=== PATIENT | female | born 1950 | race Caucasian/White ===

== ENCOUNTER 2017-03-22 10:53 | Emergency (ER) | payer MEDICARE ==
--- NOTE | 2017-03-22 11:38 | EDM.PDOC ---
ED HPI GENERAL MEDICAL PROBLEM - General Chief Complaint: Lower Extremity Injury/Pain Stated Complaint: RT HIP PAIN Time Seen by Provider: 03/22/17 11:30 Source of Information: Reports: Patient History Limitations: Reports: No Limitations - History of Present Illness INITIAL COMMENTS - FREE TEXT/NARRATIVE: 58-year-old female wants having intense pain in her right hip, did not respond to an injection that was given a week ago. Onset: Gradual (Over the past several weeks) Location: Reports: Lower Extremity, Right Quality: Reports: Sharp, Stabbing Severity: Moderate Worsens with: Reports: Other (Ambulating, abducting her right leg), Movement - Related Data Allergies Allergy/AdvReac Type Severity Reaction Status Date / Time No Known Allergies Allergy Verified 03/22/17 11:16 Home Meds: Home Meds Lisinopril 30 mg PO DAILY 03/22/17 [History] Past Medical History - Past Surgical History Musculoskeletal Surgical History: Reports: Shoulder Surgery Social & Family History - Tobacco Use Smoking Status *Q: Never Smoker Review of Systems - Review of Systems Review Of Systems: See Below Constitutional: Denies: Fever Respiratory: Denies: Shortness of Breath Cardiovascular: Denies: Chest Pain GI/Abdominal: Denies: Nausea, Vomiting Skin: Denies: Bruising, Erythema Neurological: Denies: Paresthesia ED EXAM, GENERAL - Physical Exam Exam: See Below Exam Limited By: No Limitations General Appearance: Alert, No Apparent Distress (Patient is very uncomfortable, difficulty sitting or laying) Respiratory/Chest: No Respiratory Distress Extremities: Other (Right hip is exquisitely tender to palpation over the greater trochanteric area, with increased pain with abduction of the right hip) Course - Vital Signs Last Recorded V/S: Last Vital Signs Temp 97.3 F 03/22/17 11:24 Pulse 69 03/22/17 11:24 Resp 16 03/22/17 11:24 BP 210/93 H 03/22/17 11:24 Pulse Ox 94 L 03/22/17 11:24 - Orders/Labs/Meds Meds: Medications Discontinued Medications Generic Name Dose Route Start Last Admin Trade Name Freq PRN Reason Stop Dose Admin Bupivacaine HCl 8 ml 03/22/17 12:00 03/22/17 11:49 Marcaine 0.5% INJECT 03/22/17 12:01 8 ml ONETIME ONE Administration Triamcinolone Acetonide 40 mg 03/22/17 12:00 03/22/17 11:49 Kenalog-40 INJECT 03/22/17 12:01 40 mg ONETIME ONE Administration - Re-Assessments/Exams Free Text/Narrative Re-Assessment/Exam: 03/22/17 11:57 The area was marked, sterilized with Betadine and 40 mg of Kenalog with 8 mL of 0.5% Marcaine was injected in a fan distribution through the greater trochanteric bursa. There was marked improvement in pain. She was also put on 60 mg of prednisone daily for the next 4 days. She will call Friday if not improving satisfactorily and we may have to consider an orthopedic consultation. Departure - Departure Time of Disposition: 12:11 Disposition: Home, Self-Care 01 Condition: Good Clinical Impression: Trochanteric bursitis of right hip - Discharge Information Instructions: Hip Bursitis, [id number] Referrals: Vandana Land PA [Primary Care Provider] - Forms: ED Department Discharge Care Plan Goals: Continue with pain medications as needed, take 60 mg of prednisone daily as prescribed for the next 4 days, and increase activity as tolerated. Recheck Friday if not improving satisfactorily.
[2017-03-22] MEDS ORDERED: Bupivacaine 0.5% 30 ML SDV INJECT ONE (12:00)
[2017-03-22] MEDS ORDERED: Triamcinolone Acetonide 40 MG/ML 1 ML MDV INJECT ONE (12:00)
== END 2017-03-22 12:12 | disposition home or self-care (01) ==
LOC: JP.ED 10:53
DX: M70.61 Trochanteric bursitis, right hip (principal); Z79.899 Other long term (current) drug therapy
CPT/HCPCS: 20610; 99283; J3301

== ENCOUNTER 2017-04-09 06:34 | Inpatient (IN) | payer MEDICARE ==
[2017-04-09] MEDS ORDERED: Gentamicin 40 MG/ML 2 ML Vial ONE (06:51)
[2017-04-09] MEDS ORDERED: ceFAZolin 2 GM in Premix Bag 1 BAG IV ONE (07:00)
[2017-04-09] MEDS ORDERED: Acetaminophen 500 MG Tab PO ONE (07:00)
[2017-04-09] MEDS ORDERED: Lactated Ringers 1,000 ML IV SCH (07:00)
[2017-04-09] MEDS ORDERED: Gabapentin 300 MG Cap PO ONE (07:00)
[2017-04-09] MEDS ORDERED: Scopolamine 1.5 MG Transdermal Patch TOP SCH (07:00)
[2017-04-09] MEDS ORDERED: Povidone-Iodine 10% Soln 118.25 ML Bottle ONE (07:01)
[2017-04-09] MEDS ORDERED: Propofol 200 MG/20 ML SDV ONE ×2 (07:17→09:19)
[2017-04-09] MEDS ORDERED: Midazolam 1 MG/ML 2 ML SDV ONE (07:17)
[2017-04-09] MEDS ORDERED: fentaNYL 100 MCG/2 ML SDV ONE (07:17)
[2017-04-09] MEDS ORDERED: Ketamine 500 MG/5 ML MDV IV SCH (08:00)
[2017-04-09] MEDS ORDERED: Ropivacaine 49.25 ML, Ketorolac 30 MG, EPINEPHrine 0.5 MG, cloNIDine 80 MCG, Sodium Chl... INJECT ONE ×5 (08:00)
[2017-04-09] MEDS: Tranexamic Acid 770 MG in Sodium Chloride 0.9% 50 ML IV SCH ×2 (08:55→10:50)
[2017-04-09] MEDS ORDERED: ePHEDrine 50 MG/ML SDV ONE (09:01)
[2017-04-09] MEDS ORDERED: Ondansetron 4 MG/2 ML SDV ONE (09:13)
[2017-04-09] MEDS ORDERED: Lactated Ringers 1,000 ML ONE ×2 (09:13→09:52)
[2017-04-09] MEDS ORDERED: Phenylephrine 1% 10 MG/ML SDV ONE (09:21)
[2017-04-09] MEDS ORDERED: Ondansetron 4 MG/2 ML SDV IVPUSH PRN (10:45)
[2017-04-09] MEDS ORDERED: Aluminum Hydroxide/Magnesium Hydroxide/Simethicone Susp 30 ML Cup PO PRN (10:45)
[2017-04-09] MEDS ORDERED: Morphine 2 MG/ML Syringe IVPUSH PRN (10:45)
[2017-04-09] MEDS ORDERED: oxyCODONE 5 MG Tab PO PRN (10:45)
[2017-04-09] MEDS ORDERED: traMADol 50 MG Tab PO PRN (10:45)
[2017-04-09] MEDS ORDERED: Bisacodyl 5 MG Tab PO PRN (10:45)
[2017-04-09] MEDS ORDERED: Ketorolac 30 MG/ML SDV IVPUSH PRN (10:45)
[2017-04-09] MEDS ORDERED: Sennosides 8.6 MG Tab PO PRN ×2 (10:45→11:56)
[2017-04-09] MEDS ORDERED: Diazepam 5 MG Tab PO PRN (10:45)
[2017-04-09] MEDS ORDERED: ceFAZolin 2 GM in Sodium Chloride 0.9% 50 ML IV SCH (10:45)
[2017-04-09] MEDS ORDERED: Magnesium Hydroxide 400 MG/5 ML Susp 30 ML Cup PO PRN (10:45)
[2017-04-09] MEDS ORDERED: Naloxone 0.4 MG/ML SDV IVPUSH PRN (10:45)
[2017-04-09] MEDS ORDERED: diphenhydrAMINE 50 MG/ML SDV IVPUSH PRN (10:45)
[2017-04-09] MEDS ORDERED: Zolpidem 5 MG Tab PO PRN ×2 (10:45→11:56)
[2017-04-09] MEDS ORDERED: LORazepam 1 MG Tab PO PRN (10:49)
[2017-04-09] MEDS ORDERED: Non-Formulary Medication 1 Each (Trazodone [Trazodone] 50 MG) PO PRN (10:49)
--- NOTE | 2017-04-09 11:01 | CR ---
Pelvis 1V or 2V HISTORY: post op FINDINGS: Postoperative position and alignment right total hip arthroplasty appear satisfactory. No complicatio n can be seen. Air in the soft tissues and joint is consistent with the postoperative state. IMPRESSION: Satisfactory postoperative position and alignment right total hip arthroplasty. No complication ident ified.
[2017-04-09] MEDS ORDERED: Acetaminophen 1,000 MG in Premix Bag 1 BAG IV ONE (11:15)
[2017-04-09] MEDS ORDERED: traZODone 50 MG Tab PO PRN (11:56)
[2017-04-09] MEDS: Acetaminophen/HYDROcodone 325-5 MG Tab PO PRN ×2 (13:32→19:14)
--- NOTE | 2017-04-09 15:23 | OR ---
DATE OF PROCEDURE: 04/09/2017 PREOPERATIVE DIAGNOSIS: Right hip primary osteoarthritis. POSTOPERATIVE DIAGNOSIS: Right hip primary osteoarthritis. PROCEDURE: Right hip total hip arthroplasty. RETURN TO FACTORY CLERK: Zo Chiu NP. Physician physician assistant psychiatry, Zo Chiu NP, played an essential role in assisting in this case, helping to position the patient, retract structures as needed, as well as suturing and cutting sutures as indicated. Her presence improved patient's safety and decreased operative time. ANESTHESIA: Spinal plus conscious sedation. FLUID: Lactated Ringer solution. ESTIMATED BLOOD LOSS: 50 mL. COMPLICATIONS: None. SPECIMEN: None. DISCHARGE DISPOSITION: Stable to PACU. INSTRUMENTATION: Biomet G7 cup 52 mm with 32 mm polyethylene vitamin E coated liner, a size 11 Microplasty standard offset stem with a 36 mm metal head, -3 neck. INDICATIONS FOR THE PROCEDURE: The patient was seen preoperatively in the clinic. She had failed nonoperative treatment. Preoperative imaging confirmed the above-mentioned diagnosis. Risks and benefits of the procedure were explained to the patient. Informed consent was obtained. DETAILS OF PROCEDURE: The patient was seen preoperatively by myself and the Anesthesia staff in the preoperative holding area where the operative site was marked. She was brought to the operative suite by the anesthesia staff where spinal anesthesia was administered plus conscious sedation. A sterile Valderrama catheter was placed. All extremities found to be well padded. The patient was placed into a left lateral recumbent position with an axillary roll. The right lower extremity was then prepped and draped in a sterile manner. Time-out was called identifying the correct patient, correct procedure, the correct site, and antibiotics had begun within appropriate period of time. An incision was made approximately 5 cm proximal to the greater trochanter and approximately 12 cm distal to the greater trochanter, carried down to the deep fascia and then bleeding was controlled during the case with Bovie electrocautery as well as an Aquamantys unit. Two Gelpi's were inserted. The deep fascia was divided over the iliotibial band. This had to be released a little bit later in the case because of decreased mobility to expose the acetabulum. I then went through starting at the level of the lesser trochanter and then going around the insertion of the gluteus medius and gluteus minimus at the greater trochanter and removed the capsule and incised the capsule. I then made a longitudinal incisional cut through the capsule using Bovie electrocautery and then finally over the acetabular rim with a deep #10 blade. I then made a saw cut and then using a corkscrew, removed the head. After this had been accomplished at that point, I needed to release more the iliotibial band in order to get an acetabulum exposed. I used two sharp Homans at 5 and 7 o'clock as well as a Steinmann pin in the superior acetabulum for retraction. I then used a 46 reamer to go down to the medial wall and then sequentially reamed by one up to a 51 mm reamer. This provided good bleeding bone in the acetabulum. I then trialed with a 52. We then copiously irrigated with saline and then inserted a 52. I then replaced the central hole cover and then using a 30 mm drill bit, drilled two holes in the superior and posterior acetabulum. I then placed a 30 mm screw in the superior hole and 25 mm in the posterior hole. I then placed my acetabular liner, tapped this into place, and then using the Pedro ensured that was in place. Please note that I also prior to acetabular preparation, I did remove the labrum using a Pedro and deep #10 blade. I then focused my attention on femoral preparation. I used a Bovie electrocautery unit to expose just under the tip of the greater trochanter and then used a paperboard box maker to remove the lateral bone next to the greater trochanter. I then used a curette to go down the canal and then used a canal reamer followed by lateralizing reamer and then broached from 6 to 11. The 11 appeared to have good stability. I then trialed with a -3 neck and a 36 head. This was fairly difficult to relocate and provided excellent stability with no shuck. We then removed all of our components, copiously irrigated with saline and then placed our final components and then relocated the hip, which provided excellent stability. We then used our Aquamantys unit to control any extra bleeders and then closed with the deep capsule gluteus medius and gluteus minimus with #5 Ethibond, followed by deep closure with #2 Stratafix, followed by 3-0 Stratafix, followed by Prineo and a sterile dressing. The patient was then rolled back into supine position on the hospital bed and taken to PACU in stable condition. Wade Jolly DO /[id number]
[2017-04-09] MEDS: ceFAZolin 2 GM in Sodium Chloride 0.9% 50 ML IV SCH ×2 (16:10→23:28)
[2017-04-09] MEDS: traMADol 50 MG Tab PO PRN (16:23)
[2017-04-09] MEDS: Ketorolac 30 MG/ML SDV IVPUSH SCH ×2 (17:51→23:28)
[2017-04-09] MEDS ORDERED: FLU Vacc TS 2017-18 (65yr UP)/PF 180 MCG/0.5 ML Syringe IM ONE (20:15)
[2017-04-09] MEDS: Docusate Sodium 100 MG Cap PO SCH (20:42)
[2017-04-09] MEDS ORDERED: Docusate Sodium 100 MG Cap PO SCH (21:00)
[2017-04-10] MEDS: Acetaminophen/HYDROcodone 325-5 MG Tab PO PRN (03:29)
[2017-04-10] MEDS: Ketorolac 30 MG/ML SDV IVPUSH SCH ×3 (05:55→18:11)
[2017-04-10] MEDS: Ondansetron 4 MG/2 ML SDV IVPUSH PRN ×2 (08:21→12:14)
[2017-04-10] MEDS ORDERED: Hydrochlorothiazide 25 MG Tab PO SCH (09:00)
[2017-04-10] MEDS ORDERED: Lisinopril 20 MG Tab PO SCH (09:00)
[2017-04-10] MEDS: ceFAZolin 2 GM in Sodium Chloride 0.9% 50 ML IV SCH (10:34)
[2017-04-10] MEDS: Lisinopril 10 MG Tab PO SCH (10:36)
[2017-04-10] MEDS: Sennosides 8.6 MG Tab PO SCH ×2 (10:37→20:38)
[2017-04-10] MEDS: Hydrochlorothiazide 25 MG Tab PO SCH (10:38)
[2017-04-10] MEDS: Bisacodyl 5 MG Tab PO SCH (10:38)
[2017-04-10] MEDS: Aspirin 325 MG Tab.EC PO SCH (10:38)
[2017-04-10] MEDS: Sodium Chloride 0.9% 10 ML Syringe FLUSH SCH (10:39)
[2017-04-10] MEDS: Docusate Sodium 100 MG Cap PO SCH ×2 (10:39→20:38)
[2017-04-10] MEDS ORDERED: Acetaminophen/oxyCODONE 325-5 MG Tab PO PRN (10:45)
[2017-04-10] MEDS ORDERED: Aspirin 325 MG Tab.EC PO SCH (10:45)
--- NOTE | 2017-04-10 13:04 | PCM.PN ---
- General Info Date of Service: 04/10/17 Admission Dx/Problem (Free Text): patient is status postop day 1 of a right total hip replacement. She is doing very well. Patient is tolerating her pain at this time. She does state that the Percocet makes_nauseated. We will switch her to [place]. She is ambulated without any difficulties. Functional Status: Reports: Pain Controlled, Tolerating Diet, Ambulating, Urinating - Patient Data Vitals - Most Recent: Last Vital Signs Temp 37.3 C 04/10/17 11:13 Pulse 72 04/10/17 11:13 Resp 16 04/10/17 11:13 BP 128/68 04/10/17 11:13 Pulse Ox 93 L 04/10/17 11:13 Weight - Most Recent: 167 lb I&O - Last 24 Hours: Intake & Output 04/09/17 04/10/17 04/10/17 22:59 06:59 14:59 Intake Total 160 Output Total 1050 300 200 Balance -890 -300 -200 Lab Results Last 24 Hours: Laboratory Results - last 24 hr 04/10/17 04/10/17 Range/Units 04:10 04:10 WBC 9.7 (4.5-11.0) K/uL RBC 3.56 (3.30-5.50) M/uL Hgb 10.7 L D (12.0-15.0) g/dL Hct 32.1 L (36.0-48.0) % MCV 90 (80-98) fL MCH 30 (27-31) pg MCHC 33 (32-36) % Plt Count 159 (150-400) K/uL Neut % (Auto) 83 H (36-66) % Lymph % (Auto) 9 L (24-44) % Josephine % (Auto) 7 H (2-6) % Eos % (Auto) 1 L (2-4) % Baso % (Auto) 0 (0-1) % Sodium 142 (140-148) mmol/L Potassium 3.8 (3.6-5.2) mmol/L Chloride 108 (100-108) mmol/L Carbon Dioxide 26 (21-32) mmol/L Anion Gap 7.7 (5.0-14.0) mmol/L BUN 17 (7-18) mg/dL Creatinine 0.8 (0.6-1.0) mg/dL Est Cr Clr Drug Dosing 60.56 mL/min Estimated GFR (MDRD) > 60 (>60) Glucose 132 H (74-106) mg/dL Calcium 8.3 L D (8.5-10.1) mg/dL Total Bilirubin 0.2 (0.2-1.0) mg/dL AST 23 D (15-37) U/L ALT 21 (12-78) U/L Alkaline Phosphatase 62 (46-116) U/L Total Protein 4.9 L (6.4-8.2) g/dL Albumin 2.7 L (3.4-5.0) g/dL Globulin 2.2 L (2.3-3.5) g/dL Albumin/Globulin Ratio 1.2 (1.2-2.2) Med Orders - Current: Current Medications Hydrocodone Bitart/Acetaminophen ([place] 325-5 Mg) 2 tab PO Q4H PRN PRN Reason: Pain Last Admin: 04/10/17 03:29 Dose: 2 tab Al Hydroxide/Mg Hydroxide (Mag-Al Plus) 30 ml PO Q4H PRN PRN Reason: Constipation Aspirin (Ecotrin) 325 mg PO DAILY [facility] Last Admin: 04/10/17 10:38 Dose: 325 mg Bisacodyl (Dulcolax) 10 mg PO DAILY [facility] Last Admin: 04/10/17 10:38 Dose: 10 mg Diazepam (Valium.) 5 mg PO Q6H PRN PRN Reason: Spasms Diphenhydramine HCl (Benadryl) 25 mg IVPUSH Q4H PRN PRN Reason: Itching Docusate Sodium (Colace) 100 mg PO BID [facility] Last Admin: 04/10/17 10:39 Dose: 100 mg Hydrochlorothiazide (Hydrochlorothiazide) 25 mg PO DAILY [facility] Last Admin: 04/10/17 10:38 Dose: 25 mg Lactated Ringer's (Ringers, Lactated) 1,000 mls @ 0 mls/hr IV ASDIRECTED [facility] PRN Reason: KVO Last Admin: 04/09/17 07:45 Dose: 100 mls/hr Ketorolac Tromethamine (Toradol) 15 mg IVPUSH Q6H [facility] Stop: 04/14/17 12:00 Last Admin: 04/10/17 05:55 Dose: 15 mg Lisinopril (Prinivil) 30 mg PO DAILY [facility] Last Admin: 04/10/17 10:36 Dose: 30 mg Lorazepam (Ativan) 1 mg PO DAILY PRN PRN Reason: Anxiety Magnesium Hydroxide (Milk Of Magnesia) 30 ml PO BID PRN PRN Reason: Constipation Morphine Sulfate (Morphine) 2 mg IVPUSH Q2H PRN PRN Reason: Pain Naloxone HCl (Narcan) 0.1 mg IVPUSH ONETIME PRN PRN Reason: Oversedation Ondansetron HCl (Zofran) 8 mg IVPUSH Q4H PRN PRN Reason: Nausea/Vomiting Last Admin: 04/10/17 12:14 Dose: 8 mg Scopolamine (Transderm-Scop) 1.5 mg TOP Q72H [facility] Stop: 04/12/17 05:00 Last Admin: 04/09/17 07:12 Dose: 1.5 mg Senna (Senna) 8.6 mg PO BID [facility] Last Admin: 04/10/17 10:37 Dose: 8.6 mg Sodium Chloride (Saline Flush) 10 ml FLUSH DAILY [facility] Last Admin: 04/10/17 10:39 Dose: 10 ml Tramadol HCl (Ultram) 100 mg PO Q6H PRN PRN Reason: Pain Last Admin: 04/09/17 16:23 Dose: 100 mg Trazodone HCl (Trazodone) 50 mg PO BEDTIME PRN PRN Reason: Insomnia Zolpidem Tartrate (Ambien) 5 mg PO BEDTIME PRN PRN Reason: Sleep Discontinued Medications Acetaminophen (Tylenol Extra Strength) 1,000 mg PO ONETIME ONE Stop: 04/09/17 07:01 Last Admin: 04/09/17 07:12 Dose: 1,000 mg Aspirin (Ecotrin) 325 mg PO DAILY [facility] Bisacodyl (Dulcolax) 10 mg PO DAILY PRN PRN Reason: Constipation Ropivacaine 49.25 ml/Ketorolac Tromethamine 30 mg/Epinephrine HCl 0.5 mg/ Clonidine HCl 80 mcg/ Sodium Chloride 48.45 ml 0 ml INJECT ONETIME ONE Stop: 04/09/17 08:01 Last Admin: 04/09/17 09:56 Dose: 100 ml Docusate Sodium (Colace) 100 mg PO BID [facility] Ephedrine Sulfate (Ephedrine Sulfate) Confirm Administered Dose 50 mg .ROUTE .STK-MED ONE Stop: 04/09/17 09:02 Fentanyl (Sublimaze) Confirm Administered Dose 100 mcg .ROUTE .STK-MED ONE Stop: 04/09/17 07:18 Gabapentin (Neurontin) 300 mg PO ONETIME ONE Stop: 04/09/17 07:01 Last Admin: 04/09/17 07:11 Dose: 300 mg Gentamicin Sulfate (Gentamicin) Confirm Administered Dose 240 mg .ROUTE .ST- MED ONE Stop: 04/09/17 06:52 Last Admin: 04/09/17 09:37 Dose: 240 mg Hydrochlorothiazide (Hydrochlorothiazide) 25 mg PO DAILY [facility] Cefazolin Sodium 2 gm/ Premix 20 mls @ 600 mls/hr IV ONETIME ONE Stop: 04/09/17 07:01 Last Admin: 04/09/17 08:30 Dose: 600 mls/hr Tranexamic Acid 770 mg/ Sodium (Chloride) 57.7 mls @ 230.8 mls/hr IV Q3H [facility] Stop: 04/09/17 11:14 Last Admin: 04/09/17 10:50 Dose: 230.8 mls/hr Ketamine HCl 100 mg/ Sodium (Chloride) 100 mls @ 17.1 mls/hr IV ASDIRECTED [facility] PRN Reason: 5 MCG/KG/MIN Lactated Ringer's (Ringers, Lactated) Confirm Administered Dose 1,000 mls @ as directed .ROUTE .STK-MED ONE Stop: 04/09/17 09:14 Lactated Ringer's (Ringers, Lactated) Confirm Administered Dose 1,000 mls @ as directed .ROUTE .ST-MED ONE Stop: 04/09/17 09:53 Acetaminophen 1,000 mg/ Premix 100 mls @ 400 mls/hr IV NOW ONE Stop: 04/09/17 11:29 Last Admin: 04/09/17 12:25 Dose: 400 mls/hr Cefazolin Sodium 2 gm/ Sodium (Chloride) 50 mls @ 100 mls/hr IV Q8H [facility] Stop: 04/10/17 03:14 Last Admin: 04/09/17 12:11 Dose: Not Given Cefazolin Sodium 2 gm/ Sodium (Chloride) 50 mls @ 100 mls/hr IV Q8H [facility] Stop: 04/10/17 08:29 Last Admin: 04/10/17 10:34 Dose: 100 mls/hr Influenza Virus Vaccine (Pharmacy To Dose - Influenza Vaccine) 1 each IM ONETIME ONE Stop: 04/10/17 13:01 Influenza Virus Vaccine (Fluzone High-Dose ) 180 mcg IM .ONCE ONE Stop: 04/09/17 20:16 Ketamine HCl (Ketalar) 29 mg IV ASDIRECTED [facility] Ketorolac Tromethamine (Toradol) 15 mg IVPUSH Q8H PRN PRN Reason: Pain Stop: 04/14/17 10:45 Last Admin: 04/09/17 12:00 Dose: 15 mg Lisinopril (Prinivil) 30 mg PO DAILY [facility] Midazolam HCl (Versed 1 Mg/Ml) Confirm Administered Dose 2 mg .ROUTE .STK-MED ONE Stop: 04/09/17 07:18 Non-Formulary Medication (Trazodone [Trazodone]) 50 mg PO BEDTIME PRN PRN Reason: Insomnia Ondansetron HCl (Zofran) Confirm Administered Dose 4 mg .ROUTE .STK-MED ONE Stop: 04/09/17 09:14 Ondansetron HCl (Zofran) 8 mg IVPUSH Q4H PRN PRN Reason: Nausea/Vomiting Oxycodone HCl (Oxycodone) 10 mg PO Q4H PRN PRN Reason: Pain Stop: 04/10/17 10:45 Oxycodone/Acetaminophen (Percocet 325-5 Mg) 2 tab PO Q4H PRN PRN Reason: Pain Phenylephrine HCl (Uche-Synephrine) Confirm Administered Dose 10 mg .ROUTE .STK- MED ONE Stop: 04/09/17 09:22 Povidone Iodine (Betadine 10% Soln) Confirm Administered Dose 1 ml .ROUTE .STK- MED ONE Stop: 04/09/17 07:02 Last Admin: 04/09/17 09:38 Dose: 1 ml Propofol (Diprivan 20 Ml) Confirm Administered Dose 200 mg .ROUTE .STK-MED ONE Stop: 04/09/17 07:18 Propofol (Diprivan 20 Ml) Confirm Administered Dose 200 mg .ROUTE .STK-MED ONE Stop: 04/09/17 09:20 Senna (Senna) 8.6 mg PO BID PRN PRN Reason: Constipation Senna (Senna) 8.6 mg PO BID PRN PRN Reason: Constipation Tramadol HCl (Ultram) 100 mg PO Q6H PRN PRN Reason: Pain Zolpidem Tartrate (Ambien) 5 mg PO BEDTIME PRN PRN Reason: Sleep - Exam General: Alert, Oriented Extremities: Slow Capillary Refill, Limited Range of Motion Peripheral Pulses: 2+: Dorsalis Pedis (L), Dorsalis Pedis (R) Skin: Warm, Dry, Intact Wound/Incisions: Healing Well, Dressing Dry and Intact Neurological: No New Focal Deficit Psy/Mental Status: Alert - Problem List Review Problem List Initiated/Reviewed/Updated: Yes - My Orders Last 24 Hours: My Active Orders 04/09/17 12:47 Acetaminophen/HYDROcodone [[place] 325-5 MG] 2 tab PO Q4H PRN 04/09/17 18:00 Ketorolac [Toradol] 15 mg IVPUSH Q6H 04/09/17 21:00 Docusate Sodium [Colace] 100 mg PO BID 04/10/17 09:00 Aspirin [Ecotrin] 325 mg PO DAILY Bisacodyl [Dulcolax] 10 mg PO DAILY Hydrochlorothiazide 25 mg PO DAILY Lisinopril [Prinivil] 30 mg PO DAILY Sennosides [Senna] 8.6 mg PO BID Sodium Chloride 0.9% [Saline Flush] 10 ml FLUSH DAILY 04/10/17 10:45 Convert IV to Saline Lock [OM.PC] PER UNIT ROUTINE Ice Therapy [OM.PC] PER UNIT ROUTINE 04/11/17 05:15 CBC WITH AUTO DIFF [HEME] DAILY COMPREHENSIVE METABOLIC PN,CMP [CHEM] DAILY 04/12/17 05:15 CBC WITH AUTO DIFF [HEME] DAILY COMPREHENSIVE METABOLIC PN,CMP [CHEM] DAILY 04/13/17 05:15 CBC WITH AUTO DIFF [HEME] DAILY COMPREHENSIVE METABOLIC PN,CMP [CHEM] DAILY - Plan Plan:: at this time patient is doing very well. We will follow up with her in the morning. We'll plan for discharge tomorrow. I would like patient to be on scheduled Toradol and [place] at this time. She can have Zofran as needed. He is to continue with PT OT for strengthening today.
[2017-04-11] MEDS: Ketorolac 30 MG/ML SDV IVPUSH SCH ×4 (00:02→17:49)
[2017-04-11] MEDS ORDERED: Bisacodyl 10 MG Supp RECTAL PRN (08:07)
[2017-04-11] MEDS: Metoclopramide 10 MG/2 ML SDV IVPUSH SCH ×3 (08:26→21:35)
[2017-04-11] MEDS: Hydrochlorothiazide 25 MG Tab PO SCH (08:57)
[2017-04-11] MEDS: Docusate Sodium 100 MG Cap PO SCH ×2 (08:57→21:35)
[2017-04-11] MEDS: Aspirin 325 MG Tab.EC PO SCH (08:58)
[2017-04-11] MEDS: Lisinopril 10 MG Tab PO SCH (08:58)
[2017-04-11] MEDS: Bisacodyl 5 MG Tab PO SCH (08:58)
[2017-04-11] MEDS: Sennosides 8.6 MG Tab PO SCH ×2 (08:59→21:35)
[2017-04-11] MEDS: Sodium Chloride 0.9% 10 ML Syringe FLUSH SCH (08:59)
[2017-04-12] MEDS: Ketorolac 30 MG/ML SDV IVPUSH SCH ×3 (00:16→11:39)
[2017-04-12] MEDS ORDERED: Acetaminophen 325 MG Tab PO PRN (02:14)
[2017-04-12] MEDS: Metoclopramide 10 MG/2 ML SDV IVPUSH SCH ×2 (02:44→08:31)
[2017-04-12] MEDS: Docusate Sodium 100 MG Cap PO SCH (08:20)
[2017-04-12] MEDS: Bisacodyl 5 MG Tab PO SCH (08:20)
[2017-04-12] MEDS: Sennosides 8.6 MG Tab PO SCH (08:20)
[2017-04-12] MEDS: traMADol 50 MG Tab PO PRN (08:29)
[2017-04-12] MEDS: Aspirin 325 MG Tab.EC PO SCH (08:30)
[2017-04-12] MEDS: Sodium Chloride 0.9% 10 ML Syringe FLUSH SCH (08:30)
[2017-04-12] MEDS: Hydrochlorothiazide 25 MG Tab PO SCH (08:30)
[2017-04-12] MEDS: Lisinopril 10 MG Tab PO SCH (08:31)
--- NOTE | 2017-04-12 10:13 | PCM.PN ---
- General Info Date of Service: 04/11/17 Admission Dx/Problem (Free Text): Patient is pod 2 of a right total hip. She is doing well. She is having nausea from her pain medication at this time. She is ambulating without any difficulties. Functional Status: Reports: Pain Controlled, Tolerating Diet, Ambulating, Urinating - Patient Data Vitals - Most Recent: Last Vital Signs Temp 36.6 C 04/12/17 07:41 Pulse 70 04/12/17 07:41 Resp 16 04/12/17 07:41 BP 132/68 04/12/17 08:31 Pulse Ox 96 04/12/17 07:41 Weight - Most Recent: 167 lb I&O - Last 24 Hours: Intake & Output 04/11/17 04/12/17 04/12/17 22:59 06:59 14:59 Intake Total 240 Balance 240 Lab Results Last 24 Hours: Laboratory Results - last 24 hr 04/12/17 04/12/17 Range/Units 04:52 04:52 WBC 9.1 (4.5-11.0) K/uL RBC 3.30 (3.30-5.50) M/uL Hgb 9.8 L (12.0-15.0) g/dL Hct 30.0 L (36.0-48.0) % MCV 91 (80-98) fL MCH 30 (27-31) pg MCHC 33 (32-36) % Plt Count 186 (150-400) K/uL Neut % (Auto) 80 H (36-66) % Lymph % (Auto) 13 L (24-44) % [place] % (Auto) 6 (2-6) % Eos % (Auto) 1 L (2-4) % Baso % (Auto) 0 (0-1) % Sodium 140 (140-148) mmol/L Potassium 3.3 L (3.6-5.2) mmol/L Chloride 106 (100-108) mmol/L Carbon Dioxide 28 (21-32) mmol/L Anion Gap 9.3 (5.0-14.0) mmol/L BUN 14 (7-18) mg/dL Creatinine 0.7 (0.6-1.0) mg/dL Est Cr Clr Drug Dosing 69.21 mL/min Estimated GFR (MDRD) > 60 (>60) Glucose 132 H (74-106) mg/dL Calcium 8.8 (8.5-10.1) mg/dL Total Bilirubin 0.4 (0.2-1.0) mg/dL AST 23 (15-37) U/L ALT 17 (12-78) U/L Alkaline Phosphatase 53 (46-116) U/L Total Protein 5.2 L (6.4-8.2) g/dL Albumin 2.4 L (3.4-5.0) g/dL Globulin 2.8 (2.3-3.5) g/dL Albumin/Globulin Ratio 0.9 L (1.2-2.2) Med Orders - Current: Current Medications Acetaminophen (Tylenol) 650 mg PO Q4H PRN PRN Reason: Pain Last Admin: 04/12/17 02:33 Dose: 650 mg Hydrocodone Bitart/Acetaminophen ([place] 325-5 Mg) 2 tab PO Q4H PRN PRN Reason: Pain Last Admin: 04/10/17 03:29 Dose: 2 tab Al Hydroxide/Mg Hydroxide (Mag-Al Plus) 30 ml PO Q4H PRN PRN Reason: Constipation Aspirin (Ecotrin) 325 mg PO DAILY [facility] Last Admin: 04/12/17 08:30 Dose: 325 mg Bisacodyl (Dulcolax) 10 mg PO DAILY [facility] Last Admin: 04/12/17 08:20 Dose: Not Given Bisacodyl (Dulcolax) 10 mg RECTAL DAILY PRN PRN Reason: Constipation Diazepam (Valium.) 5 mg PO Q6H PRN PRN Reason: Spasms Diphenhydramine HCl (Benadryl) 25 mg IVPUSH Q4H PRN PRN Reason: Itching Docusate Sodium (Colace) 100 mg PO BID [facility] Last Admin: 04/12/17 08:20 Dose: Not Given Hydrochlorothiazide (Hydrochlorothiazide) 25 mg PO DAILY [facility] Last Admin: 04/12/17 08:30 Dose: 25 mg Lactated Ringer's (Ringers, Lactated) 1,000 mls @ 0 mls/hr IV ASDIRECTED [facility] PRN Reason: KVO Last Admin: 04/09/17 07:45 Dose: 100 mls/hr Ketorolac Tromethamine (Toradol) 15 mg IVPUSH Q6H [facility] Stop: 04/14/17 12:00 Last Admin: 04/12/17 05:59 Dose: 15 mg Lisinopril (Prinivil) 30 mg PO DAILY [facility] Last Admin: 04/12/17 08:31 Dose: 30 mg Lorazepam (Ativan) 1 mg PO DAILY PRN PRN Reason: Anxiety Last Admin: 04/12/17 02:33 Dose: 0.5 mg Magnesium Hydroxide (Milk Of Magnesia) 30 ml PO BID PRN PRN Reason: Constipation Metoclopramide HCl (Reglan) 10 mg IVPUSH Q6H [facility] Last Admin: 04/12/17 08:31 Dose: 10 mg Morphine Sulfate (Morphine) 2 mg IVPUSH Q2H PRN PRN Reason: Pain Naloxone HCl (Narcan) 0.1 mg IVPUSH ONETIME PRN PRN Reason: Oversedation Ondansetron HCl (Zofran) 8 mg IVPUSH Q4H PRN PRN Reason: Nausea/Vomiting Last Admin: 04/10/17 12:14 Dose: 8 mg Senna (Senna) 8.6 mg PO BID [facility] Last Admin: 04/12/17 08:20 Dose: Not Given Sodium Chloride (Saline Flush) 10 ml FLUSH DAILY [facility] Last Admin: 04/12/17 08:30 Dose: 10 ml Tramadol HCl (Ultram) 100 mg PO Q6H PRN PRN Reason: Pain Last Admin: 04/12/17 08:29 Dose: 100 mg Trazodone HCl (Trazodone) 50 mg PO BEDTIME PRN PRN Reason: Insomnia Zolpidem Tartrate (Ambien) 5 mg PO BEDTIME PRN PRN Reason: Sleep Discontinued Medications Acetaminophen (Tylenol Extra Strength) 1,000 mg PO ONETIME ONE Stop: 04/09/17 07:01 Last Admin: 04/09/17 07:12 Dose: 1,000 mg Aspirin (Ecotrin) 325 mg PO DAILY [facility] Bisacodyl (Dulcolax) 10 mg PO DAILY PRN PRN Reason: Constipation Ropivacaine 49.25 ml/Ketorolac Tromethamine 30 mg/Epinephrine HCl 0.5 mg/ Clonidine HCl 80 mcg/ Sodium Chloride 48.45 ml 0 ml INJECT ONETIME ONE Stop: 04/09/17 08:01 Last Admin: 04/09/17 09:56 Dose: 100 ml Docusate Sodium (Colace) 100 mg PO BID [facility] Ephedrine Sulfate (Ephedrine Sulfate) Confirm Administered Dose 50 mg .ROUTE .[facility] ONE Stop: 04/09/17 09:02 Fentanyl (Sublimaze) Confirm Administered Dose 100 mcg .ROUTE .[facility] ONE Stop: 04/09/17 07:18 Gabapentin (Neurontin) 300 mg PO ONETIME ONE Stop: 04/09/17 07:01 Last Admin: 04/09/17 07:11 Dose: 300 mg Gentamicin Sulfate (Gentamicin) Confirm Administered Dose 240 mg .ROUTE .[facility] ONE Stop: 04/09/17 06:52 Last Admin: 04/09/17 09:37 Dose: 240 mg Hydrochlorothiazide (Hydrochlorothiazide) 25 mg PO DAILY [facility] Cefazolin Sodium 2 gm/ Premix 20 mls @ 600 mls/hr IV ONETIME ONE Stop: 04/09/17 07:01 Last Admin: 04/09/17 08:30 Dose: 600 mls/hr Tranexamic Acid 770 mg/ Sodium (Chloride) 57.7 mls @ 230.8 mls/hr IV Q3H [facility] Stop: 04/09/17 11:14 Last Admin: 04/09/17 10:50 Dose: 230.8 mls/hr Ketamine HCl 100 mg/ Sodium (Chloride) 100 mls @ 17.1 mls/hr IV ASDIRECTED [facility] PRN Reason: 5 MCG/KG/MIN Lactated Ringer's (Ringers, Lactated) Confirm Administered Dose 1,000 mls @ as directed .ROUTE .[facility] ONE Stop: 04/09/17 09:14 Lactated Ringer's (Ringers, Lactated) Confirm Administered Dose 1,000 mls @ as directed .ROUTE .[facility] ONE Stop: 04/09/17 09:53 Acetaminophen 1,000 mg/ Premix 100 mls @ 400 mls/hr IV NOW ONE Stop: 04/09/17 11:29 Last Admin: 04/09/17 12:25 Dose: 400 mls/hr Cefazolin Sodium 2 gm/ Sodium (Chloride) 50 mls @ 100 mls/hr IV Q8H [facility] Stop: 04/10/17 03:14 Last Admin: 04/09/17 12:11 Dose: Not Given Cefazolin Sodium 2 gm/ Sodium (Chloride) 50 mls @ 100 mls/hr IV Q8H [facility] Stop: 04/10/17 08:29 Last Admin: 04/10/17 10:34 Dose: 100 mls/hr Influenza Virus Vaccine (Pharmacy To Dose - Influenza Vaccine) 1 each IM ONETIME ONE Stop: 04/10/17 13:01 Influenza Virus Vaccine (Fluzone High-Dose 2016-) 180 mcg IM .ONCE ONE Stop: 04/09/17 20:16 Last Admin: 04/10/17 20:34 Dose: Not Given Ketamine HCl (Ketalar) 29 mg IV ASDIRECTED [facility] Ketorolac Tromethamine (Toradol) 15 mg IVPUSH Q8H PRN PRN Reason: Pain Stop: 04/14/17 10:45 Last Admin: 04/09/17 12:00 Dose: 15 mg Lisinopril (Prinivil) 30 mg PO DAILY [facility] Midazolam HCl (Versed 1 Mg/Ml) Confirm Administered Dose 2 mg .ROUTE .[facility] ONE Stop: 04/09/17 07:18 Non-Formulary Medication (Trazodone [Trazodone]) 50 mg PO BEDTIME PRN PRN Reason: Insomnia Ondansetron HCl (Zofran) Confirm Administered Dose 4 mg .ROUTE .[facility] ONE Stop: 04/09/17 09:14 Ondansetron HCl (Zofran) 8 mg IVPUSH Q4H PRN PRN Reason: Nausea/Vomiting Oxycodone HCl (Oxycodone) 10 mg PO Q4H PRN PRN Reason: Pain Stop: 04/10/17 10:45 Oxycodone/Acetaminophen (Percocet 325-5 Mg) 2 tab PO Q4H PRN PRN Reason: Pain Phenylephrine HCl ([place]-Synephrine) Confirm Administered Dose 10 mg .ROUTE .STK- MED ONE Stop: 04/09/17 09:22 Povidone Iodine (Betadine 10% Soln) Confirm Administered Dose 1 ml .ROUTE .STK- MED ONE Stop: 04/09/17 07:02 Last Admin: 04/09/17 09:38 Dose: 1 ml Propofol (Diprivan 20 Ml) Confirm Administered Dose 200 mg .ROUTE .STK-MED ONE Stop: 04/09/17 07:18 Propofol (Diprivan 20 Ml) Confirm Administered Dose 200 mg .ROUTE .STK-MED ONE Stop: 04/09/17 09:20 Scopolamine (Transderm-Scop) 1.5 mg TOP Q72H [facility] Stop: 04/12/17 05:00 Last Admin: 04/09/17 07:12 Dose: 1.5 mg Senna (Senna) 8.6 mg PO BID PRN PRN Reason: Constipation Senna (Senna) 8.6 mg PO BID PRN PRN Reason: Constipation Tramadol HCl (Ultram) 100 mg PO Q6H PRN PRN Reason: Pain Zolpidem Tartrate (Ambien) 5 mg PO BEDTIME PRN PRN Reason: Sleep - Exam General: Alert, Oriented Peripheral Pulses: 2+: Dorsalis Pedis (L), Dorsalis Pedis (R) Skin: Warm, Dry, Intact Wound/Incisions: Healing Well, Dressing Dry and Intact - Problem List Review Problem List Initiated/Reviewed/Updated: Yes - My Orders Last 24 Hours: My Active Orders 04/12/17 10:09 Ready for Discharge [RC] PER UNIT ROUTINE 04/13/17 05:15 CBC WITH AUTO DIFF [HEME] DAILY COMPREHENSIVE METABOLIC PN,CMP [CHEM] DAILY - Plan Plan:: at this time patient is doing very well. We will follow up with her in the morning. We are going to give her a suppository today. We are also going to change her pain medication to ultram and start reglan for her nausea. She will continue to work on strengthening today with PT/OT.
--- NOTE | 2017-04-12 10:14 | PCM.DCSUM1 ---
Discharge Summary - Hospital Course Free Text/Narrative:: Patient is pod 3 of a right total hip. She is doing well. Pain is under control. She is having no nausea at this time. She is ambulating without any difficulties. - Discharge Data Discharge Date: 04/12/17 Discharge Disposition: Home, Self-Care 01 Condition: Good - Patient Summary/Data Consults: Consultations 04/09/17 10:45 OT Evaluation and Treatment [CONS] Routine Please Evaluate and Treat. OT Reason for Consult: Strengthening This query below is only for informational purposes and is not editable. PT Evaluation and Treatment [CONS] Routine Please Evaluate and Treat. PT Reason for Consult: Strengthening This query below is only for informational purposes and is not editable. - Patient Instructions Diet: Usual Diet as Tolerated Activity: Apply Ice, As Tolerated Driving: Do Not Drive Showering/Bathing: May Shower, No Tub Bathing/Swimming Wound/Incision Care: Keep Operative Site/Wound Site Clean and Dry Notify Provider of: Fever, Increased Pain, Swelling and Redness, Drainage, Nausea and/or Vomiting - Discharge Plan Prescriptions/Med Rec: Aspirin [Ecotrin] 325 mg PO DAILY #30 tab.ec Docusate Sodium [Colace] 100 mg PO BID #60 cap Ondansetron [Zofran ODT] 4 mg PO Q6H PRN #30 tab.dis PRN Reason: Nausea traMADol [Ultram] 50 mg PO Q6H PRN #90 tablet PRN Reason: Pain Home Medications: Home Meds Lisinopril 30 mg PO DAILY 03/22/17 [History] Hydrochlorothiazide 25 mg PO DAILY 04/09/17 [History] LORazepam [Ativan] 1 mg PO DAILY PRN 04/09/17 [History] traZODone 50 mg PO BEDTIME PRN 04/09/17 [History] Aspirin [Ecotrin] 325 mg PO DAILY #30 tab.ec 04/12/17 [Rx] Docusate Sodium [Colace] 100 mg PO BID #60 cap 04/12/17 [Rx] Ondansetron [Zofran ODT] 4 mg PO Q6H PRN #30 tab.dis 04/12/17 [Rx] traMADol [Ultram] 50 mg PO Q6H PRN #90 tablet 04/12/17 [Rx] - Discharge Summary/Plan Comment DC Time >30 min.: Yes Discharge Summary/Plan Comment: Patient will be dcd today with home PT. She is to follow up in 2 weeks. She is to take ultram as needed for pain. - Patient Data Vitals - Most Recent: Last Vital Signs Temp 36.6 C 04/12/17 07:41 Pulse 70 04/12/17 07:41 Resp 16 04/12/17 07:41 BP 132/68 04/12/17 08:31 Pulse Ox 96 04/12/17 07:41 Weight - Most Recent: 167 lb I&O - Last 24 hours: Intake & Output 04/11/17 04/12/17 04/12/17 22:59 06:59 14:59 Intake Total 240 Balance 240 Lab Results - Last 24 hrs: Laboratory Results - last 24 hr 04/12/17 04/12/17 Range/Units 04:52 04:52 WBC 9.1 (4.5-11.0) K/uL RBC 3.30 (3.30-5.50) M/uL Hgb 9.8 L (12.0-15.0) g/dL Hct 30.0 L (36.0-48.0) % MCV 91 (80-98) fL MCH 30 (27-31) pg MCHC 33 (32-36) % Plt Count 186 (150-400) K/uL Neut % (Auto) 80 H (36-66) % Lymph % (Auto) 13 L (24-44) % [place] % (Auto) 6 (2-6) % Eos % (Auto) 1 L (2-4) % Baso % (Auto) 0 (0-1) % Sodium 140 (140-148) mmol/L Potassium 3.3 L (3.6-5.2) mmol/L Chloride 106 (100-108) mmol/L Carbon Dioxide 28 (21-32) mmol/L Anion Gap 9.3 (5.0-14.0) mmol/L BUN 14 (7-18) mg/dL Creatinine 0.7 (0.6-1.0) mg/dL Est Cr Clr Drug Dosing 69.21 mL/min Estimated GFR (MDRD) > 60 (>60) Glucose 132 H (74-106) mg/dL Calcium 8.8 (8.5-10.1) mg/dL Total Bilirubin 0.4 (0.2-1.0) mg/dL AST 23 (15-37) U/L ALT 17 (12-78) U/L Alkaline Phosphatase 53 (46-116) U/L Total Protein 5.2 L (6.4-8.2) g/dL Albumin 2.4 L (3.4-5.0) g/dL Globulin 2.8 (2.3-3.5) g/dL Albumin/Globulin Ratio 0.9 L (1.2-2.2) Med Orders - Current: Current Medications Acetaminophen (Tylenol) 650 mg PO Q4H PRN PRN Reason: Pain Last Admin: 04/12/17 02:33 Dose: 650 mg Hydrocodone Bitart/Acetaminophen ([place] 325-5 Mg) 2 tab PO Q4H PRN PRN Reason: Pain Last Admin: 04/10/17 03:29 Dose: 2 tab Al Hydroxide/Mg Hydroxide (Mag-Al Plus) 30 ml PO Q4H PRN PRN Reason: Constipation Aspirin (Ecotrin) 325 mg PO DAILY [facility] Last Admin: 04/12/17 08:30 Dose: 325 mg Bisacodyl (Dulcolax) 10 mg PO DAILY [facility] Last Admin: 04/12/17 08:20 Dose: Not Given Bisacodyl (Dulcolax) 10 mg RECTAL DAILY PRN PRN Reason: Constipation Diazepam (Valium.) 5 mg PO Q6H PRN PRN Reason: Spasms Diphenhydramine HCl (Benadryl) 25 mg IVPUSH Q4H PRN PRN Reason: Itching Docusate Sodium (Colace) 100 mg PO BID [facility] Last Admin: 04/12/17 08:20 Dose: Not Given Hydrochlorothiazide (Hydrochlorothiazide) 25 mg PO DAILY [facility] Last Admin: 04/12/17 08:30 Dose: 25 mg Lactated Ringer's (Ringers, Lactated) 1,000 mls @ 0 mls/hr IV ASDIRECTED [facility] PRN Reason: KVO Last Admin: 04/09/17 07:45 Dose: 100 mls/hr Ketorolac Tromethamine (Toradol) 15 mg IVPUSH Q6H [facility] Stop: 04/14/17 12:00 Last Admin: 04/12/17 05:59 Dose: 15 mg Lisinopril (Prinivil) 30 mg PO DAILY [facility] Last Admin: 04/12/17 08:31 Dose: 30 mg Lorazepam (Ativan) 1 mg PO DAILY PRN PRN Reason: Anxiety Last Admin: 04/12/17 02:33 Dose: 0.5 mg Magnesium Hydroxide (Milk Of Magnesia) 30 ml PO BID PRN PRN Reason: Constipation Metoclopramide HCl (Reglan) 10 mg IVPUSH Q6H [facility] Last Admin: 04/12/17 08:31 Dose: 10 mg Morphine Sulfate (Morphine) 2 mg IVPUSH Q2H PRN PRN Reason: Pain Naloxone HCl (Narcan) 0.1 mg IVPUSH ONETIME PRN PRN Reason: Oversedation Ondansetron HCl (Zofran) 8 mg IVPUSH Q4H PRN PRN Reason: Nausea/Vomiting Last Admin: 04/10/17 12:14 Dose: 8 mg Senna (Senna) 8.6 mg PO BID [facility] Last Admin: 04/12/17 08:20 Dose: Not Given Sodium Chloride (Saline Flush) 10 ml FLUSH DAILY [facility] Last Admin: 04/12/17 08:30 Dose: 10 ml Tramadol HCl (Ultram) 100 mg PO Q6H PRN PRN Reason: Pain Last Admin: 04/12/17 08:29 Dose: 100 mg Trazodone HCl (Trazodone) 50 mg PO BEDTIME PRN PRN Reason: Insomnia Zolpidem Tartrate (Ambien) 5 mg PO BEDTIME PRN PRN Reason: Sleep Discontinued Medications Acetaminophen (Tylenol Extra Strength) 1,000 mg PO ONETIME ONE Stop: 04/09/17 07:01 Last Admin: 04/09/17 07:12 Dose: 1,000 mg Aspirin (Ecotrin) 325 mg PO DAILY [facility] Bisacodyl (Dulcolax) 10 mg PO DAILY PRN PRN Reason: Constipation Ropivacaine 49.25 ml/Ketorolac Tromethamine 30 mg/Epinephrine HCl 0.5 mg/ Clonidine HCl 80 mcg/ Sodium Chloride 48.45 ml 0 ml INJECT ONETIME ONE Stop: 04/09/17 08:01 Last Admin: 04/09/17 09:56 Dose: 100 ml Docusate Sodium (Colace) 100 mg PO BID [facility] Ephedrine Sulfate (Ephedrine Sulfate) Confirm Administered Dose 50 mg .ROUTE .[facility] ONE Stop: 04/09/17 09:02 Fentanyl (Sublimaze) Confirm Administered Dose 100 mcg .ROUTE .[facility] ONE Stop: 04/09/17 07:18 Gabapentin (Neurontin) 300 mg PO ONETIME ONE Stop: 04/09/17 07:01 Last Admin: 04/09/17 07:11 Dose: 300 mg Gentamicin Sulfate (Gentamicin) Confirm Administered Dose 240 mg .ROUTE .[facility] ONE Stop: 04/09/17 06:52 Last Admin: 04/09/17 09:37 Dose: 240 mg Hydrochlorothiazide (Hydrochlorothiazide) 25 mg PO DAILY [facility] Cefazolin Sodium 2 gm/ Premix 20 mls @ 600 mls/hr IV ONETIME ONE Stop: 04/09/17 07:01 Last Admin: 04/09/17 08:30 Dose: 600 mls/hr Tranexamic Acid 770 mg/ Sodium (Chloride) 57.7 mls @ 230.8 mls/hr IV Q3H [facility] Stop: 04/09/17 11:14 Last Admin: 04/09/17 10:50 Dose: 230.8 mls/hr Ketamine HCl 100 mg/ Sodium (Chloride) 100 mls @ 17.1 mls/hr IV ASDIRECTED [facility] PRN Reason: 5 MCG/KG/MIN Lactated Ringer's (Ringers, Lactated) Confirm Administered Dose 1,000 mls @ as directed .ROUTE .[facility] ONE Stop: 04/09/17 09:14 Lactated Ringer's (Ringers, Lactated) Confirm Administered Dose 1,000 mls @ as directed .ROUTE .[facility] ONE Stop: 04/09/17 09:53 Acetaminophen 1,000 mg/ Premix 100 mls @ 400 mls/hr IV NOW ONE Stop: 04/09/17 11:29 Last Admin: 04/09/17 12:25 Dose: 400 mls/hr Cefazolin Sodium 2 gm/ Sodium (Chloride) 50 mls @ 100 mls/hr IV Q8H [facility] Stop: 04/10/17 03:14 Last Admin: 04/09/17 12:11 Dose: Not Given Cefazolin Sodium 2 gm/ Sodium (Chloride) 50 mls @ 100 mls/hr IV Q8H [facility] Stop: 04/10/17 08:29 Last Admin: 04/10/17 10:34 Dose: 100 mls/hr Influenza Virus Vaccine (Pharmacy To Dose - Influenza Vaccine) 1 each IM ONETIME ONE Stop: 04/10/17 13:01 Influenza Virus Vaccine (Fluzone High-Dose ) 180 mcg IM .ONCE ONE Stop: 04/09/17 20:16 Last Admin: 04/10/17 20:34 Dose: Not Given Ketamine HCl (Ketalar) 29 mg IV ASDIRECTED [facility] Ketorolac Tromethamine (Toradol) 15 mg IVPUSH Q8H PRN PRN Reason: Pain Stop: 04/14/17 10:45 Last Admin: 04/09/17 12:00 Dose: 15 mg Lisinopril (Prinivil) 30 mg PO DAILY [facility] Midazolam HCl (Versed 1 Mg/Ml) Confirm Administered Dose 2 mg .ROUTE .[facility] ONE Stop: 04/09/17 07:18 Non-Formulary Medication (Trazodone [Trazodone]) 50 mg PO BEDTIME PRN PRN Reason: Insomnia Ondansetron HCl (Zofran) Confirm Administered Dose 4 mg .ROUTE .[facility] Stop: 04/09/17 09:14 Ondansetron HCl (Zofran) 8 mg IVPUSH Q4H PRN PRN Reason: Nausea/Vomiting Oxycodone HCl (Oxycodone) 10 mg PO Q4H PRN PRN Reason: Pain Stop: 04/10/17 10:45 Oxycodone/Acetaminophen (Percocet 325-5 Mg) 2 tab PO Q4H PRN PRN Reason: Pain Phenylephrine HCl ([place]-Synephrine) Confirm Administered Dose 10 mg .ROUTE .STK- MED ONE Stop: 04/09/17 09:22 Povidone Iodine (Betadine 10% Soln) Confirm Administered Dose 1 ml .ROUTE .[facility]K- MED ONE Stop: 04/09/17 07:02 Last Admin: 04/09/17 09:38 Dose: 1 ml Propofol (Diprivan 20 Ml) Confirm Administered Dose 200 mg .ROUTE .STK-MED ONE Stop: 04/09/17 07:18 Propofol (Diprivan 20 Ml) Confirm Administered Dose 200 mg .ROUTE .STK-MED ONE Stop: 04/09/17 09:20 Scopolamine (Transderm-Scop) 1.5 mg TOP Q72H [facility] Stop: 04/12/17 05:00 Last Admin: 04/09/17 07:12 Dose: 1.5 mg Senna (Senna) 8.6 mg PO BID PRN PRN Reason: Constipation Senna (Senna) 8.6 mg PO BID PRN PRN Reason: Constipation Tramadol HCl (Ultram) 100 mg PO Q6H PRN PRN Reason: Pain Zolpidem Tartrate (Ambien) 5 mg PO BEDTIME PRN PRN Reason: Sleep - Exam General: Reports: Alert, Oriented Extremities: Normal Inspection, Normal Range of Motion Skin: Reports: Warm, Dry, Intact Wound/Incisions: Reports: Healing Well, Dressing Dry and Intact Neurological: Reports: No New Focal Deficit Psy/Mental Status: Reports: Alert *Q Meaningful Use (DIS) - VTE *Q VTE Criteria *Q: - Stroke *Q Stroke Criteria *Q: - AMI *Q AMI Criteria *Q:
== END 2017-04-12 13:20 | disposition home or self-care (01) | DRG 470 ==
LOC: JP.MS 06:34 → JP.SDS 06:38 → EDSTATUS 09:15 → JP.MS 10:45 → UNDOADMIN 10:45 → JP.MS 11:56 → UNDODISIN 04-12 13:20
PROVIDERS: ADMIT Orthopaedic Surgery; ATTEND Orthopaedic Surgery
PROC: 0SR90JZ Replacement of Right Hip Joint with Synthetic Substitute, Open Approach (ICD-10-PCS; principal; 2017-04-09)
DX: M16.11 Unilateral primary osteoarthritis, right hip (principal); Z79.82 Long term (current) use of aspirin
CPT/HCPCS: 36415; 72170; 72170-26; 80053; 85025; 94762; 97110-GP; 97161-GP; 97165-GO; 97530-GP; 97535-GP; A9270-GY; C1776; J0131; J0171; J0690; J0735; J1580; J1885; J2250; J2370; J2405; J2704; J2765; J2795; J3010; J7050; J7120

== ENCOUNTER 2018-06-17 13:27 | Outpatient (CLI) | payer MEDICARE ==
[2018-06-17] MEDS ORDERED: Bupivacaine 0.25% 10 ML SDV ONE (13:50)
[2018-06-17] MEDS ORDERED: methylPREDNISolone Acetate 40 MG/ML SDV ONE (13:50)
--- NOTE | 2018-06-17 16:42 | ANES ---
DATE OF SERVICE: 06/17/2018 INDICATIONS: Ms. Zuñiga is a 67-year-old female patient, referred to the [facility] to us by . She is here today for her 3rd epidural. She is very happy with the relief she has gotten from her other two. Please see the orders for the patient's preprocedure diagnosis as well as ICD-10 code. The risks and benefits of procedure were explained to the patient and she wished to proceed with an epidural steroid injection. TECHNIQUE: I did place the epidural to the L5-S1 using a 17-gauge Tuohy needle in loss of resistance technique. The epidural had very good feel throughout, and the epidural space was easily identified. There was negative CSF, negative blood, negative paresthesias noted. Therefore, 40 mg of Depo-Medrol and 2 mL of 0.25% Sensorcaine with 7 mL preservative-free normal saline were injected with ease. The patient tolerated procedure very nicely. She is going to return as needed for any further injections. She was discharged from the [facility] per protocol. Charly Brink CRNA /[id number]
== END 2018-06-17 14:03 | disposition home or self-care (01) ==
LOC: JP.PAIN 13:27
PROVIDERS: ATTEND Specialist
DX: M48.061 Spinal stenosis, lumbar region without neurogenic claudication (principal); M43.16 Spondylolisthesis, lumbar region
CPT/HCPCS: 62322; J1030; J3490

== ENCOUNTER 2019-02-03 10:22 | Inpatient (IN) | payer MEDICARE ==
[~2019-02-03 10:22] MED LIST: Midazolam 1 MG/ML 2 ML SDV ONE; Propofol 200 MG/20 ML SDV ONE; fentaNYL 100 MCG/2 ML SDV ONE
[2019-02-03] MEDS ORDERED: Lactated Ringers 1,000 ML IV SCH (10:30)
[2019-02-03] MEDS: Nozin Nasal Sanitizer NASBOTH SCH ×2 (11:15→21:03)
[2019-02-03] MEDS ORDERED: Povidone-Iodine 10% Soln 118.25 ML Bottle ONE (11:53)
[2019-02-03] MEDS ORDERED: Scopolamine 1.5 MG Transdermal Patch TRDERM SCH (12:00)
[2019-02-03] MEDS: ceFAZolin 2 GM in Sodium Chloride 0.9% 50 ML IV ONE ×2 (13:34→19:30)
[2019-02-03] MEDS ORDERED: Tranexamic Acid 740 MG in Sodium Chloride 0.9% 50 ML IV ONE (13:45)
[2019-02-03] MEDS ORDERED: Ondansetron 4 MG/2 ML SDV ONE (14:29)
[2019-02-03] MEDS ORDERED: Dexamethasone 4 MG/ML SDV ONE (14:29)
[2019-02-03] MEDS ORDERED: ePHEDrine 50 MG/ML SDV ONE (14:36)
[2019-02-03] MEDS ORDERED: Lactated Ringers 1,000 ML ONE (14:39)
[2019-02-03] MEDS ORDERED: Propofol 200 MG/20 ML SDV ONE ×3 (14:53→16:41)
[2019-02-03] MEDS ORDERED: Midazolam 1 MG/ML 2 ML SDV ONE ×4 (14:55→16:42)
[2019-02-03] MEDS ORDERED: fentaNYL 100 MCG/2 ML SDV ONE ×2 (16:41→17:11)
[2019-02-03] MEDS ORDERED: Acetaminophen/oxyCODONE 325-5 MG Tab PO PRN (18:43)
[2019-02-03] MEDS: Morphine 2 MG/ML Syringe IVPUSH PRN ×3 (19:03→22:26)
[2019-02-03] MEDS: Sodium Chloride 0.9% 1,000 ML IV SCH (19:04)
[2019-02-03] MEDS ORDERED: traZODone 50 MG Tab PO PRN (22:36)
[2019-02-04] MEDS ORDERED: Sodium Chloride 0.9% 50 ML ONE (00:30)
[2019-02-04] MEDS ORDERED: ceFAZolin 1 GM Vial ONE (00:30)
[2019-02-04] MEDS: ceFAZolin 1 GM in Premix Bag 1 BAG IV SCH ×3 (00:41→17:55)
[2019-02-04] MEDS: traMADol 50 MG Tab PO PRN ×2 (00:45→20:01)
[2019-02-04] MEDS: Morphine 2 MG/ML Syringe IVPUSH PRN (00:46)
[2019-02-04] MEDS: Sodium Chloride 0.9% 1,000 ML IV SCH ×3 (02:56→19:59)
[2019-02-04] MEDS ORDERED: Ondansetron 4 MG/2 ML SDV IVPUSH PRN (07:23)
[2019-02-04] MEDS: Nozin Nasal Sanitizer NASBOTH SCH ×2 (08:03→20:02)
[2019-02-04] MEDS: SCOPOLAMINE PATCH CHECK TOP SCH (08:04)
[2019-02-04] MEDS: Docusate Sodium 100 MG Cap PO SCH ×2 (08:04→20:01)
[2019-02-04] MEDS: Hydrochlorothiazide 25 MG Tab PO SCH (08:04)
[2019-02-04] MEDS: Lisinopril 10 MG Tab PO SCH (08:10)
[2019-02-04] MEDS ORDERED: Sodium Chloride 0.9% 500 ML IV ONE (10:00)
[2019-02-04] MEDS: Enoxaparin 30 MG/0.3 ML Syringe SUBCUT SCH (10:23)
[2019-02-04] MEDS: Ketorolac 30 MG/ML SDV IVPUSH SCH ×3 (10:24→21:56)
--- NOTE | 2019-02-04 17:42 | CRLCR ---
INDICATION: Postoperative evaluation of the hip. COMPARISON: 08/04/2018 CT. TECHNIQUE: Single view of the pelvis (2 images). FINDINGS: Interval placement of cerclage wiring about the proximal right femur. Right total hip arthroplasty is situated in anatomic alignment without evidence of hardware complication on this single view. Soft tissue gas about the right hip reflects recent surgery. Mild left hip joint space narrowing and osteophyte formation. No acute fracture or dislocation. IMPRESSION: Right hip arthroplasty with interval placement of cerclage wiring. Dictated by Ramo Mosley MD @ Feb 04 2019 5:38PM Signed by Dr. Ramo Mosley @ Feb 04 2019 5:40PM
[2019-02-04] MEDS: Acetaminophen 325 MG Tab PO PRN (20:01)
[2019-02-05] MEDS: ceFAZolin 1 GM in Premix Bag 1 BAG IV SCH ×4 (00:03→23:23)
[2019-02-05] MEDS: Sodium Chloride 0.9% 1,000 ML IV SCH (04:11)
[2019-02-05] MEDS: Ketorolac 30 MG/ML SDV IVPUSH SCH ×4 (05:14→21:42)
--- NOTE | 2019-02-05 05:55 | CRLCR ---
HISTORY: Possible pneumonia. COMPARISON: None available FINDINGS: A portable erect AP view of the chest was obtained at 0529 hours. The lungs are clear. No focal or diffuse infiltrates are present. The heart is normal in size. The mediastinum is normal in appearance. There is mild scoliosis of the thoracic spine convex towards the right. The osseous structures are otherwise normal in appearance. IMPRESSION: No active disease seen in the chest. Dictated by Bradford Bradley MD @ Feb 05 2019 5:52AM Signed by Dr. Bradford Bradley @ Feb 05 2019 5:52AM
[2019-02-05] MEDS: traMADol 50 MG Tab PO PRN ×2 (08:19→21:56)
[2019-02-05] MEDS: Docusate Sodium 100 MG Cap PO SCH ×2 (08:20→21:42)
[2019-02-05] MEDS: Nozin Nasal Sanitizer NASBOTH SCH ×2 (08:20→21:42)
[2019-02-05] MEDS: Enoxaparin 30 MG/0.3 ML Syringe SUBCUT SCH (08:21)
[2019-02-05] MEDS: SCOPOLAMINE PATCH CHECK TOP SCH (08:21)
[2019-02-05] MEDS: Hydrochlorothiazide 25 MG Tab PO SCH (08:21)
[2019-02-05] MEDS: Lisinopril 10 MG Tab PO SCH (11:17)
--- NOTE | 2019-02-05 11:41 | PCM.SURGPN ---
- General Info Date of Service: 02/04/19 Date of Surgery/Procedure: 02/04/19 POD#: 1 Functional Status: Reports: Pain Controlled, Tolerating Diet, Ambulating - Review of Systems General: Reports: No Symptoms HEENT: Reports: No Symptoms Pulmonary: Reports: No Symptoms Cardiovascular: Reports: No Symptoms Gastrointestinal: Reports: No Symptoms Genitourinary: Reports: No Symptoms Musculoskeletal: Reports: Leg Pain Skin: Reports: No Symptoms Neurological: Reports: No Symptoms Psychiatric: Reports: No Symptoms - Patient Data Vitals - Most Recent: Last Vital Signs Temp 36.9 C 02/05/19 11:03 Pulse 64 02/05/19 11:03 Resp 18 02/05/19 11:03 BP 160/66 H 02/05/19 11:17 Pulse Ox 98 02/05/19 11:03 Weight - Most Recent: 74.208 kg I&O - Last 24 Hours: Intake & Output 02/04/19 02/05/19 02/05/19 22:59 06:59 14:59 Intake Total 886 1843 490 Output Total 124 249 7244 Balance 436 893 -710 Med Orders - Current: Current Medications Acetaminophen (Tylenol) 650 mg PO Q4H PRN PRN Reason: Temperature Last Admin: 02/04/19 20:01 Dose: 650 mg Bandage/Support Products ( Nasal Timber Selector) 1 applic NASBOTH BID [facility] Last Admin: 02/05/19 08:20 Dose: 1 applic Docusate Sodium (Colace) 100 mg PO BID [facility] Last Admin: 02/05/19 08:20 Dose: 100 mg Enoxaparin Sodium (Lovenox) 30 mg SUBCUT DAILY [facility] Last Admin: 02/05/19 08:21 Dose: 30 mg Hydrochlorothiazide (Hydrochlorothiazide) 25 mg PO DAILY [facility] Last Admin: 02/05/19 08:21 Dose: 25 mg Sodium Chloride (Normal Saline) 1,000 mls @ 125 mls/hr IV ASDIRECTED [facility] Last Admin: 02/05/19 04:11 Dose: 125 mls/hr Cefazolin Sodium/Dextrose 1 gm (/ Premix) 50 mls @ 100 mls/hr IV Q8H [facility] Stop: 02/06/19 00:22 Last Admin: 02/05/19 08:20 Dose: 100 mls/hr Ketorolac Tromethamine (Toradol) 30 mg IVPUSH Q6H [facility] Stop: 02/09/19 04:01 Last Admin: 02/05/19 09:23 Dose: 30 mg Lisinopril (Prinivil) 30 mg PO DAILY [facility] Last Admin: 02/05/19 11:17 Dose: 30 mg Lorazepam (Ativan) 0.5 mg PO Q8H PRN PRN Reason: Anxiety Morphine Sulfate (Morphine) 2 mg IVPUSH Q1H PRN PRN Reason: Pain Last Admin: 02/04/19 00:46 Dose: 2 mg Scopolamine Patch (Check) 1 each TOP DAILY [facility] Stop: 02/05/19 12:00 Last Admin: 02/05/19 08:21 Dose: Not Given Ondansetron HCl (Zofran) 4 mg IVPUSH Q6H PRN PRN Reason: Nausea Last Admin: 02/04/19 08:10 Dose: 4 mg Oxycodone/Acetaminophen (Percocet 325-5 Mg) 1 - 2 tab PO Q4H PRN PRN Reason: Pain Tramadol HCl (Ultram) 50 mg PO Q6H PRN PRN Reason: Pain (mild 1-3) Last Admin: 02/05/19 08:19 Dose: 50 mg Trazodone HCl (Trazodone) 50 mg PO BEDTIME PRN PRN Reason: Insomnia Discontinued Medications Cefazolin Sodium (Ancef) Confirm Administered Dose 1 gm .ROUTE .STK-MED ONE Stop: 02/04/19 00:31 Last Admin: 02/04/19 00:41 Dose: Not Given Dexamethasone (Dexamethasone) Confirm Administered Dose 4 mg .ROUTE .STK-MED ONE Stop: 02/03/19 14:30 Ephedrine Sulfate (Ephedrine Sulfate) Confirm Administered Dose 50 mg .ROUTE .STK-MED ONE Stop: 02/03/19 14:37 Fentanyl (Sublimaze) Confirm Administered Dose 100 mcg .ROUTE .STK-MED ONE Stop: 02/03/19 08:56 Fentanyl (Sublimaze) Confirm Administered Dose 100 mcg .ROUTE .STK-MED ONE Stop: 02/03/19 16:42 Fentanyl (Sublimaze) Confirm Administered Dose 100 mcg .ROUTE .STK-MED ONE Stop: 02/03/19 17:12 Cefazolin Sodium 2 gm/ Sodium (Chloride) 50 mls @ 100 mls/hr IV ONETIME ONE Stop: 02/03/19 11:19 Last Admin: 02/03/19 19:30 Dose: Not Given Lactated Ringer's (Ringers, Lactated) 1,000 mls @ 100 mls/hr IV ASDIRECTED [facility] Last Admin: 02/03/19 11:15 Dose: 100 mls/hr Tranexamic Acid 740 mg/ Sodium (Chloride) 57.4 mls @ 229.6 mls/hr IV ONETIME ONE Stop: 02/03/19 13:59 Last Admin: 02/03/19 13:38 Dose: 229.6 mls/hr Lactated Ringer's (Ringers, Lactated) Confirm Administered Dose 1,000 mls @ as directed .ROUTE .STK-MED ONE Stop: 02/03/19 14:40 Sodium Chloride (Normal Saline) Confirm Administered Dose 50 mls @ as directed .ROUTE .STK-MED ONE Stop: 02/04/19 00:31 Last Admin: 02/04/19 00:41 Dose: Not Given Sodium Chloride (Normal Saline) 500 mls @ 999 mls/hr IV .BOLUS ONE Stop: 02/04/19 10:30 Last Admin: 02/04/19 10:14 Dose: 999 mls/hr Midazolam HCl (Versed 1 Mg/Ml) Confirm Administered Dose 2 mg .ROUTE .STK-MED ONE Stop: 02/03/19 08:57 Midazolam HCl (Versed 1 Mg/Ml) Confirm Administered Dose 2 mg .ROUTE .STK-MED ONE Stop: 02/03/19 14:56 Midazolam HCl (Versed 1 Mg/Ml) Confirm Administered Dose 2 mg .ROUTE .STK-MED ONE Stop: 02/03/19 15:59 Midazolam HCl (Versed 1 Mg/Ml) Confirm Administered Dose 2 mg .ROUTE .STK-MED ONE Stop: 02/03/19 16:24 Midazolam HCl (Versed 1 Mg/Ml) Confirm Administered Dose 2 mg .ROUTE .STK-MED ONE Stop: 02/03/19 16:43 Ondansetron HCl (Zofran) Confirm Administered Dose 4 mg .ROUTE .STK-MED ONE Stop: 02/03/19 14:30 Povidone Iodine (Betadine 10% Soln) Confirm Administered Dose 1 ml .ROUTE .STK- MED ONE Stop: 02/03/19 11:54 Last Admin: 02/03/19 14:27 Dose: 40 ml Propofol (Diprivan 20 Ml) Confirm Administered Dose 200 mg .ROUTE .STK-MED ONE Stop: 02/03/19 08:56 Propofol (Diprivan 20 Ml) Confirm Administered Dose 200 mg .ROUTE .STK-MED ONE Stop: 02/03/19 14:54 Propofol (Diprivan 20 Ml) Confirm Administered Dose 200 mg .ROUTE .STK-MED ONE Stop: 02/03/19 16:00 Propofol (Diprivan 20 Ml) Confirm Administered Dose 200 mg .ROUTE .STK-MED ONE Stop: 02/03/19 16:42 Scopolamine (Transderm-Scop) 1.5 mg TRDERM Q72H [facility] Stop: 02/05/19 10:00 Last Admin: 02/03/19 12:09 Dose: 1.5 mg - Exam Wound/Incisions: Dressing Dry and Intact General: Alert, Oriented HEENT: Pupils Equal Neck: Supple Cardiovascular: Regular Rate, Regular Rhythm GI/Abdominal Exam: Normal Bowel Sounds, Soft, Non-Tender, No Distention Extremities: Leg Pain, Limited Range of Motion Skin: Warm, Dry Neurological: No New Focal Deficit Psy/Mental Status: Alert, Normal Affect, Normal Mood - Problem List & Annotations (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 SNOMED Code(s): 284556758, 786173461, 715418526, 743646737 Code(s): Z96.649 - PRESENCE OF UNSPECIFIED ARTIFICIAL HIP JOINT Status: Acute Current Visit: Yes - Problem List Review Problem List Initiated/Reviewed/Updated: Yes - My Orders Last 24 Hours: Active Orders 24 hr Category Date Time Status OT Evaluation and Treatment [CONS] Routine Cons 02/04/19 13:33 Active Regular Diet [DIET] Diet 02/04/19 Dinner Active Acetaminophen [Tylenol] Med 02/04/19 19:44 Active 650 mg PO Q4H PRN Medication Orders Acetaminophen (Tylenol) 650 mg PO Q4H PRN PRN Reason: Temperature Last Admin: 02/04/19 20:01 Dose: 650 mg Bandage/Support Products ( Nasal Timber Selector) 1 applic NASBOTH BID [facility] Last Admin: 02/05/19 08:20 Dose: 1 applic Admin: 02/04/19 20:02 Dose: 1 applic Admin: 02/04/19 08:03 Dose: 1 applic Admin: 02/03/19 21:03 Dose: 1 applic Admin: 02/03/19 11:15 Dose: 1 applic Docusate Sodium (Colace) 100 mg PO BID [facility] Last Admin: 02/05/19 08:20 Dose: 100 mg Admin: 02/04/19 20:01 Dose: 100 mg Admin: 02/04/19 08:04 Dose: 100 mg Enoxaparin Sodium (Lovenox) 30 mg SUBCUT DAILY [facility] Last Admin: 02/05/19 08:21 Dose: 30 mg Admin: 02/04/19 10:23 Dose: 30 mg Hydrochlorothiazide (Hydrochlorothiazide) 25 mg PO DAILY [facility] Last Admin: 02/05/19 08:21 Dose: 25 mg Admin: 02/04/19 08:04 Dose: 25 mg Sodium Chloride (Normal Saline) 1,000 mls @ 125 mls/hr IV ASDIRECTED [facility] Last Admin: 02/05/19 04:11 Dose: 125 mls/hr Infusion: 02/05/19 03:59 Dose: 125 mls/hr Admin: 02/04/19 19:59 Dose: 125 mls/hr Infusion: 02/04/19 19:59 Dose: 125 mls/hr Admin: 02/04/19 12:11 Dose: 125 mls/hr Infusion: 02/04/19 10:56 Dose: 125 mls/hr Admin: 02/04/19 02:56 Dose: 125 mls/hr Infusion: 02/04/19 02:56 Dose: 125 mls/hr Admin: 02/03/19 19:04 Dose: 125 mls/hr Cefazolin Sodium/Dextrose 1 gm (/ Premix) 50 mls @ 100 mls/hr IV Q8H [facility] Stop: 02/06/19 00:22 Last Admin: 02/05/19 08:20 Dose: 100 mls/hr Infusion: 02/05/19 00:33 Dose: 100 mls/hr Admin: 02/05/19 00:03 Dose: 100 mls/hr Infusion: 02/04/19 18:25 Dose: 100 mls/hr Admin: 02/04/19 17:55 Dose: 100 mls/hr Infusion: 02/04/19 08:33 Dose: 100 mls/hr Admin: 02/04/19 08:03 Dose: 100 mls/hr Infusion: 02/04/19 01:11 Dose: 100 mls/hr Admin: 02/04/19 00:41 Dose: 100 mls/hr Ketorolac Tromethamine (Toradol) 30 mg IVPUSH Q6H [facility] Stop: 02/09/19 04:01 Last Admin: 02/05/19 09:23 Dose: 30 mg Admin: 02/05/19 05:14 Dose: 30 mg Admin: 02/04/19 21:56 Dose: 30 mg Admin: 02/04/19 17:55 Dose: 30 mg Admin: 02/04/19 10:24 Dose: 30 mg Lisinopril (Prinivil) 30 mg PO DAILY [facility] Last Admin: 02/05/19 11:17 Dose: 30 mg Admin: 02/04/19 08:10 Dose: 30 mg Lorazepam (Ativan) 0.5 mg PO Q8H PRN PRN Reason: Anxiety Morphine Sulfate (Morphine) 2 mg IVPUSH Q1H PRN PRN Reason: Pain Last Admin: 02/04/19 00:46 Dose: 2 mg Admin: 02/03/19 22:26 Dose: 2 mg Admin: 02/03/19 21:11 Dose: 2 mg Admin: 02/03/19 19:03 Dose: 2 mg Scopolamine Patch (Check) 1 each TOP DAILY [facility] Stop: 02/05/19 12:00 Last Admin: 02/05/19 08:21 Dose: Admin: 02/04/19 08:04 Dose: Ondansetron HCl (Zofran) 4 mg IVPUSH Q6H PRN PRN Reason: Nausea Last Admin: 02/04/19 08:10 Dose: 4 mg Oxycodone/Acetaminophen (Percocet 325-5 Mg) 1 - 2 tab PO Q4H PRN PRN Reason: Pain Tramadol HCl (Ultram) 50 mg PO Q6H PRN PRN Reason: Pain (mild 1-3) Last Admin: 02/05/19 08:19 Dose: 50 mg Admin: 02/04/19 20:01 Dose: 50 mg Admin: 02/04/19 00:45 Dose: 50 mg Trazodone HCl (Trazodone) 50 mg PO BEDTIME PRN PRN Reason: Insomnia - Assessment Assessment (Free Text/Narrative):: Mild hypotension, H/H post op ok, did well overnight, has been up walking already - Plan Plan (Free Text/Narrative):: Continue PT/OT, watch BP and I/Os, anticipate discontinuing Valderrama in am.
--- NOTE | 2019-02-05 11:44 | PCM.SURGPN ---
- General Info Date of Service: 02/05/19 Date of Surgery/Procedure: 02/03/19 POD#: 2 Functional Status: Reports: Pain Controlled, Tolerating Diet, Ambulating - Review of Systems General: Reports: Fever HEENT: Reports: No Symptoms Pulmonary: Reports: No Symptoms Cardiovascular: Reports: No Symptoms Gastrointestinal: Reports: No Symptoms Genitourinary: Reports: No Symptoms Musculoskeletal: Reports: Leg Pain Skin: Reports: No Symptoms Neurological: Reports: No Symptoms Psychiatric: Reports: No Symptoms - Patient Data Vitals - Most Recent: Last Vital Signs Temp 36.9 C 02/05/19 11:03 Pulse 64 02/05/19 11:03 Resp 18 02/05/19 11:03 BP 160/66 H 02/05/19 11:17 Pulse Ox 98 02/05/19 11:03 Weight - Most Recent: 74.208 kg I&O - Last 24 Hours: Intake & Output 02/04/19 02/05/19 02/05/19 22:59 06:59 14:59 Intake Total 886 1843 490 Output Total 380 012 8094 Balance 436 893 -710 Med Orders - Current: Current Medications Acetaminophen (Tylenol) 650 mg PO Q4H PRN PRN Reason: Temperature Last Admin: 02/04/19 20:01 Dose: 650 mg Bandage/Support Products ( Nasal Piano Teacher) 1 applic NASBOTH BID [facility] Last Admin: 02/05/19 08:20 Dose: 1 applic Docusate Sodium (Colace) 100 mg PO BID [facility] Last Admin: 02/05/19 08:20 Dose: 100 mg Enoxaparin Sodium (Lovenox) 30 mg SUBCUT DAILY [facility] Last Admin: 02/05/19 08:21 Dose: 30 mg Hydrochlorothiazide (Hydrochlorothiazide) 25 mg PO DAILY [facility] Last Admin: 02/05/19 08:21 Dose: 25 mg Sodium Chloride (Normal Saline) 1,000 mls @ 125 mls/hr IV ASDIRECTED [facility] Last Admin: 02/05/19 04:11 Dose: 125 mls/hr Cefazolin Sodium/Dextrose 1 gm (/ Premix) 50 mls @ 100 mls/hr IV Q8H [facility] Stop: 02/06/19 00:22 Last Admin: 02/05/19 08:20 Dose: 100 mls/hr Ketorolac Tromethamine (Toradol) 30 mg IVPUSH Q6H [facility] Stop: 02/09/19 04:01 Last Admin: 02/05/19 09:23 Dose: 30 mg Lisinopril (Prinivil) 30 mg PO DAILY [facility] Last Admin: 02/05/19 11:17 Dose: 30 mg Lorazepam (Ativan) 0.5 mg PO Q8H PRN PRN Reason: Anxiety Morphine Sulfate (Morphine) 2 mg IVPUSH Q1H PRN PRN Reason: Pain Last Admin: 02/04/19 00:46 Dose: 2 mg Scopolamine Patch (Check) 1 each TOP DAILY [facility] Stop: 02/05/19 12:00 Last Admin: 02/05/19 08:21 Dose: Not Given Ondansetron HCl (Zofran) 4 mg IVPUSH Q6H PRN PRN Reason: Nausea Last Admin: 02/04/19 08:10 Dose: 4 mg Oxycodone/Acetaminophen (Percocet 325-5 Mg) 1 - 2 tab PO Q4H PRN PRN Reason: Pain Tramadol HCl (Ultram) 50 mg PO Q6H PRN PRN Reason: Pain (mild 1-3) Last Admin: 02/05/19 08:19 Dose: 50 mg Trazodone HCl (Trazodone) 50 mg PO BEDTIME PRN PRN Reason: Insomnia Discontinued Medications Cefazolin Sodium (Ancef) Confirm Administered Dose 1 gm .ROUTE .STK-MED ONE Stop: 02/04/19 00:31 Last Admin: 02/04/19 00:41 Dose: Not Given Dexamethasone (Dexamethasone) Confirm Administered Dose 4 mg .ROUTE .STK-MED ONE Stop: 02/03/19 14:30 Ephedrine Sulfate (Ephedrine Sulfate) Confirm Administered Dose 50 mg .ROUTE .STK-MED ONE Stop: 02/03/19 14:37 Fentanyl (Sublimaze) Confirm Administered Dose 100 mcg .ROUTE .STK-MED ONE Stop: 02/03/19 08:56 Fentanyl (Sublimaze) Confirm Administered Dose 100 mcg .ROUTE .STK-MED ONE Stop: 02/03/19 16:42 Fentanyl (Sublimaze) Confirm Administered Dose 100 mcg .ROUTE .STK-MED ONE Stop: 02/03/19 17:12 Cefazolin Sodium 2 gm/ Sodium (Chloride) 50 mls @ 100 mls/hr IV ONETIME ONE Stop: 02/03/19 11:19 Last Admin: 02/03/19 19:30 Dose: Not Given Lactated Ringer's (Ringers, Lactated) 1,000 mls @ 100 mls/hr IV ASDIRECTED [facility] Last Admin: 02/03/19 11:15 Dose: 100 mls/hr Tranexamic Acid 740 mg/ Sodium (Chloride) 57.4 mls @ 229.6 mls/hr IV ONETIME ONE Stop: 02/03/19 13:59 Last Admin: 02/03/19 13:38 Dose: 229.6 mls/hr Lactated Ringer's (Ringers, Lactated) Confirm Administered Dose 1,000 mls @ as directed .ROUTE .STK-MED ONE Stop: 02/03/19 14:40 Sodium Chloride (Normal Saline) Confirm Administered Dose 50 mls @ as directed .ROUTE .STK-MED ONE Stop: 02/04/19 00:31 Last Admin: 02/04/19 00:41 Dose: Not Given Sodium Chloride (Normal Saline) 500 mls @ 999 mls/hr IV .BOLUS ONE Stop: 02/04/19 10:30 Last Admin: 02/04/19 10:14 Dose: 999 mls/hr Midazolam HCl (Versed 1 Mg/Ml) Confirm Administered Dose 2 mg .ROUTE .STK-MED ONE Stop: 02/03/19 08:57 Midazolam HCl (Versed 1 Mg/Ml) Confirm Administered Dose 2 mg .ROUTE .STK-MED ONE Stop: 02/03/19 14:56 Midazolam HCl (Versed 1 Mg/Ml) Confirm Administered Dose 2 mg .ROUTE .STK-MED ONE Stop: 02/03/19 15:59 Midazolam HCl (Versed 1 Mg/Ml) Confirm Administered Dose 2 mg .ROUTE .STK-MED ONE Stop: 02/03/19 16:24 Midazolam HCl (Versed 1 Mg/Ml) Confirm Administered Dose 2 mg .ROUTE .STK-MED ONE Stop: 02/03/19 16:43 Ondansetron HCl (Zofran) Confirm Administered Dose 4 mg .ROUTE .STK-MED ONE Stop: 02/03/19 14:30 Povidone Iodine (Betadine 10% Soln) Confirm Administered Dose 1 ml .ROUTE .STK- MED ONE Stop: 02/03/19 11:54 Last Admin: 02/03/19 14:27 Dose: 40 ml Propofol (Diprivan 20 Ml) Confirm Administered Dose 200 mg .ROUTE .STK-MED ONE Stop: 02/03/19 08:56 Propofol (Diprivan 20 Ml) Confirm Administered Dose 200 mg .ROUTE .STK-MED ONE Stop: 02/03/19 14:54 Propofol (Diprivan 20 Ml) Confirm Administered Dose 200 mg .ROUTE .STK-MED ONE Stop: 02/03/19 16:00 Propofol (Diprivan 20 Ml) Confirm Administered Dose 200 mg .ROUTE .STK-MED ONE Stop: 02/03/19 16:42 Scopolamine (Transderm-Scop) 1.5 mg TRDERM Q72H [facility] Stop: 02/05/19 10:00 Last Admin: 02/03/19 12:09 Dose: 1.5 mg - Exam Wound/Incisions: Healing Well, No Drainage General: Alert, Oriented HEENT: Pupils Equal Neck: Supple Lungs: Clear to Auscultation, Normal Respiratory Effort Cardiovascular: Regular Rate, Regular Rhythm GI/Abdominal Exam: Normal Bowel Sounds, Soft, Non-Tender, No Distention Extremities: Leg Pain Skin: Warm, Dry Neurological: No New Focal Deficit Psy/Mental Status: Alert, Normal Affect, Normal Mood - Problem List & Annotations (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 SNOMED Code(s): 022458106, 828696683, 100488795, 937113104 Code(s): Z96.649 - PRESENCE OF UNSPECIFIED ARTIFICIAL HIP JOINT Status: Acute Current Visit: Yes - Problem List Review Problem List Initiated/Reviewed/Updated: Yes - My Orders Last 24 Hours: Active Orders 24 hr Category Date Time Status OT Evaluation and Treatment [CONS] Routine Cons 02/04/19 13:33 Active Regular Diet [DIET] Diet 02/04/19 Dinner Active Acetaminophen [Tylenol] Med 02/04/19 19:44 Active 650 mg PO Q4H PRN Medication Orders Acetaminophen (Tylenol) 650 mg PO Q4H PRN PRN Reason: Temperature Last Admin: 02/04/19 20:01 Dose: 650 mg Bandage/Support Products ( Nasal Piano Teacher) 1 applic NASBOTH BID [facility] Last Admin: 02/05/19 08:20 Dose: 1 applic Admin: 02/04/19 20:02 Dose: 1 applic Admin: 02/04/19 08:03 Dose: 1 applic Admin: 02/03/19 21:03 Dose: 1 applic Admin: 02/03/19 11:15 Dose: 1 applic Docusate Sodium (Colace) 100 mg PO BID [facility] Last Admin: 02/05/19 08:20 Dose: 100 mg Admin: 02/04/19 20:01 Dose: 100 mg Admin: 02/04/19 08:04 Dose: 100 mg Enoxaparin Sodium (Lovenox) 30 mg SUBCUT DAILY [facility] Last Admin: 02/05/19 08:21 Dose: 30 mg Admin: 02/04/19 10:23 Dose: 30 mg Hydrochlorothiazide (Hydrochlorothiazide) 25 mg PO DAILY [facility] Last Admin: 02/05/19 08:21 Dose: 25 mg Admin: 02/04/19 08:04 Dose: 25 mg Sodium Chloride (Normal Saline) 1,000 mls @ 125 mls/hr IV ASDIRECTED [facility] Last Admin: 02/05/19 04:11 Dose: 125 mls/hr Infusion: 02/05/19 03:59 Dose: 125 mls/hr Admin: 02/04/19 19:59 Dose: 125 mls/hr Infusion: 02/04/19 19:59 Dose: 125 mls/hr Admin: 02/04/19 12:11 Dose: 125 mls/hr Infusion: 02/04/19 10:56 Dose: 125 mls/hr Admin: 02/04/19 02:56 Dose: 125 mls/hr Infusion: 02/04/19 02:56 Dose: 125 mls/hr Admin: 02/03/19 19:04 Dose: 125 mls/hr Cefazolin Sodium/Dextrose 1 gm (/ Premix) 50 mls @ 100 mls/hr IV Q8H [facility] Stop: 02/06/19 00:22 Last Admin: 02/05/19 08:20 Dose: 100 mls/hr Infusion: 02/05/19 00:33 Dose: 100 mls/hr Admin: 02/05/19 00:03 Dose: 100 mls/hr Infusion: 02/04/19 18:25 Dose: 100 mls/hr Admin: 02/04/19 17:55 Dose: 100 mls/hr Infusion: 02/04/19 08:33 Dose: 100 mls/hr Admin: 02/04/19 08:03 Dose: 100 mls/hr Infusion: 02/04/19 01:11 Dose: 100 mls/hr Admin: 02/04/19 00:41 Dose: 100 mls/hr Ketorolac Tromethamine (Toradol) 30 mg IVPUSH Q6H [facility] Stop: 02/09/19 04:01 Last Admin: 02/05/19 09:23 Dose: 30 mg Admin: 02/05/19 05:14 Dose: 30 mg Admin: 02/04/19 21:56 Dose: 30 mg Admin: 02/04/19 17:55 Dose: 30 mg Admin: 02/04/19 10:24 Dose: 30 mg Lisinopril (Prinivil) 30 mg PO DAILY [facility] Last Admin: 02/05/19 11:17 Dose: 30 mg Admin: 02/04/19 08:10 Dose: 30 mg Lorazepam (Ativan) 0.5 mg PO Q8H PRN PRN Reason: Anxiety Morphine Sulfate (Morphine) 2 mg IVPUSH Q1H PRN PRN Reason: Pain Last Admin: 02/04/19 00:46 Dose: 2 mg Admin: 02/03/19 22:26 Dose: 2 mg Admin: 02/03/19 21:11 Dose: 2 mg Admin: 02/03/19 19:03 Dose: 2 mg Scopolamine Patch (Check) 1 each TOP DAILY [facility] Stop: 02/05/19 12:00 Last Admin: 02/05/19 08:21 Dose: Admin: 02/04/19 08:04 Dose: Ondansetron HCl (Zofran) 4 mg IVPUSH Q6H PRN PRN Reason: Nausea Last Admin: 02/04/19 08:10 Dose: 4 mg Oxycodone/Acetaminophen (Percocet 325-5 Mg) 1 - 2 tab PO Q4H PRN PRN Reason: Pain Tramadol HCl (Ultram) 50 mg PO Q6H PRN PRN Reason: Pain (mild 1-3) Last Admin: 02/05/19 08:19 Dose: 50 mg Admin: 02/04/19 20:01 Dose: 50 mg Admin: 02/04/19 00:45 Dose: 50 mg Trazodone HCl (Trazodone) 50 mg PO BEDTIME PRN PRN Reason: Insomnia - Assessment Assessment (Free Text/Narrative):: Elias a temp overnight, normal this am, chest x-ray normal, will send urine culture and D/C Valderrama, continue PT/OT, making arrangements for SNF, will likely be transferred on Friday.
[2019-02-05] MEDS: Acetaminophen 325 MG Tab PO PRN (16:09)
[2019-02-06] MEDS: Ketorolac 30 MG/ML SDV IVPUSH SCH ×4 (04:19→22:02)
[2019-02-06] MEDS: Nozin Nasal Sanitizer NASBOTH SCH ×2 (09:29→22:04)
[2019-02-06] MEDS: Enoxaparin 30 MG/0.3 ML Syringe SUBCUT SCH (09:30)
[2019-02-06] MEDS: Docusate Sodium 100 MG Cap PO SCH ×2 (09:31→22:01)
[2019-02-06] MEDS: Hydrochlorothiazide 25 MG Tab PO SCH (09:32)
[2019-02-06] MEDS: Lisinopril 10 MG Tab PO SCH (09:32)
[2019-02-06] MEDS: traMADol 50 MG Tab PO PRN ×2 (10:42→22:01)
[2019-02-06] MEDS: Acetaminophen 325 MG Tab PO PRN ×2 (10:43→14:20)
[2019-02-06] MEDS ORDERED: Magnesium Hydroxide 400 MG/5 ML Susp 30 ML Cup PO PRN (13:59)
--- NOTE | 2019-02-06 20:00 | PCM.SURGPN ---
- General Info Date of Service: 02/06/19 POD#: 3 Functional Status: Reports: Pain Controlled, Tolerating Diet, Ambulating, Urinating - Review of Systems General: Reports: Fever, Other (low grade temp) HEENT: Reports: No Symptoms Pulmonary: Reports: No Symptoms Cardiovascular: Reports: No Symptoms Gastrointestinal: Reports: Constipation Genitourinary: Reports: No Symptoms Musculoskeletal: Reports: Leg Pain Skin: Reports: No Symptoms Neurological: Reports: No Symptoms Psychiatric: Reports: No Symptoms - Patient Data Vitals - Most Recent: Last Vital Signs Temp 36.8 C 02/06/19 19:00 Pulse 75 02/06/19 19:00 Resp 16 02/06/19 19:00 BP 120/72 02/06/19 19:00 Pulse Ox 93 L 02/06/19 19:00 Weight - Most Recent: 74.208 kg I&O - Last 24 Hours: Intake & Output 02/06/19 02/06/19 02/06/19 06:59 14:59 22:59 Intake Total 50 540 Output Total 200 600 Balance -150 -60 Med Orders - Current: Current Medications Acetaminophen (Tylenol) 650 mg PO Q4H PRN PRN Reason: Temperature Last Admin: 02/06/19 14:20 Dose: 650 mg Bandage/Support Products ( Nasal Maintenance Mechanic Helper) 1 applic NASBOTH BID [facility] Last Admin: 02/06/19 09:29 Dose: 1 applic Docusate Sodium (Colace) 100 mg PO BID [facility] Last Admin: 02/06/19 09:31 Dose: 100 mg Enoxaparin Sodium (Lovenox) 30 mg SUBCUT DAILY [facility] Last Admin: 02/06/19 09:30 Dose: 30 mg Hydrochlorothiazide (Hydrochlorothiazide) 25 mg PO DAILY [facility] Last Admin: 02/06/19 09:32 Dose: 25 mg Ketorolac Tromethamine (Toradol) 30 mg IVPUSH Q6H [facility] Stop: 02/09/19 04:01 Last Admin: 02/06/19 15:20 Dose: 30 mg Lisinopril (Prinivil) 30 mg PO DAILY [facility] Last Admin: 02/06/19 09:32 Dose: 30 mg Lorazepam (Ativan) 0.5 mg PO Q8H PRN PRN Reason: Anxiety Magnesium Hydroxide (Milk Of Magnesia) 30 ml PO DAILY PRN PRN Reason: Constipation Last Admin: 02/06/19 14:20 Dose: 30 ml Morphine Sulfate (Morphine) 2 mg IVPUSH Q1H PRN PRN Reason: Pain Last Admin: 02/04/19 00:46 Dose: 2 mg Ondansetron HCl (Zofran) 4 mg IVPUSH Q6H PRN PRN Reason: Nausea Last Admin: 02/04/19 08:10 Dose: 4 mg Oxycodone/Acetaminophen (Percocet 325-5 Mg) 1 - 2 tab PO Q4H PRN PRN Reason: Pain Tramadol HCl (Ultram) 50 mg PO Q6H PRN PRN Reason: Pain (mild 1-3) Last Admin: 02/06/19 10:42 Dose: 50 mg Trazodone HCl (Trazodone) 50 mg PO BEDTIME PRN PRN Reason: Insomnia Trimethoprim/Sulfamethoxazole (Septra Ds) 1 tab PO BID [facility] Discontinued Medications Cefazolin Sodium (Ancef) Confirm Administered Dose 1 gm .ROUTE .STK-MED ONE Stop: 02/04/19 00:31 Last Admin: 02/04/19 00:41 Dose: Not Given Dexamethasone (Dexamethasone) Confirm Administered Dose 4 mg .ROUTE .STK-MED ONE Stop: 02/03/19 14:30 Ephedrine Sulfate (Ephedrine Sulfate) Confirm Administered Dose 50 mg .ROUTE .STK-MED ONE Stop: 02/03/19 14:37 Fentanyl (Sublimaze) Confirm Administered Dose 100 mcg .ROUTE .STK-MED ONE Stop: 02/03/19 08:56 Fentanyl (Sublimaze) Confirm Administered Dose 100 mcg .ROUTE .STK-MED ONE Stop: 02/03/19 16:42 Fentanyl (Sublimaze) Confirm Administered Dose 100 mcg .ROUTE .STK-MED ONE Stop: 02/03/19 17:12 Cefazolin Sodium 2 gm/ Sodium (Chloride) 50 mls @ 100 mls/hr IV ONETIME ONE Stop: 02/03/19 11:19 Last Admin: 02/03/19 19:30 Dose: Not Given Lactated Ringer's (Ringers, Lactated) 1,000 mls @ 100 mls/hr IV ASDIRECTED [facility] Last Admin: 02/03/19 11:15 Dose: 100 mls/hr Tranexamic Acid 740 mg/ Sodium (Chloride) 57.4 mls @ 229.6 mls/hr IV ONETIME ONE Stop: 02/03/19 13:59 Last Admin: 02/03/19 13:38 Dose: 229.6 mls/hr Lactated Ringer's (Ringers, Lactated) Confirm Administered Dose 1,000 mls @ as directed .ROUTE .STK-MED ONE Stop: 02/03/19 14:40 Sodium Chloride (Normal Saline) 1,000 mls @ 125 mls/hr IV ASDIRECTED [facility] Last Admin: 02/05/19 04:11 Dose: 125 mls/hr Cefazolin Sodium/Dextrose 1 gm (/ Premix) 50 mls @ 100 mls/hr IV Q8H [facility] Stop: 02/06/19 00:22 Last Admin: 02/05/19 23:23 Dose: 100 mls/hr Sodium Chloride (Normal Saline) Confirm Administered Dose 50 mls @ as directed .ROUTE .STK-MED ONE Stop: 02/04/19 00:31 Last Admin: 02/04/19 00:41 Dose: Not Given Sodium Chloride (Normal Saline) 500 mls @ 999 mls/hr IV .BOLUS ONE Stop: 02/04/19 10:30 Last Admin: 02/04/19 10:14 Dose: 999 mls/hr Midazolam HCl (Versed 1 Mg/Ml) Confirm Administered Dose 2 mg .ROUTE .STK-MED ONE Stop: 02/03/19 08:57 Midazolam HCl (Versed 1 Mg/Ml) Confirm Administered Dose 2 mg .ROUTE .STK-MED ONE Stop: 02/03/19 14:56 Midazolam HCl (Versed 1 Mg/Ml) Confirm Administered Dose 2 mg .ROUTE .STK-MED ONE Stop: 02/03/19 15:59 Midazolam HCl (Versed 1 Mg/Ml) Confirm Administered Dose 2 mg .ROUTE .STK-MED ONE Stop: 02/03/19 16:24 Midazolam HCl (Versed 1 Mg/Ml) Confirm Administered Dose 2 mg .ROUTE .STK-MED ONE Stop: 02/03/19 16:43 Scopolamine Patch (Check) 1 each TOP DAILY [facility] Stop: 02/05/19 12:00 Last Admin: 02/05/19 08:21 Dose: Not Given Ondansetron HCl (Zofran) Confirm Administered Dose 4 mg .ROUTE .STK-MED ONE Stop: 02/03/19 14:30 Povidone Iodine (Betadine 10% Soln) Confirm Administered Dose 1 ml .ROUTE .STK- MED ONE Stop: 02/03/19 11:54 Last Admin: 02/03/19 14:27 Dose: 40 ml Propofol (Diprivan 20 Ml) Confirm Administered Dose 200 mg .ROUTE .STK-MED ONE Stop: 02/03/19 08:56 Propofol (Diprivan 20 Ml) Confirm Administered Dose 200 mg .ROUTE .STK-MED ONE Stop: 02/03/19 14:54 Propofol (Diprivan 20 Ml) Confirm Administered Dose 200 mg .ROUTE .STK-MED ONE Stop: 02/03/19 16:00 Propofol (Diprivan 20 Ml) Confirm Administered Dose 200 mg .ROUTE .STK-MED ONE Stop: 02/03/19 16:42 Scopolamine (Transderm-Scop) 1.5 mg TRDERM Q72H [facility] Stop: 02/05/19 10:00 Last Admin: 02/03/19 12:09 Dose: 1.5 mg - Exam Wound/Incisions: Healing Well, No Drainage General: Alert, Oriented HEENT: Pupils Equal Neck: Supple Lungs: Clear to Auscultation, Normal Respiratory Effort Cardiovascular: Regular Rate, Regular Rhythm GI/Abdominal Exam: Normal Bowel Sounds, Soft, No Distention Extremities: Other (some swelling into right knee) - Problem List & Annotations (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 SNOMED Code(s): 267076922, 484995470, 718138754, 080976403 Code(s): Z96.649 - PRESENCE OF UNSPECIFIED ARTIFICIAL HIP JOINT Status: Acute Current Visit: Yes - Problem List Review Problem List Initiated/Reviewed/Updated: Yes - My Orders Last 24 Hours: Active Orders 24 hr Category Date Time Status Magnesium Hydroxide [Milk of Magnesia] Med 02/06/19 13:59 Active 30 ml PO DAILY PRN Sulfamethoxazole/Trimethoprim [Septra DS] Med 02/06/19 21:00 Active 1 tab PO BID Medication Orders Acetaminophen (Tylenol) 650 mg PO Q4H PRN PRN Reason: Temperature Last Admin: 02/06/19 14:20 Dose: 650 mg Admin: 02/06/19 10:43 Dose: 650 mg Admin: 02/05/19 16:09 Dose: 650 mg Admin: 02/04/19 20:01 Dose: 650 mg Bandage/Support Products ( Nasal Maintenance Mechanic Helper) 1 applic NASBOTH BID [facility] Last Admin: 02/06/19 09:29 Dose: 1 applic Admin: 02/05/19 21:42 Dose: 1 applic Admin: 02/05/19 08:20 Dose: 1 applic Admin: 02/04/19 20:02 Dose: 1 applic Admin: 02/04/19 08:03 Dose: 1 applic Admin: 02/03/19 21:03 Dose: 1 applic Admin: 02/03/19 11:15 Dose: 1 applic Docusate Sodium (Colace) 100 mg PO BID [facility] Last Admin: 02/06/19 09:31 Dose: 100 mg Admin: 02/05/19 21:42 Dose: 100 mg Admin: 02/05/19 08:20 Dose: 100 mg Admin: 02/04/19 20:01 Dose: 100 mg Admin: 02/04/19 08:04 Dose: 100 mg Enoxaparin Sodium (Lovenox) 30 mg SUBCUT DAILY [facility] Last Admin: 02/06/19 09:30 Dose: 30 mg Admin: 02/05/19 08:21 Dose: 30 mg Admin: 02/04/19 10:23 Dose: 30 mg Hydrochlorothiazide (Hydrochlorothiazide) 25 mg PO DAILY [facility] Last Admin: 02/06/19 09:32 Dose: 25 mg Admin: 02/05/19 08:21 Dose: 25 mg Admin: 02/04/19 08:04 Dose: 25 mg Ketorolac Tromethamine (Toradol) 30 mg IVPUSH Q6H [facility] Stop: 02/09/19 04:01 Last Admin: 02/06/19 15:20 Dose: 30 mg Admin: 02/06/19 09:30 Dose: 30 mg Admin: 02/06/19 04:19 Dose: 30 mg Admin: 02/05/19 21:42 Dose: 30 mg Admin: 02/05/19 16:08 Dose: 30 mg Admin: 02/05/19 09:23 Dose: 30 mg Admin: 02/05/19 05:14 Dose: 30 mg Admin: 02/04/19 21:56 Dose: 30 mg Admin: 02/04/19 17:55 Dose: 30 mg Admin: 02/04/19 10:24 Dose: 30 mg Lisinopril (Prinivil) 30 mg PO DAILY [facility] Last Admin: 02/06/19 09:32 Dose: 30 mg Admin: 02/05/19 11:17 Dose: 30 mg Admin: 02/04/19 08:10 Dose: 30 mg Lorazepam (Ativan) 0.5 mg PO Q8H PRN PRN Reason: Anxiety Magnesium Hydroxide (Milk Of Magnesia) 30 ml PO DAILY PRN PRN Reason: Constipation Last Admin: 02/06/19 14:20 Dose: 30 ml Morphine Sulfate (Morphine) 2 mg IVPUSH Q1H PRN PRN Reason: Pain Last Admin: 02/04/19 00:46 Dose: 2 mg Admin: 02/03/19 22:26 Dose: 2 mg Admin: 02/03/19 21:11 Dose: 2 mg Admin: 02/03/19 19:03 Dose: 2 mg Ondansetron HCl (Zofran) 4 mg IVPUSH Q6H PRN PRN Reason: Nausea Last Admin: 02/04/19 08:10 Dose: 4 mg Oxycodone/Acetaminophen (Percocet 325-5 Mg) 1 - 2 tab PO Q4H PRN PRN Reason: Pain Tramadol HCl (Ultram) 50 mg PO Q6H PRN PRN Reason: Pain (mild 1-3) Last Admin: 02/06/19 10:42 Dose: 50 mg Admin: 02/05/19 21:56 Dose: 50 mg Admin: 02/05/19 08:19 Dose: 50 mg Admin: 02/04/19 20:01 Dose: 50 mg Admin: 02/04/19 00:45 Dose: 50 mg Trazodone HCl (Trazodone) 50 mg PO BEDTIME PRN PRN Reason: Insomnia Trimethoprim/Sulfamethoxazole (Septra Ds) 1 tab PO BID [facility] - Assessment Assessment (Free Text/Narrative):: Still with low grade temp, a few WBC and rare bacteria on UA, may be from catheterization but will treat, - Plan Plan (Free Text/Narrative):: Add Bactrim DS BID, continue PT/OT, plan transfer on Friday.
[2019-02-06] MEDS: Sulfamethoxazole/Trimethoprim 800-160 MG Tab PO SCH (22:01)
[2019-02-07] MEDS: Ketorolac 30 MG/ML SDV IVPUSH SCH ×4 (06:15→22:07)
[2019-02-07] MEDS: traMADol 50 MG Tab PO PRN ×2 (08:03→22:00)
[2019-02-07] MEDS: Nozin Nasal Sanitizer NASBOTH SCH ×2 (08:04→22:04)
[2019-02-07] MEDS: Enoxaparin 30 MG/0.3 ML Syringe SUBCUT SCH (08:05)
[2019-02-07] MEDS: Lisinopril 10 MG Tab PO SCH (08:05)
[2019-02-07] MEDS: Sulfamethoxazole/Trimethoprim 800-160 MG Tab PO SCH ×2 (08:05→22:05)
[2019-02-07] MEDS: Hydrochlorothiazide 25 MG Tab PO SCH (08:05)
[2019-02-07] MEDS: Docusate Sodium 100 MG Cap PO SCH ×2 (08:05→22:04)
[2019-02-07] MEDS ORDERED: Dimethicone 20%/Zinc Oxide 25% 56 GM Spray Bottle TOP PRN (13:42)
--- NOTE | 2019-02-07 15:32 | PCM.SURGPN ---
- General Info Date of Service: 02/07/19 Date of Surgery/Procedure: 02/03/19 POD#: 4 Functional Status: Reports: Pain Controlled, Tolerating Diet, Ambulating, Urinating - Review of Systems General: Reports: No Symptoms HEENT: Reports: No Symptoms Pulmonary: Reports: No Symptoms Cardiovascular: Reports: No Symptoms Gastrointestinal: Reports: No Symptoms Genitourinary: Reports: No Symptoms Musculoskeletal: Reports: Joint Swelling, Other (right knee pain and swelling limiting ambulation) Skin: Reports: Rash, Other Neurological: Reports: No Symptoms Psychiatric: Reports: No Symptoms - Patient Data Vitals - Most Recent: Last Vital Signs Temp 37.5 C 02/07/19 10:50 Pulse 70 02/07/19 10:50 Resp 18 02/07/19 10:50 BP 122/60 02/07/19 10:50 Pulse Ox 97 02/07/19 10:50 Weight - Most Recent: 74.208 kg I&O - Last 24 Hours: Intake & Output 02/07/19 02/07/19 02/07/19 06:59 14:59 22:59 Intake Total 360 Output Total 200 500 Balance -200 -140 Juanjo Results Last 24 Hrs: Microbiology 02/05/19 15:59 Urine Culture - Preliminary Urine, Catheterized MIXED ANA DAY 1 Med Orders - Current: Current Medications Acetaminophen (Tylenol) 650 mg PO Q4H PRN PRN Reason: Temperature Last Admin: 02/06/19 14:20 Dose: 650 mg Bandage/Support Products ( Nasal Chemical Production Engineer) 1 applic NASBOTH BID [facility] Last Admin: 02/07/19 08:04 Dose: 1 applic Dimethicone/Zinc Oxide (Rash Relief-Zinc Oxide [place]) 0 gm TOP ASDIRECTED PRN PRN Reason: Rash Last Admin: 02/07/19 14:05 Dose: 1 applic Docusate Sodium (Colace) 100 mg PO BID [facility] Last Admin: 02/07/19 08:05 Dose: 100 mg Enoxaparin Sodium (Lovenox) 30 mg SUBCUT DAILY [facility] Last Admin: 02/07/19 08:05 Dose: 30 mg Hydrochlorothiazide (Hydrochlorothiazide) 25 mg PO DAILY [facility] Last Admin: 02/07/19 08:05 Dose: 25 mg Ketorolac Tromethamine (Toradol) 30 mg IVPUSH Q6H [facility] Stop: 02/09/19 04:01 Last Admin: 02/07/19 10:33 Dose: 30 mg Lisinopril (Prinivil) 30 mg PO DAILY [facility] Last Admin: 02/07/19 08:05 Dose: 30 mg Lorazepam (Ativan) 0.5 mg PO Q8H PRN PRN Reason: Anxiety Magnesium Hydroxide (Milk Of Magnesia) 30 ml PO DAILY PRN PRN Reason: Constipation Last Admin: 02/06/19 14:20 Dose: 30 ml Morphine Sulfate (Morphine) 2 mg IVPUSH Q1H PRN PRN Reason: Pain Last Admin: 02/04/19 00:46 Dose: 2 mg Ondansetron HCl (Zofran) 4 mg IVPUSH Q6H PRN PRN Reason: Nausea Last Admin: 02/04/19 08:10 Dose: 4 mg Oxycodone/Acetaminophen (Percocet 325-5 Mg) 1 - 2 tab PO Q4H PRN PRN Reason: Pain Tramadol HCl (Ultram) 50 mg PO Q6H PRN PRN Reason: Pain (mild 1-3) Last Admin: 02/07/19 08:03 Dose: 50 mg Trazodone HCl (Trazodone) 50 mg PO BEDTIME PRN PRN Reason: Insomnia Trimethoprim/Sulfamethoxazole (Septra Ds) 1 tab PO BID [facility] Last Admin: 02/07/19 08:05 Dose: 1 tab Discontinued Medications Cefazolin Sodium (Ancef) Confirm Administered Dose 1 gm .ROUTE .STK-MED ONE Stop: 02/04/19 00:31 Last Admin: 02/04/19 00:41 Dose: Not Given Dexamethasone (Dexamethasone) Confirm Administered Dose 4 mg .ROUTE .STK-MED ONE Stop: 02/03/19 14:30 Ephedrine Sulfate (Ephedrine Sulfate) Confirm Administered Dose 50 mg .ROUTE .STK-MED ONE Stop: 02/03/19 14:37 Fentanyl (Sublimaze) Confirm Administered Dose 100 mcg .ROUTE .STK-MED ONE Stop: 02/03/19 08:56 Fentanyl (Sublimaze) Confirm Administered Dose 100 mcg .ROUTE .STK-MED ONE Stop: 02/03/19 16:42 Fentanyl (Sublimaze) Confirm Administered Dose 100 mcg .ROUTE .STK-MED ONE Stop: 02/03/19 17:12 Cefazolin Sodium 2 gm/ Sodium (Chloride) 50 mls @ 100 mls/hr IV ONETIME ONE Stop: 02/03/19 11:19 Last Admin: 02/03/19 19:30 Dose: Not Given Lactated Ringer's (Ringers, Lactated) 1,000 mls @ 100 mls/hr IV ASDIRECTED [facility] Last Admin: 02/03/19 11:15 Dose: 100 mls/hr Tranexamic Acid 740 mg/ Sodium (Chloride) 57.4 mls @ 229.6 mls/hr IV ONETIME ONE Stop: 02/03/19 13:59 Last Admin: 02/03/19 13:38 Dose: 229.6 mls/hr Lactated Ringer's (Ringers, Lactated) Confirm Administered Dose 1,000 mls @ as directed .ROUTE .STK-MED ONE Stop: 02/03/19 14:40 Sodium Chloride (Normal Saline) 1,000 mls @ 125 mls/hr IV ASDIRECTED [facility] Last Admin: 02/05/19 04:11 Dose: 125 mls/hr Cefazolin Sodium/Dextrose 1 gm (/ Premix) 50 mls @ 100 mls/hr IV Q8H [facility] Stop: 02/06/19 00:22 Last Admin: 02/05/19 23:23 Dose: 100 mls/hr Sodium Chloride (Normal Saline) Confirm Administered Dose 50 mls @ as directed .ROUTE .STK-MED ONE Stop: 02/04/19 00:31 Last Admin: 02/04/19 00:41 Dose: Not Given Sodium Chloride (Normal Saline) 500 mls @ 999 mls/hr IV .BOLUS ONE Stop: 02/04/19 10:30 Last Admin: 02/04/19 10:14 Dose: 999 mls/hr Midazolam HCl (Versed 1 Mg/Ml) Confirm Administered Dose 2 mg .ROUTE .STK-MED ONE Stop: 02/03/19 08:57 Midazolam HCl (Versed 1 Mg/Ml) Confirm Administered Dose 2 mg .ROUTE .STK-MED ONE Stop: 02/03/19 14:56 Midazolam HCl (Versed 1 Mg/Ml) Confirm Administered Dose 2 mg .ROUTE .STK-MED ONE Stop: 02/03/19 15:59 Midazolam HCl (Versed 1 Mg/Ml) Confirm Administered Dose 2 mg .ROUTE .STK-MED ONE Stop: 02/03/19 16:24 Midazolam HCl (Versed 1 Mg/Ml) Confirm Administered Dose 2 mg .ROUTE .STK-MED ONE Stop: 02/03/19 16:43 Scopolamine Patch (Check) 1 each TOP DAILY [facility] Stop: 02/05/19 12:00 Last Admin: 02/05/19 08:21 Dose: Not Given Ondansetron HCl (Zofran) Confirm Administered Dose 4 mg .ROUTE .STK-MED ONE Stop: 02/03/19 14:30 Povidone Iodine (Betadine 10% Soln) Confirm Administered Dose 1 ml .ROUTE .STK- MED ONE Stop: 02/03/19 11:54 Last Admin: 02/03/19 14:27 Dose: 40 ml Propofol (Diprivan 20 Ml) Confirm Administered Dose 200 mg .ROUTE .STK-MED ONE Stop: 02/03/19 08:56 Propofol (Diprivan 20 Ml) Confirm Administered Dose 200 mg .ROUTE .STK-MED ONE Stop: 02/03/19 14:54 Propofol (Diprivan 20 Ml) Confirm Administered Dose 200 mg .ROUTE .STK-MED ONE Stop: 02/03/19 16:00 Propofol (Diprivan 20 Ml) Confirm Administered Dose 200 mg .ROUTE .STK-MED ONE Stop: 02/03/19 16:42 Scopolamine (Transderm-Scop) 1.5 mg TRDERM Q72H [facility] Stop: 02/05/19 10:00 Last Admin: 02/03/19 12:09 Dose: 1.5 mg - Exam Wound/Incisions: Healing Well, No Drainage General: Alert, Oriented HEENT: Pupils Equal Neck: Supple Lungs: Clear to Auscultation, Normal Respiratory Effort Cardiovascular: Regular Rate, Regular Rhythm GI/Abdominal Exam: Normal Bowel Sounds, Soft, Non-Tender, No Distention Extremities: Joint Swelling, Other (moderated effusion present right knee) Skin: Warm, Dry Neurological: No New Focal Deficit Psy/Mental Status: Alert, Normal Affect, Normal Mood - Problem List & Annotations (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 SNOMED Code(s): 667946646, 231966733, 022138046, 655407737 Code(s): Z96.649 - PRESENCE OF UNSPECIFIED ARTIFICIAL HIP JOINT Status: Acute Current Visit: Yes (2) Knee pain, right SNOMED Code(s): 63057374 Code(s): M25.561 - PAIN IN RIGHT KNEE Status: Acute Current Visit: Yes Qualifiers: Chronicity: acute Qualified Code(s): M25.561 - Pain in right knee - Problem List Review Problem List Initiated/Reviewed/Updated: Yes - My Orders Last 24 Hours: Active Orders 24 hr Category Date Time Status Dimethicone/Zinc Oxide [Rash Relief-Zinc Oxide [place]] Med 02/07/19 13:42 Active 0 gm TOP ASDIRECTED PRN Sulfamethoxazole/Trimethoprim [Septra DS] Med 02/06/19 21:00 Active 1 tab PO BID Medication Orders Acetaminophen (Tylenol) 650 mg PO Q4H PRN PRN Reason: Temperature Last Admin: 02/06/19 14:20 Dose: 650 mg Admin: 02/06/19 10:43 Dose: 650 mg Admin: 02/05/19 16:09 Dose: 650 mg Admin: 02/04/19 20:01 Dose: 650 mg Bandage/Support Products ( Nasal Chemical Production Engineer) 1 applic NASBOTH BID [facility] Last Admin: 02/07/19 08:04 Dose: 1 applic Admin: 02/06/19 22:04 Dose: 1 applic Admin: 02/06/19 09:29 Dose: 1 applic Admin: 02/05/19 21:42 Dose: 1 applic Admin: 02/05/19 08:20 Dose: 1 applic Admin: 02/04/19 20:02 Dose: 1 applic Admin: 02/04/19 08:03 Dose: 1 applic Admin: 02/03/19 21:03 Dose: 1 applic Admin: 02/03/19 11:15 Dose: 1 applic Dimethicone/Zinc Oxide (Rash Relief-Zinc Oxide [place]) 0 gm TOP ASDIRECTED PRN PRN Reason: Rash Last Admin: 02/07/19 14:05 Dose: 1 applic Docusate Sodium (Colace) 100 mg PO BID [facility] Last Admin: 02/07/19 08:05 Dose: 100 mg Admin: 02/06/19 22:01 Dose: 100 mg Admin: 02/06/19 09:31 Dose: 100 mg Admin: 02/05/19 21:42 Dose: 100 mg Admin: 02/05/19 08:20 Dose: 100 mg Admin: 02/04/19 20:01 Dose: 100 mg Admin: 02/04/19 08:04 Dose: 100 mg Enoxaparin Sodium (Lovenox) 30 mg SUBCUT DAILY [facility] Last Admin: 02/07/19 08:05 Dose: 30 mg Admin: 02/06/19 09:30 Dose: 30 mg Admin: 02/05/19 08:21 Dose: 30 mg Admin: 02/04/19 10:23 Dose: 30 mg Hydrochlorothiazide (Hydrochlorothiazide) 25 mg PO DAILY [facility] Last Admin: 02/07/19 08:05 Dose: 25 mg Admin: 02/06/19 09:32 Dose: 25 mg Admin: 02/05/19 08:21 Dose: 25 mg Admin: 02/04/19 08:04 Dose: 25 mg Ketorolac Tromethamine (Toradol) 30 mg IVPUSH Q6H [facility] Stop: 02/09/19 04:01 Last Admin: 02/07/19 10:33 Dose: 30 mg Admin: 02/07/19 06:15 Dose: 30 mg Admin: 02/06/19 22:02 Dose: 30 mg Admin: 02/06/19 15:20 Dose: 30 mg Admin: 02/06/19 09:30 Dose: 30 mg Admin: 02/06/19 04:19 Dose: 30 mg Admin: 02/05/19 21:42 Dose: 30 mg Admin: 02/05/19 16:08 Dose: 30 mg Admin: 02/05/19 09:23 Dose: 30 mg Admin: 02/05/19 05:14 Dose: 30 mg Admin: 02/04/19 21:56 Dose: 30 mg Admin: 02/04/19 17:55 Dose: 30 mg Admin: 02/04/19 10:24 Dose: 30 mg Lisinopril (Prinivil) 30 mg PO DAILY [facility] Last Admin: 02/07/19 08:05 Dose: 30 mg Admin: 02/06/19 09:32 Dose: 30 mg Admin: 02/05/19 11:17 Dose: 30 mg Admin: 02/04/19 08:10 Dose: 30 mg Lorazepam (Ativan) 0.5 mg PO Q8H PRN PRN Reason: Anxiety Magnesium Hydroxide (Milk Of Magnesia) 30 ml PO DAILY PRN PRN Reason: Constipation Last Admin: 02/06/19 14:20 Dose: 30 ml Morphine Sulfate (Morphine) 2 mg IVPUSH Q1H PRN PRN Reason: Pain Last Admin: 02/04/19 00:46 Dose: 2 mg Admin: 02/03/19 22:26 Dose: 2 mg Admin: 02/03/19 21:11 Dose: 2 mg Admin: 02/03/19 19:03 Dose: 2 mg Ondansetron HCl (Zofran) 4 mg IVPUSH Q6H PRN PRN Reason: Nausea Last Admin: 02/04/19 08:10 Dose: 4 mg Oxycodone/Acetaminophen (Percocet 325-5 Mg) 1 - 2 tab PO Q4H PRN PRN Reason: Pain Tramadol HCl (Ultram) 50 mg PO Q6H PRN PRN Reason: Pain (mild 1-3) Last Admin: 02/07/19 08:03 Dose: 50 mg Admin: 02/06/19 22:01 Dose: 50 mg Admin: 02/06/19 10:42 Dose: 50 mg Admin: 02/05/19 21:56 Dose: 50 mg Admin: 02/05/19 08:19 Dose: 50 mg Admin: 02/04/19 20:01 Dose: 50 mg Admin: 02/04/19 00:45 Dose: 50 mg Trazodone HCl (Trazodone) 50 mg PO BEDTIME PRN PRN Reason: Insomnia Trimethoprim/Sulfamethoxazole (Septra Ds) 1 tab PO BID [facility] Last Admin: 02/07/19 08:05 Dose: 1 tab Admin: 02/06/19 22:01 Dose: 1 tab - Assessment Assessment (Free Text/Narrative):: Doing well other than right knee pain and swelling, does have an effusion, she feels the knee is limiting her walking just as much as the hip, also has rash on buttocks presumably from mesh undergarment. - Plan Plan (Free Text/Narrative):: right knee injected with cortisone and bupivicaine today, continue PT/OT, await insurance authorization for transfer tomorrow?
[2019-02-08] MEDS: Ketorolac 30 MG/ML SDV IVPUSH SCH ×2 (03:59→14:19)
[2019-02-08] MEDS: Acetaminophen 325 MG Tab PO PRN (07:54)
[2019-02-08] MEDS: Nozin Nasal Sanitizer NASBOTH SCH ×2 (09:33→20:45)
[2019-02-08] MEDS: Sulfamethoxazole/Trimethoprim 800-160 MG Tab PO SCH ×2 (09:34→20:46)
[2019-02-08] MEDS: Hydrochlorothiazide 25 MG Tab PO SCH (09:34)
[2019-02-08] MEDS: Lisinopril 10 MG Tab PO SCH (09:34)
[2019-02-08] MEDS: Docusate Sodium 100 MG Cap PO SCH ×2 (09:34→20:46)
[2019-02-08] MEDS: Enoxaparin 30 MG/0.3 ML Syringe SUBCUT SCH (09:34)
[2019-02-08] MEDS: traMADol 50 MG Tab PO PRN ×2 (14:32→20:45)
[2019-02-08] MEDS ORDERED: Ondansetron 4 MG Tab.DIS PO PRN (15:45)
[2019-02-08] MEDS: LORazepam 1 MG Tab PO PRN (21:06)
--- NOTE | 2019-02-09 06:21 | PCM.SURGPN ---
- General Info Date of Service: 02/08/19 Date of Surgery/Procedure: 02/03/19 POD#: 5 Functional Status: Reports: Pain Controlled, Tolerating Diet, Ambulating, Urinating - Review of Systems General: Reports: No Symptoms HEENT: Reports: No Symptoms Pulmonary: Reports: No Symptoms Cardiovascular: Reports: No Symptoms Gastrointestinal: Reports: No Symptoms Genitourinary: Reports: No Symptoms Musculoskeletal: Reports: Leg Pain, Joint Swelling Skin: Reports: No Symptoms Neurological: Reports: No Symptoms Psychiatric: Reports: No Symptoms - Patient Data Vitals - Most Recent: Last Vital Signs Temp 37.0 C 02/09/19 03:45 Pulse 76 02/09/19 03:45 Resp 14 02/09/19 03:45 BP 164/79 H 02/09/19 03:45 Pulse Ox 99 02/09/19 03:45 Weight - Most Recent: 74.208 kg I&O - Last 24 Hours: Intake & Output 02/08/19 02/08/19 02/09/19 14:59 22:59 06:59 Intake Total 120 Output Total 200 400 Balance -80 -400 Juanjo Results Last 24 Hrs: Microbiology 02/05/19 15:59 Urine Culture - Final Urine, Catheterized MIXED ANA DAY 2 Med Orders - Current: Current Medications Acetaminophen (Tylenol) 650 mg PO Q4H PRN PRN Reason: Temperature Last Admin: 02/08/19 07:54 Dose: 650 mg Bandage/Support Products ( Nasal Forgesmith) 1 applic NASBOTH BID [facility] Last Admin: 02/08/19 20:45 Dose: 1 applic Dimethicone/Zinc Oxide (Rash Relief-Zinc Oxide Jameson) 0 gm TOP ASDIRECTED PRN PRN Reason: Rash Last Admin: 02/07/19 14:05 Dose: 1 applic Docusate Sodium (Colace) 100 mg PO BID [facility] Last Admin: 02/08/19 20:46 Dose: 100 mg Enoxaparin Sodium (Lovenox) 30 mg SUBCUT DAILY [facility] Last Admin: 02/08/19 09:34 Dose: 30 mg Hydrochlorothiazide (Hydrochlorothiazide) 25 mg PO DAILY [facility] Last Admin: 02/08/19 09:34 Dose: 25 mg Lisinopril (Prinivil) 30 mg PO DAILY [facility] Last Admin: 02/08/19 09:34 Dose: 30 mg Lorazepam (Ativan) 0.5 mg PO Q8H PRN PRN Reason: Anxiety Last Admin: 02/08/19 21:06 Dose: 0.5 mg Magnesium Hydroxide (Milk Of Magnesia) 30 ml PO DAILY PRN PRN Reason: Constipation Last Admin: 02/06/19 14:20 Dose: 30 ml Morphine Sulfate (Morphine) 2 mg IVPUSH Q1H PRN PRN Reason: Pain Last Admin: 02/04/19 00:46 Dose: 2 mg Ondansetron HCl (Zofran) 4 mg IVPUSH Q6H PRN PRN Reason: Nausea Last Admin: 02/04/19 08:10 Dose: 4 mg Ondansetron HCl (Zofran Odt) 4 mg PO Q4H PRN PRN Reason: Nausea/Vomiting Oxycodone/Acetaminophen (Percocet 325-5 Mg) 1 - 2 tab PO Q4H PRN PRN Reason: Pain Tramadol HCl (Ultram) 50 mg PO Q6H PRN PRN Reason: Pain (mild 1-3) Last Admin: 02/08/19 20:45 Dose: 50 mg Trazodone HCl (Trazodone) 50 mg PO BEDTIME PRN PRN Reason: Insomnia Trimethoprim/Sulfamethoxazole (Septra Ds) 1 tab PO BID PARAS Last Admin: 02/08/19 20:46 Dose: 1 tab Discontinued Medications Cefazolin Sodium (Ancef) Confirm Administered Dose 1 gm .ROUTE .STK-MED ONE Stop: 02/04/19 00:31 Last Admin: 02/04/19 00:41 Dose: Not Given Dexamethasone (Dexamethasone) Confirm Administered Dose 4 mg .ROUTE .STK-MED ONE Stop: 02/03/19 14:30 Ephedrine Sulfate (Ephedrine Sulfate) Confirm Administered Dose 50 mg .ROUTE .STK-MED ONE Stop: 02/03/19 14:37 Fentanyl (Sublimaze) Confirm Administered Dose 100 mcg .ROUTE .STK-MED ONE Stop: 02/03/19 08:56 Fentanyl (Sublimaze) Confirm Administered Dose 100 mcg .ROUTE .STK-MED ONE Stop: 02/03/19 16:42 Fentanyl (Sublimaze) Confirm Administered Dose 100 mcg .ROUTE .STK-MED ONE Stop: 02/03/19 17:12 Cefazolin Sodium 2 gm/ Sodium (Chloride) 50 mls @ 100 mls/hr IV ONETIME ONE Stop: 02/03/19 11:19 Last Admin: 02/03/19 19:30 Dose: Not Given Lactated Ringer's (Ringers, Lactated) 1,000 mls @ 100 mls/hr IV ASDIRECTED [facility] Last Admin: 02/03/19 11:15 Dose: 100 mls/hr Tranexamic Acid 740 mg/ Sodium (Chloride) 57.4 mls @ 229.6 mls/hr IV ONETIME ONE Stop: 02/03/19 13:59 Last Admin: 02/03/19 13:38 Dose: 229.6 mls/hr Lactated Ringer's (Ringers, Lactated) Confirm Administered Dose 1,000 mls @ as directed .ROUTE .STK-MED ONE Stop: 02/03/19 14:40 Sodium Chloride (Normal Saline) 1,000 mls @ 125 mls/hr IV ASDIRECTED [facility] Last Admin: 02/05/19 04:11 Dose: 125 mls/hr Cefazolin Sodium/Dextrose 1 gm (/ Premix) 50 mls @ 100 mls/hr IV Q8H [facility] Stop: 02/06/19 00:22 Last Admin: 02/05/19 23:23 Dose: 100 mls/hr Sodium Chloride (Normal Saline) Confirm Administered Dose 50 mls @ as directed .ROUTE .STK-MED ONE Stop: 02/04/19 00:31 Last Admin: 02/04/19 00:41 Dose: Not Given Sodium Chloride (Normal Saline) 500 mls @ 999 mls/hr IV .BOLUS ONE Stop: 02/04/19 10:30 Last Admin: 02/04/19 10:14 Dose: 999 mls/hr Ketorolac Tromethamine (Toradol) 30 mg IVPUSH Q6H [facility] Stop: 02/09/19 04:01 Last Admin: 02/08/19 14:19 Dose: Not Given Midazolam HCl (Versed 1 Mg/Ml) Confirm Administered Dose 2 mg .ROUTE .STK-MED ONE Stop: 02/03/19 08:57 Midazolam HCl (Versed 1 Mg/Ml) Confirm Administered Dose 2 mg .ROUTE .STK-MED ONE Stop: 02/03/19 14:56 Midazolam HCl (Versed 1 Mg/Ml) Confirm Administered Dose 2 mg .ROUTE .STK-MED ONE Stop: 02/03/19 15:59 Midazolam HCl (Versed 1 Mg/Ml) Confirm Administered Dose 2 mg .ROUTE .STK-MED ONE Stop: 02/03/19 16:24 Midazolam HCl (Versed 1 Mg/Ml) Confirm Administered Dose 2 mg .ROUTE .STK-MED ONE Stop: 02/03/19 16:43 Scopolamine Patch (Check) 1 each TOP DAILY PARAS Stop: 02/05/19 12:00 Last Admin: 02/05/19 08:21 Dose: Not Given Ondansetron HCl (Zofran) Confirm Administered Dose 4 mg .ROUTE .STK-MED ONE Stop: 02/03/19 14:30 Povidone Iodine (Betadine 10% Soln) Confirm Administered Dose 1 ml .ROUTE .STK- MED ONE Stop: 02/03/19 11:54 Last Admin: 02/03/19 14:27 Dose: 40 ml Propofol (Diprivan 20 Ml) Confirm Administered Dose 200 mg .ROUTE .STK-MED ONE Stop: 02/03/19 08:56 Propofol (Diprivan 20 Ml) Confirm Administered Dose 200 mg .ROUTE .STK-MED ONE Stop: 02/03/19 14:54 Propofol (Diprivan 20 Ml) Confirm Administered Dose 200 mg .ROUTE .STK-MED ONE Stop: 02/03/19 16:00 Propofol (Diprivan 20 Ml) Confirm Administered Dose 200 mg .ROUTE .STK-MED ONE Stop: 02/03/19 16:42 Scopolamine (Transderm-Scop) 1.5 mg TRDERM Q72H [facility] Stop: 02/05/19 10:00 Last Admin: 02/03/19 12:09 Dose: 1.5 mg - Exam Wound/Incisions: Healing Well General: Alert, Oriented HEENT: Pupils Equal Neck: Supple Lungs: Clear to Auscultation, Normal Respiratory Effort Cardiovascular: Regular Rate, Regular Rhythm GI/Abdominal Exam: Normal Bowel Sounds, Soft, Non-Tender, No Distention Extremities: Joint Swelling, Limited Range of Motion, Other (right knee with moderate effusion) Skin: Warm, Dry Neurological: No New Focal Deficit Psy/Mental Status: Alert, Normal Affect, Normal Mood - Problem List & Annotations (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 SNOMED Code(s): 612095692, 961859163, 256288034, 366140356 Code(s): Z96.649 - PRESENCE OF UNSPECIFIED ARTIFICIAL HIP JOINT Status: Acute Current Visit: Yes (2) Knee pain, right SNOMED Code(s): 89891843 Code(s): M25.561 - PAIN IN RIGHT KNEE Status: Acute Current Visit: Yes Qualifiers: Chronicity: acute Qualified Code(s): M25.561 - Pain in right knee - Problem List Review Problem List Initiated/Reviewed/Updated: Yes - My Orders Last 24 Hours: Active Orders 24 hr Category Date Time Status Ondansetron [Zofran ODT] Med 02/08/19 15:45 Active 4 mg PO Q4H PRN Medication Orders Acetaminophen (Tylenol) 650 mg PO Q4H PRN PRN Reason: Temperature Last Admin: 02/08/19 07:54 Dose: 650 mg Admin: 02/06/19 14:20 Dose: 650 mg Admin: 02/06/19 10:43 Dose: 650 mg Admin: 02/05/19 16:09 Dose: 650 mg Admin: 02/04/19 20:01 Dose: 650 mg Bandage/Support Products ( Nasal Forgesmith) 1 applic NASBOTH BID [facility] Last Admin: 02/08/19 20:45 Dose: 1 applic Admin: 02/08/19 09:33 Dose: 1 applic Admin: 02/07/19 22:04 Dose: 1 applic Admin: 02/07/19 08:04 Dose: 1 applic Admin: 02/06/19 22:04 Dose: 1 applic Admin: 02/06/19 09:29 Dose: 1 applic Admin: 02/05/19 21:42 Dose: 1 applic Admin: 02/05/19 08:20 Dose: 1 applic Admin: 02/04/19 20:02 Dose: 1 applic Admin: 02/04/19 08:03 Dose: 1 applic Admin: 02/03/19 21:03 Dose: 1 applic Admin: 02/03/19 11:15 Dose: 1 applic Dimethicone/Zinc Oxide (Rash Relief-Zinc Oxide Jameson) 0 gm TOP ASDIRECTED PRN PRN Reason: Rash Last Admin: 02/07/19 14:05 Dose: 1 applic Docusate Sodium (Colace) 100 mg PO BID PAR[facility] Last Admin: 02/08/19 20:46 Dose: 100 mg Admin: 02/08/19 09:34 Dose: 100 mg Admin: 02/07/19 22:04 Dose: 100 mg Admin: 02/07/19 08:05 Dose: 100 mg Admin: 02/06/19 22:01 Dose: 100 mg Admin: 02/06/19 09:31 Dose: 100 mg Admin: 02/05/19 21:42 Dose: 100 mg Admin: 02/05/19 08:20 Dose: 100 mg Admin: 02/04/19 20:01 Dose: 100 mg Admin: 02/04/19 08:04 Dose: 100 mg Enoxaparin Sodium (Lovenox) 30 mg SUBCUT DAILY [facility] Last Admin: 02/08/19 09:34 Dose: 30 mg Admin: 02/07/19 08:05 Dose: 30 mg Admin: 02/06/19 09:30 Dose: 30 mg Admin: 02/05/19 08:21 Dose: 30 mg Admin: 02/04/19 10:23 Dose: 30 mg Hydrochlorothiazide (Hydrochlorothiazide) 25 mg PO DAILY [facility] Last Admin: 02/08/19 09:34 Dose: 25 mg Admin: 02/07/19 08:05 Dose: 25 mg Admin: 02/06/19 09:32 Dose: 25 mg Admin: 02/05/19 08:21 Dose: 25 mg Admin: 02/04/19 08:04 Dose: 25 mg Lisinopril (Prinivil) 30 mg PO DAILY [facility] Last Admin: 02/08/19 09:34 Dose: 30 mg Admin: 02/07/19 08:05 Dose: 30 mg Admin: 02/06/19 09:32 Dose: 30 mg Admin: 02/05/19 11:17 Dose: 30 mg Admin: 02/04/19 08:10 Dose: 30 mg Lorazepam (Ativan) 0.5 mg PO Q8H PRN PRN Reason: Anxiety Last Admin: 02/08/19 21:06 Dose: 0.5 mg Magnesium Hydroxide (Milk Of Magnesia) 30 ml PO DAILY PRN PRN Reason: Constipation Last Admin: 02/06/19 14:20 Dose: 30 ml Morphine Sulfate (Morphine) 2 mg IVPUSH Q1H PRN PRN Reason: Pain Last Admin: 02/04/19 00:46 Dose: 2 mg Admin: 02/03/19 22:26 Dose: 2 mg Admin: 02/03/19 21:11 Dose: 2 mg Admin: 02/03/19 19:03 Dose: 2 mg Ondansetron HCl (Zofran) 4 mg IVPUSH Q6H PRN PRN Reason: Nausea Last Admin: 02/04/19 08:10 Dose: 4 mg Ondansetron HCl (Zofran Odt) 4 mg PO Q4H PRN PRN Reason: Nausea/Vomiting Oxycodone/Acetaminophen (Percocet 325-5 Mg) 1 - 2 tab PO Q4H PRN PRN Reason: Pain Tramadol HCl (Ultram) 50 mg PO Q6H PRN PRN Reason: Pain (mild 1-3) Last Admin: 02/08/19 20:45 Dose: 50 mg Admin: 02/08/19 14:32 Dose: 50 mg Admin: 02/07/19 08:03 Dose: 50 mg Admin: 02/06/19 22:01 Dose: 50 mg Admin: 02/06/19 10:42 Dose: 50 mg Admin: 02/05/19 21:56 Dose: 50 mg Admin: 02/05/19 08:19 Dose: 50 mg Admin: 02/04/19 20:01 Dose: 50 mg Admin: 02/04/19 00:45 Dose: 50 mg Trazodone HCl (Trazodone) 50 mg PO BEDTIME PRN PRN Reason: Insomnia Trimethoprim/Sulfamethoxazole (Septra Ds) 1 tab PO BID [facility] Last Admin: 02/08/19 20:46 Dose: 1 tab Admin: 02/08/19 09:34 Dose: 1 tab Admin: 02/07/19 22:05 Dose: 1 tab Admin: 02/07/19 08:05 Dose: 1 tab Admin: 02/06/19 22:01 Dose: 1 tab - Assessment Assessment (Free Text/Narrative):: Mobility improving, right knee still limiting activity, no authorization yet for SNF/rehab - Plan Plan (Free Text/Narrative):: Discussed options for discharge, arranging for discharge to home with Home Health, plan home in AM
[2019-02-09] MEDS: Nozin Nasal Sanitizer NASBOTH SCH (07:59)
[2019-02-09] MEDS: Hydrochlorothiazide 25 MG Tab PO SCH (08:00)
[2019-02-09] MEDS: Docusate Sodium 100 MG Cap PO SCH (08:00)
[2019-02-09] MEDS: Sulfamethoxazole/Trimethoprim 800-160 MG Tab PO SCH (08:01)
[2019-02-09] MEDS: Lisinopril 10 MG Tab PO SCH (08:01)
[2019-02-09] MEDS: Enoxaparin 30 MG/0.3 ML Syringe SUBCUT SCH (08:01)
[2019-02-09] MEDS: traMADol 50 MG Tab PO PRN (12:06)
[2019-02-09] MEDS: LORazepam 1 MG Tab PO PRN (12:09)
--- NOTE | 2019-02-10 15:17 | OR ---
DATE OF PROCEDURE: 02/03/2019 SURGEON: Andreas Delgado MD PREOPERATIVE DIAGNOSES: 1. Right hip pain. 2. Limb length discrepancy. 3. Sciatic, right leg. POSTOPERATIVE DIAGNOSES: 1. Right hip pain. 2. Limb length discrepancy. 3. Sciatic, right leg. PROCEDURE PERFORMED: Revision right total hip arthroplasty femoral component and exchange of polyethylene acetabular component. IMPLANTS UTILIZED: A Lao stem, a -6 mm neck length femoral head, and a constrained G7 liner for a 52 mm cup. ANESTHESIA: Spinal with sedation. INDICATIONS: Heather is a very pleasant 68-year-old female, who had a right total hip arthroplasty done a little over a year ago. She has had persistent difficulty with right hip pain, back pain, sciatica, and abnormal gait due to limb length discrepancy. Right leg is measured clinically and by CT scanogram at approximately 1.5 cm longer than the left leg and also with increased offset. She now presents for revision of the femoral component in order to attempt to obtain equal limb lengths. Risks, benefits, potential complications of the procedure were discussed at some length. DESCRIPTION OF PROCEDURE: After adequate anesthesia was obtained, the patient was placed in the lateral decubitus position. Limb lengths were noted in this position. The right hip and leg were then prepped and draped in a sterile fashion and again the limb lengths were noted for referencing at the close of procedure. Previous incision was utilized and carried down through the subcutaneous tissues. The tensor fascia was divided in line with its fibers. A fair amount of scarring was present between the tensor fascia and the greater trochanter. This was released with Bovie electrocautery and a Charnley retractor was placed. A posterior approach was utilized. Short external rotators and piriformis were released. Piriformis was quite tight and fibrotic. Capsule was then released in a T- fashion. This allowed dislocation of the femoral head. The prosthetic head was removed from the taper. The capsule was released anteriorly and the trunnion was placed anterosuperior to the acetabular cup. The rim of the cup was cleared of soft tissues and osteotome was used to remove small osteophytes around the rim. The cup was found to be quite stable. A drill was used to place a drill hole into the polyethylene and a screw was then placed into the guide hole and used to lever the liner out of the acetabular cup. This was done without complication. Again, the stability of the cup was evaluated and found to be quite stable. Also noted to be at a good inclination and version. Attention was then turned back to the femur. Soft tissues were cleared from the superior aspect. Using a combination of small, straight, and curved osteotomes as well as flexible osteotomes, the metaphyseal bone was elevated off the ingrowth stem. This was taken down to a level it was felt safe without compromising the integrity of the proximal femur. An osteotome was then utilized to perform a greater trochanteric osteotomy. This was mobilized anteriorly allowing access to the remainder of the ingrowth stem and again using combination of a small, curved, and straight osteotomes and radial and flat flexible osteotomes, the stem was loosened from the proximal femur and then removed with a slap hammer. A small pedestal of bone was found at the distal end of the stem and hand awl was used to break through this down into the canal. Canal was then reamed using a boat deckhand size 14. A 14 stem and body Lao trial was then assembled and placed into the canal. This was tapped down below the level of the previous implant attempting to get a center rotation at least level if not slightly lower than the tip of the greater trochanter. Once this was accomplished, a trial liner was placed in the acetabulum and a -3.5 mm neck length head was placed. This appeared to recreate the limb length fairly well, but resulted in unacceptable laxity and propensity for dislocation. Rather than performing a trochanteric slide inferiorly and fixation with a plate or a shortening femoral osteotomy, a decision was made to proceed with a constrained liner as her acetabulum was well-fixed. Trial reduction was then made with this using a -6 mm neck length and this appeared to recreate the limb length within millimeters of level. The trials were then removed. The hip was irrigated. The constrained liner was then tapped into position into the cup. Position flush in the cup was confirmed visually. Lao stem was then placed and left just slightly proud of the planned final position. Two cable finishing area operator cables were placed around the trochanteric osteotomy. These were tensioned down into position and the stem was then tapped down into its final position with the tip of the trunnion level with the trochanter. Cable warehouse manager were tensioned a final time, crimped, and cut. This resulted in solid fixation of the osteotomy. The -6 mm femoral head was selected. This was placed onto the trunnion, maneuvered over the constrained liner aligning the flattened portions around the equator of the femoral head with the cup and a bone tamp was used to reduce the head into the constrained liner. The hip was taken through range of motion and no significant impingement was noted within the functional range. The hip was then irrigated. This was followed by irrigation with a dilute Betadine solution, which was left in place for 2.5 minutes and then irrigated out with pulse lavage. The tensor fascia was repaired using a #1 Ethibond in a running locking fashion. Skin was closed with 2-0 Vicryl and a running 3-0 Monocryl. Steri- Strips were applied. Sterile dressing was then placed. The patient tolerated the procedure well. There were no complications. She was taken from the operating room in stable condition. Andreas Delgado MD /[id number] NEIL
== END 2019-02-09 12:33 | disposition home health service (06) | DRG 468 ==
LOC: JP.SDS 10:22 → JP.SDSSCHI 10:22 → EDSTATUS 10:45 → JP.MS 19:11
PROVIDERS: ADMIT Specialist; ATTEND Specialist
PROC: 0SRR0JZ Replacement of Right Hip Joint, Femoral Surface with Synthetic Substitute, Open Approach (ICD-10-PCS; principal; 2019-02-03)
PROC: 0SPR0JZ Removal of Synthetic Substitute from Right Hip Joint, Femoral Surface, Open Approach (ICD-10-PCS; 2019-02-03)
PROC: 0SP909Z Removal of Liner from Right Hip Joint, Open Approach (ICD-10-PCS; 2019-02-03)
PROC: 0SUA09Z Supplement Right Hip Joint, Acetabular Surface with Liner, Open Approach (ICD-10-PCS; 2019-02-03)
DX: M21.751 Unequal limb length (acquired), right femur (principal); M54.31 Sciatica, right side; M25.551 Pain in right hip; F41.9 Anxiety disorder, unspecified; G89.18 Other acute postprocedural pain; M25.561 Pain in right knee; M25.461 Effusion, right knee; I10 Essential (primary) hypertension; M54.9 Dorsalgia, unspecified; G47.00 Insomnia, unspecified; R21 Rash and other nonspecific skin eruption; Z96.641 Presence of right artificial hip joint; M75.41 Impingement syndrome of right shoulder; M19.011 Primary osteoarthritis, right shoulder; F32.9 Major depressive disorder, single episode, unspecified; Z79.899 Other long term (current) drug therapy
CPT/HCPCS: 36415; 71045; 72170; 81001; 81003; 85014; 85018; 87086; 97110-GP; 97116-GP; 97140-GP; 97161-GP; 97165-GO; 97530-GP; 97535-GP; A9270-GY; C1713; J0690; J1100; J1650; J1885; J2250; J2270; J2405; J2704; J3010; J7030; J7040; J7050; J7120

== ENCOUNTER 2019-02-11 11:59 | Emergency (ER) | payer MEDICARE ==
--- NOTE | 2019-02-11 12:22 | EDM.PDOC ---
ED HPI GENERAL MEDICAL PROBLEM - General Chief Complaint: Abdominal Pain Stated Complaint: ABD PAIN Time Seen by Provider: 02/11/19 12:22 Source of Information: Reports: Patient, Family History Limitations: Reports: No Limitations - History of Present Illness INITIAL COMMENTS - FREE TEXT/NARRATIVE: pt had a revision of her rt hip on friday. She was found to have a UTI at that time. She was placed on bactrim whn she was discharged. She is taking asa for the blood thinner post op. She is not having extreme pain. She has not vomited but her intake has been very poor. Onset: Gradual, Other ( she has not really eaten since she was discharged. ) Duration: Hour(s): Location: Reports: Abdomen Associated Symptoms: Reports: Loss of Appetite, Nausea/Vomiting, Weakness Right Leg Pain Score (Numeric/FACES): 4 - Related Data Allergies Allergy/AdvReac Type Severity Reaction Status Date / Time sulfamethoxazole AdvReac Nausea Verified 02/11/19 14:35 [From Bactrim] trimethoprim [From Bactrim] AdvReac Nausea Verified 02/11/19 14:35 Home Meds: Home Meds Lisinopril 30 mg PO DAILY 03/22/17 [History] LORazepam [Ativan] 0.5 mg PO Q8H PRN 04/09/17 [History] hydroCHLOROthiazide [Hydrochlorothiazide] 25 mg PO DAILY 04/09/17 [History] traZODone 50 mg PO BEDTIME PRN 04/09/17 [History] traMADol [Ultram] 50 mg PO Q6H PRN #24 tab 01/18/19 [Rx] Sulfamethoxazole/Trimethoprim [Bactrim Ds Tablet] 1 each PO BID 5 Days #10 tablet 02/09/19 [Rx] Past Medical History HEENT History: Reports: Impaired Vision Other HEENT History: wears glasses Cardiovascular History: Reports: Hypertension Respiratory History: Reports: None Gastrointestinal History: Reports: None Genitourinary History: Reports: None ANIMAL TRAINER History: Reports: Musculoskeletal History: Reports: Other (See Below) Other Musculoskeletal History: R hip pain. R knee pain. s/p right total hip Neurological History: Reports: TIA Psychiatric History: Reports: Anxiety Endocrine/Metabolic History: Reports: None Hematologic History: Reports: None Immunologic History: Reports: None Oncologic (Cancer) History: Reports: None Dermatologic History: Reports: None - Infectious Disease History Infectious Disease History: Reports: Chicken Pox - Past Surgical History Female Surgical History: Reports: Tubal Ligation Musculoskeletal Surgical History: Reports: Shoulder Surgery Social & Family History - Family History Respiratory: Reports: Other (See Below) Other Respiratory Family Hisory: asbestos Musculoskeletal: Reports: Arthritis - Tobacco Use Smoking Status *Q: Never Smoker Second Hand Smoke Exposure: No - Caffeine Use Caffeine Use: Reports: Coffee, Soda - Recreational Drug Use Recreational Drug Use: No ED ROS GENERAL - Review of Systems Review Of Systems: See Below Constitutional: Reports: Weakness, Decreased Appetite, Other (nausea. ) HEENT: Reports: No Symptoms Respiratory: Reports: No Symptoms Cardiovascular: Reports: No Symptoms Endocrine: Reports: No Symptoms GI/Abdominal: Reports: Nausea : Reports: Other ( recent UTI on bactrim) Musculoskeletal: Reports: No Symptoms Skin: Reports: Dryness ED EXAM, GI/ABD - Physical Exam Exam: See Below Text/Narrative:: pt arrived with nausea and poor oral intake. She has a history of a UTI and has been on bactrim. Exam Limited By: No Limitations General Appearance: Alert, Anxious, Mild Distress Ears: Normal External Exam Nose: Normal Inspection Throat/Mouth: Normal Inspection Head: Atraumatic Neck: Normal Inspection Respiratory/Chest: No Respiratory Distress Cardiovascular: Regular Rate, Rhythm GI/Abdominal Exam: Soft, Non-Tender, Other (pt is complaining of marked nausea. ) Rectal (Female) Exam: Deferred Back Exam: Normal Inspection Extremities: Normal Inspection Neurological: Alert, Oriented, Normal Cognition Course - Vital Signs Last Recorded V/S: Last Vital Signs Temp 36.5 C 02/11/19 12:25 Pulse 82 02/11/19 12:25 Resp 18 02/11/19 12:25 BP 137/77 02/11/19 12:25 Pulse Ox 98 02/11/19 12:25 - Orders/Labs/Meds Labs: Laboratory Tests 02/11/19 02/11/19 02/11/19 Range/Units 12:33 12:33 12:56 WBC 14.8 H (4.5-11.0) K/uL RBC 3.48 (3.30-5.50) M/uL Hgb 10.0 L (12.0-15.0) g/dL Hct 32.0 L (36.0-48.0) % MCV 92 (80-98) fL MCH 29 (27-31) pg MCHC 31 L (32-36) % Plt Count 471 H (150-400) K/uL Neut % (Auto) 84 H (36-66) % Lymph % (Auto) 8 L (24-44) % Hudson % (Auto) 7 H (2-6) % Eos % (Auto) 1 L (2-4) % Baso % (Auto) 0 (0-1) % Sodium 134 L (140-148) mmol/L Potassium 4.7 (3.6-5.2) mmol/L Chloride 99 L (100-108) mmol/L Carbon Dioxide 24 (21-32) mmol/L Anion Gap 15.7 H (5.0-14.0) mmol/L BUN 19 H (7-18) mg/dL Creatinine 1.1 H D (0.6-1.0) mg/dL Est Cr Clr Drug Dosing 39.37 mL/min Estimated GFR (MDRD) 49 L (>60) Glucose 152 H (74-106) mg/dL Calcium 9.5 (8.5-10.1) mg/dL Total Bilirubin 0.3 (0.2-1.0) mg/dL AST 11 L (15-37) U/L ALT 22 (12-78) U/L Alkaline Phosphatase 86 (46-116) U/L Total Protein 6.4 (6.4-8.2) g/dL Albumin 2.9 L (3.4-5.0) g/dL Globulin 3.5 (2.3-3.5) g/dL Albumin/Globulin Ratio 0.8 L (1.2-2.2) Urine Color Yellow (YELLOW) Urine Appearance Slightly cloudy A (CLEAR) Urine pH 6.5 (5.0-8.0) Ur Specific [place] 1.025 (1.008-1.030) Urine Protein Negative (NEGATIVE) mg/dL Urine Glucose (UA) Negative (NEGATIVE) mg/dL Urine Ketones Negative (NEGATIVE) mg/dL Urine Occult Blood Negative (NEGATIVE) Urine Nitrite Negative (NEGATIVE) Urine Bilirubin Negative (NEGATIVE) Urine Urobilinogen 0.2 (0.2-1.0) EU/dL Ur Leukocyte Esterase Negative (NEGATIVE) Urine RBC 0-5 (0-5) Urine WBC 0-5 (0-5) Ur Epithelial Cells Few Amorphous Sediment Not seen Urine Bacteria Few Urine Mucus Not seen Meds: Medications Discontinued Medications Generic Name Dose Route Start Last Admin Trade Name Camleia PRN Reason Stop Dose Admin Sodium Chloride 1,000 mls @ 999 mls/hr 02/11/19 12:45 02/11/19 12:52 Normal Saline IV 999 mls/hr ASDIRECTED PARAS Administration Ondansetron HCl 4 mg 02/11/19 12:39 02/11/19 12:58 Zofran IVPUSH 02/11/19 12:40 4 mg ONETIME ONE Administration Ondansetron HCl 4 mg 02/11/19 14:14 02/11/19 14:22 Zofran IVPUSH 02/11/19 14:15 4 mg ONETIME ONE Administration - Re-Assessments/Exams Free Text/Narrative Re-Assessment/Exam: 02/11/19 14:15 pt feels like her nausea is better. She is voiding. She did have some jello and that went down ok. She was given a second dose of zoforan. She will stick with lit foods at home. Departure - Departure Time of Disposition: 14:16 Disposition: Home, Self-Care 01 Condition: Fair Clinical Impression: Medication adverse effect, Dehydration, Status post hip surgery - Discharge Information Instructions: Drug Allergy, [id number] Referrals: Ember Piedra DO [Primary Care Provider] - Forms: ED Department Discharge Care Plan Goals: zoforan 4mg subling q6h prn for nausea, lite diet, jello, soup, popiscles, push fluids, toast, crackers, yogurt, rtc if problems, stop the bactrim for her UTI that has now cleared.
[2019-02-11] MEDS ORDERED: Ondansetron 4 MG/2 ML SDV IVPUSH ONE ×2 (12:39→14:14)
[2019-02-11] MEDS ORDERED: Sodium Chloride 0.9% 1,000 ML IV SCH (12:45)
== END 2019-02-11 14:35 | disposition home or self-care (01) ==
LOC: JP.ED 11:59
DX: R11.0 Nausea (principal); T36.8X5A Adverse effect of other systemic antibiotics, initial encounter; E86.0 Dehydration; I10 Essential (primary) hypertension; F41.9 Anxiety disorder, unspecified; Z96.641 Presence of right artificial hip joint; Z88.1 Allergy status to other antibiotic agents; Z79.899 Other long term (current) drug therapy; Z86.73 Personal history of transient ischemic attack (TIA), and cerebral infarction without residual deficits
CPT/HCPCS: 36415; 80053; 81001; 85025; 96361; 96374; 96376; 99284; J2405; J7030; 99283

== ENCOUNTER 2020-02-06 01:28 | Emergency (ER) | payer MEDICARE ==
--- NOTE | 2020-02-06 01:57 | EDM.PDOC ---
ED HPI GENERAL MEDICAL PROBLEM - General Chief Complaint: General Stated Complaint: MED[facility] Time Seen by Provider: 02/06/20 01:35 Source of Information: Reports: Patient, EMS History Limitations: Reports: No Limitations - History of Present Illness INITIAL COMMENTS - FREE TEXT/NARRATIVE: 69-year-old female got out of bed tonight to go to the bathroom and got woozy and fell onto the floor. Her felt she was "unresponsive" for about a minute and it scared him. He thought she may have been having a stroke so called the ambulance. When EMS arrived she was back to baseline. She has had cold symptoms for the past week and get tested for Covid several days ago which has not returned. She has lost her sense of taste and smell recently. That is starting to improve. She did not hit her head or sustain an injury, and she does now remember that instead of taking 2 Tylenol before bed she accidentally took 2 trazodone. Onset: Sudden Duration: Hour(s): (Within the last hour) Associated Symptoms: Reports: Confusion (Mild confusion initially, resolved), Nausea/Vomiting (Some nausea and diarrhea). Denies: Fever/Chills, Headaches, Shortness of Breath - Related Data Allergies Allergy/AdvReac Type Severity Reaction Status Date / Time No Known Allergies Allergy Verified 02/06/20 01:37 Home Meds: Home Meds Lisinopril 30 mg PO DAILY 03/22/17 [History] LORazepam [Ativan] 0.5 mg PO Q8H PRN 04/09/17 [History] hydroCHLOROthiazide [Hydrochlorothiazide] 25 mg PO DAILY 04/09/17 [History] traZODone 50 mg PO BEDTIME PRN 04/09/17 [History] Past Medical History HEENT History: Reports: Impaired Vision Other HEENT History: wears glasses Cardiovascular History: Reports: Hypertension Respiratory History: Reports: None Gastrointestinal History: Reports: None Genitourinary History: Reports: None 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 R knee pain. s/p right total hip Neurological History: Reports: TIA Psychiatric History: Reports: Anxiety Endocrine/Metabolic History: Reports: None Hematologic History: Reports: None Immunologic History: Reports: None Oncologic (Cancer) History: Reports: None Dermatologic History: Reports: None - Infectious Disease History Infectious Disease History: Reports: Chicken Pox - Past Surgical History Head Surgeries/Procedures: Reports: None HEENT Surgical History: Reports: None Female Surgical History: Reports: Tubal Ligation Neurological Surgical History: Reports: None Musculoskeletal Surgical History: Reports: Hip Replacement, Shoulder Surgery Other Musculoskeletal Surgeries/Procedures:: s/p right total hip. s/p R hip revision 02/03/19. R hip pain Dermatological Surgical History: Reports: None Social & Family History - Family History Respiratory: Reports: Other (See Below) Other Respiratory Family Hisory: asbestos Musculoskeletal: Reports: Arthritis - Tobacco Use Tobacco Use Status *Q: Never Tobacco User - Caffeine Use Caffeine Use: Reports: Coffee - Recreational Drug Use Recreational Drug Use: No ED ROS GENERAL - Review of Systems Review Of Systems: See Below Constitutional: Reports: Malaise. Denies: Fever, Chills HEENT: Reports: Other (Loss of taste and smell) Respiratory: Reports: Cough. Denies: Shortness of Breath Cardiovascular: Denies: Chest Pain GI/Abdominal: Reports: Diarrhea, Nausea Skin: Reports: No Symptoms Neurological: Reports: Dizziness, Syncope. Denies: Headache Psychiatric: Reports: No Symptoms ED EXAM, GENERAL - Physical Exam Exam: See Below Exam Limited By: No Limitations General Appearance: Alert, No Apparent Distress Eye Exam: Bilateral Eye: Normal Inspection Head: Atraumatic Neck: Supple, Non-Tender Respiratory/Chest: Lungs Clear Cardiovascular: Regular Rate, Rhythm. No: Extra Beats GI/Abdominal: Soft, Non-Tender Extremities: Normal Inspection Neurological: Alert, Oriented, No Motor/Sensory Deficits, Other (Patient is very talkative, animated and shows no neurologic deficits whatsoever) Psychiatric: Normal Affect, Normal Mood Skin Exam: Warm, Dry Course - Vital Signs Last Recorded V/S: Last Vital Signs Temp 98.1 F 02/06/20 01:33 Pulse 53 L 02/06/20 01:33 Resp 17 02/06/20 01:33 BP 126/56 L 02/06/20 01:33 Pulse Ox 97 02/06/20 01:33 - Orders/Labs/Meds Orders: Active Orders 24 hr Category Date Time Status CORONAVIRUS COVID-19 RAPID [MOLEC] Routine Lab 02/06/20 02:10 Received - Re-Assessments/Exams Free Text/Narrative Re-Assessment/Exam: 02/06/20 01:57 A rapid Covid test was obtained but no further work-up is needed. 02/06/20 02:35 Covid is positive but I visited with the patient for 30 minutes and she is very healthy and very stable at this time. Departure - Departure Time of Disposition: 02:50 Disposition: Home, Self-Care 01 Clinical Impression: COVID-19 Syncope Qualifiers: Syncope type: vasovagal syncope Qualified Code(s): R55 - Syncope and collapse - Discharge Information Instructions: Syncope, [id number] Referrals: PCP,None [Primary Care Provider] - Forms: ED Department Discharge Care Plan Goals: Increase activity as tolerated and continue your regular medications. Return anytime if worsening such as difficulty breathing or recurring fainting. Sepsis Event Note (ED) - Evaluation Sepsis Screening Result: No Definite Risk - Focused Exam Vital Signs: Vital Signs Temp Pulse Resp BP Pulse Ox 02/06/20 01:33 98.1 F 53 L 17 126/56 L 97 - My Orders Last 24 Hours: My Active Orders 02/06/20 02:10 CORONAVIRUS COVID-19 RAPID [MOLEC] Routine - Assessment/Plan Last 24 Hours: My Active Orders 02/06/20 02:10 CORONAVIRUS COVID-19 RAPID [MOLEC] Routine
== END 2020-02-06 02:54 | disposition home or self-care (01) ==
LOC: JP.ED 01:28
DX: U07.1 COVID-19 (principal); R55 Syncope and collapse; I10 Essential (primary) hypertension; Z98.51 Tubal ligation status; Z79.899 Other long term (current) drug therapy
CPT/HCPCS: 99284; U0002

== ENCOUNTER 2020-03-20 07:56 | Inpatient (IN) | payer MEDICARE ==
[2020-03-20] MEDS ORDERED: Lactated Ringers 1,000 ML IV SCH (08:30)
[2020-03-20] MEDS: Nozin Nasal Sanitizer NASBOTH SCH ×2 (08:42→20:15)
[2020-03-20] MEDS ORDERED: Midazolam 1 MG/ML 2 ML SDV ONE (08:55)
[2020-03-20] MEDS ORDERED: fentaNYL 100 MCG/2 ML SDV ONE (08:55)
[2020-03-20] MEDS ORDERED: Propofol 200 MG/20 ML SDV ONE ×2 (08:55→11:58)
[2020-03-20] MEDS ORDERED: Lactated Ringers 1,000 ML ONE (12:06)
[2020-03-20] MEDS ORDERED: Morphine 2 MG/ML SYRINGE IVPUSH PRN (13:41)
[2020-03-20] MEDS ORDERED: Acetaminophen/HYDROcodone 325-5 MG Tab PO PRN ×2 (13:41→18:46)
[2020-03-20] MEDS ORDERED: Magnesium Hydroxide 400 MG/5 ML Susp 30 ML Cup PO PRN (13:41)
[2020-03-20] MEDS ORDERED: Acetaminophen/oxyCODONE 325-5 MG Tab PO PRN (13:41)
[2020-03-20] MEDS ORDERED: ceFAZolin 1 GM in Sodium Chloride 0.9% 50 ML IV SCH (13:45)
[2020-03-20] MEDS ORDERED: Ketorolac 30 MG/ML SDV IVPUSH SCH (13:45)
[2020-03-20] MEDS ORDERED: Morphine 2 MG/ML SYRINGE IVPUSH ONE (13:49)
[2020-03-20] MEDS ORDERED: traZODone 50 MG Tab PO PRN (14:05)
[2020-03-20] MEDS ORDERED: LORazepam 0.5 MG Tab PO PRN (14:05)
[2020-03-20] MEDS: Ketorolac 30 MG/ML SDV IVPUSH SCH ×2 (15:51→21:04)
--- NOTE | 2020-03-20 15:52 | CR ---
Pelvis 1V or 2V CLINICAL HISTORY: Right greater trochanteric fixation FINDINGS: Patient has had a total hip arthroplasty. There is been some revision with fixation plate over the lateral aspect of the greater trochanter fixed with steel wires. IMPRESSION: Fixation the greater trochanter total hip arthroplasty
[2020-03-20] MEDS: ceFAZolin 1 GM in Premix Bag 1 BAG IV SCH (17:31)
[2020-03-20] MEDS: Sodium Chloride 0.9% 1,000 ML IV SCH (17:32)
[2020-03-20] MEDS: Docusate Sodium 100 MG Cap PO SCH (20:15)
[2020-03-20] MEDS ORDERED: Docusate Sodium 100 MG Cap PO SCH (21:00)
[2020-03-20] MEDS ORDERED: Nozin Nasal Sanitizer NASBOTH SCH (21:00)
[2020-03-20] MEDS: Acetaminophen/oxyCODONE 325-5 MG Tab PO PRN (22:38)
[2020-03-21] MEDS: Sodium Chloride 0.9% 1,000 ML IV SCH (00:23)
[2020-03-21] MEDS: ceFAZolin 1 GM in Premix Bag 1 BAG IV SCH ×2 (03:06→10:16)
[2020-03-21] MEDS: Ketorolac 30 MG/ML SDV IVPUSH SCH ×4 (03:07→21:40)
[2020-03-21] MEDS: Acetaminophen/oxyCODONE 325-5 MG Tab PO PRN (07:09)
[2020-03-21] MEDS: Ondansetron 4 MG/2 ML SDV IVPUSH PRN (08:34)
[2020-03-21] MEDS: Hydrochlorothiazide 25 MG Tab PO SCH (08:54)
[2020-03-21] MEDS: Docusate Sodium 100 MG Cap PO SCH ×2 (08:54→20:02)
[2020-03-21] MEDS: Enoxaparin 30 MG/0.3 ML Syringe SUBCUT SCH (08:54)
[2020-03-21] MEDS: Lisinopril 20 MG Tab PO SCH (08:56)
[2020-03-21] MEDS: Nozin Nasal Sanitizer NASBOTH SCH ×2 (08:56→20:03)
[2020-03-21] MEDS: Lisinopril 5 MG Tab PO SCH (08:56)
[2020-03-21] MEDS ORDERED: Hydrochlorothiazide 25 MG Tab PO SCH (09:00)
[2020-03-21] MEDS ORDERED: Enoxaparin 30 MG/0.3 ML Syringe SUBCUT SCH (09:00)
[2020-03-21] MEDS ORDERED: LISINOPRIL PO SCH ×2 (09:00)
--- NOTE | 2020-03-21 12:40 | PCM.SURGPN ---
- General Info Date of Service: 03/21/20 Date of Surgery/Procedure: 03/20/20 Post-Op Diagnosis: right greater trochanter nonunion Functional Status: Reports: Pain Controlled, Ambulating, Incentive Spirometry - Review of Systems General: Reports: No Symptoms HEENT: Reports: No Symptoms Pulmonary: Reports: No Symptoms Cardiovascular: Reports: No Symptoms Gastrointestinal: Reports: No Symptoms Genitourinary: Reports: No Symptoms Musculoskeletal: Reports: Joint Pain (right hip), Joint Swelling (Right Knee) Skin: Reports: No Symptoms Neurological: Reports: No Symptoms Psychiatric: Reports: No Symptoms - Patient Data Vitals - Most Recent: Last Vital Signs Temp 98.2 F 03/21/20 12:13 Pulse 79 03/21/20 12:13 Resp 18 03/21/20 12:13 BP 107/53 L 03/21/20 12:13 Pulse Ox 99 03/21/20 12:13 Weight - Most Recent: 158 lb 14.406 oz I&O - Last 24 Hours: Intake & Output 03/20/20 03/21/20 03/21/20 22:59 06:59 14:59 Intake Total 1230 2182 Output Total 650 Balance 1230 1532 Lab Results Last 24 Hrs: Laboratory Results - last 24 hr 03/21/20 Range/Units 04:40 WBC 7.4 (4.5-11.0) K/uL RBC 3.19 L (3.30-5.50) M/uL Hgb 9.2 L D (12.0-15.0) g/dL Hct 29.4 L (36.0-48.0) % MCV 92 (80-98) fL MCH 29 (27-31) pg MCHC 31 L (32-36) % Plt Count 214 (150-400) K/uL Med Orders - Current: Current Medications Acetaminophen (Tylenol) 650 mg PO Q4H PRN PRN Reason: Pain/Fever Hydrocodone Bitart/Acetaminophen ([place]ell 325-5 Mg) 1 tab PO Q4H PRN PRN Reason: Pain Bandage/Support Products ( Nasal Friend [address]) 1 applic NASBOTH BID [facility] Stop: 03/26/20 21:01 Last Admin: 03/21/20 08:56 Dose: 1 applic Documented by: Docusate Sodium (Colace) 100 mg PO BID [facility] Last Admin: 03/21/20 08:54 Dose: 100 mg Documented by: Enoxaparin Sodium (Lovenox) 30 mg SUBCUT DAILY [facility] Last Admin: 03/21/20 08:54 Dose: 30 mg Documented by: Hydrochlorothiazide (Hydrochlorothiazide) 25 mg PO DAILY [facility] Last Admin: 03/21/20 08:54 Dose: 25 mg Documented by: Sodium Chloride (Normal Saline) 1,000 mls @ 125 mls/hr IV ASDIRECTED [facility] Last Admin: 03/21/20 00:23 Dose: 125 mls/hr Documented by: Ketorolac Tromethamine (Toradol) 30 mg IVPUSH Q6H [facility] Stop: 03/21/20 22:01 Last Admin: 03/21/20 10:16 Dose: 30 mg Documented by: Lisinopril (Prinivil) 40 mg PO DAILY [facility] Last Admin: 03/21/20 08:56 Dose: 40 mg Documented by: Lisinopril (Prinivil) 5 mg PO DAILY [facility] Last Admin: 03/21/20 08:56 Dose: 5 mg Documented by: Lorazepam (Ativan) 0.5 mg PO Q8H PRN PRN Reason: Anxiety Magnesium Hydroxide (Milk Of Magnesia) 30 ml PO BID PRN PRN Reason: Constipation Morphine Sulfate (Morphine) 1 mg IVPUSH Q1H PRN PRN Reason: Breakthrough Pain Ondansetron HCl (Zofran) 4 mg IVPUSH Q4H PRN PRN Reason: Nausea/Vomiting Last Admin: 03/21/20 08:34 Dose: 4 mg Documented by: Oxycodone/Acetaminophen (Percocet 325-5 Mg) 1 tab PO Q4H PRN PRN Reason: Pain Last Admin: 03/21/20 07:09 Dose: 1 tab Documented by: Trazodone HCl (Trazodone) 50 mg PO ONETIME PRN PRN Reason: Sleep Last Admin: 03/20/20 21:04 Dose: 50 mg Documented by: Discontinued Medications Hydrocodone Bitart/Acetaminophen ([place] 325-5 Mg) 1 tab PO Q6H PRN PRN Reason: Pain Docusate Sodium (Colace) 100 mg PO BID [facility] Enoxaparin Sodium (Lovenox) 30 mg SUBCUT DAILY [facility] Fentanyl (Sublimaze) Confirm Administered Dose 100 mcg .ROUTE .[facility] ONE Stop: 03/20/20 08:56 Hydrochlorothiazide (Hydrochlorothiazide) 25 mg PO DAILY [facility] Lactated Ringer's (Ringers, Lactated) 1,000 mls @ 75 mls/hr IV ASDIRECTED [facility] Last Admin: 03/20/20 08:42 Dose: 75 mls/hr Documented by: Cefazolin Sodium 2 gm/ (Dextrose/Water) 100 mls @ 200 mls/hr IV ONETIME ONE Stop: 03/20/20 09:59 Last Admin: 03/20/20 10:57 Dose: 200 mls/hr Documented by: Lactated Ringer's (Ringers, Lactated) Confirm Administered Dose 1,000 mls @ as directed .ROUTE .[facility] ONE Stop: 03/20/20 12:07 Cefazolin Sodium 1 gm/ Sodium (Chloride) 50 mls @ 200 mls/hr IV Q8H [facility] Stop: 03/21/20 05:59 Last Admin: 03/20/20 15:40 Dose: Not Given Documented by: Cefazolin Sodium/Dextrose 1 gm (/ Premix) 50 mls @ 100 mls/hr IV Q8H [facility] Stop: 03/21/20 10:29 Last Admin: 03/21/20 10:16 Dose: 100 mls/hr Documented by: Ketorolac Tromethamine (Toradol) 30 mg IVPUSH Q6H [facility] Stop: 03/21/20 19:46 Last Admin: 03/20/20 15:40 Dose: Not Given Documented by: Midazolam HCl (Versed 1 Mg/Ml) Confirm Administered Dose 2 mg .ROUTE .[facility] ONE Stop: 03/20/20 08:56 Morphine Sulfate (Morphine) 2 mg IVPUSH ONETIME ONE Stop: 03/20/20 13:50 Last Admin: 03/20/20 13:54 Dose: 2 mg Documented by: Non-Formulary Medication (Lisinopril [Lisinopril]) 45 mg PO DAILY [facility] Oxycodone/Acetaminophen (Percocet 325-5 Mg) 1 tab PO Q6H PRN PRN Reason: Pain Last Admin: 03/20/20 16:50 Dose: 1 tab Documented by: Propofol (Diprivan 20 Ml) Confirm Administered Dose 200 mg .ROUTE .[facility] Stop: 03/20/20 08:56 Propofol (Diprivan 20 Ml) Confirm Administered Dose 200 mg .ROUTE .[facility] ONE Stop: 03/20/20 11:59 - Exam Wound/Incisions: No Drainage (Dressing will be removed on POD#2 ), Other General: Alert, Oriented, Cooperative Extremities: Joint Swelling (right hip, right knee ), Leg Pain (Right Hip), Limited Range of Motion Neurological: No New Focal Deficit Psy/Mental Status: Alert, Normal Affect, Normal Mood Sepsis Event Note - Evaluation Sepsis Screening Result: No Definite Risk - Focused Exam Vital Signs: Vital Signs Temp Pulse Resp BP BP BP Pulse Ox 03/21/20 12:13 98.2 F 79 18 107/53 L 99 03/21/20 08:56 126/70 03/21/20 07:00 97.4 F 70 18 126/70 98 03/21/20 03:11 97.8 F 77 18 126/66 96 - Problem List & Annotations (1) S/P ORIF (open reduction internal fixation) fracture SNOMED Code(s): 456153848 Code(s): Z98.890 - OTHER SPECIFIED POSTPROCEDURAL STATES; Z87.81 - PERSONAL HISTORY OF (HEALED) TRAUMATIC FRACTURE Status: Acute Current Visit: Yes Annotation/Comment:: Right Greater Trochanter - Problem List Review Problem List Initiated/Reviewed/Updated: Yes - My Orders Last 24 Hours: Active Orders 24 hr Category Date Time Status Patient Status [ADT] Routine ADT 03/20/20 13:42 Active Ambulate [RC] QID Care 03/20/20 13:41 Active Ambulate [RC] QID Care 03/20/20 13:42 Active Antiembolic Devices [RC] .Routine Care 03/20/20 13:43 Active Cooling Warming Measures [RC] ASDIRECTED Care 03/20/20 13:41 Active Head of Bed Elevation [RC] ASDIRECTED Care 03/20/20 13:42 Active Intake and Output [RC] QSHIFT Care 03/20/20 13:42 Active May Shower [RC] ASDIRECTED Care 03/20/20 13:42 Active Neurovascular Check [RC] Q4H Care 03/20/20 13:42 Active Notify Provider Vital Signs [RC] ASDIRECTED Care 03/20/20 13:41 Active Oxygen Therapy [RC] PRN Care 03/20/20 13:42 Active RT Incentive Spirometry [RC] Q1HWA Care 03/20/20 13:42 Active Up to Chair [RC] QID Care 03/20/20 13:42 Active Up to Chair [RC] QID Care 03/20/20 13:42 Active VTE/DVT Education [RC] Click to Edit Care 03/20/20 13:43 Active Vital Signs [RC] Q4H Care 03/20/20 13:42 Active Wound Care [RC] Q12H Care 03/20/20 13:42 Active Consult to Case Management/Wind [employer] Electrical Systems Designer [CONS] Cons 03/20/20 13:42 Active Routine PT Evaluation and Treatment [CONS] Routine Cons 03/20/20 13:42 Active PT Evaluation and Treatment [CONS] Routine Cons 03/20/20 13:42 Active Regular Diet [DIET] Diet 03/20/20 Dinner Active Acetaminophen [TylenoL] Med 03/20/20 13:41 Active 650 mg PO Q4H PRN Acetaminophen/HYDROcodone [Bunnell 325-5 MG] Med 03/20/20 18:46 Active 1 tab PO Q4H PRN Acetaminophen/oxyCODONE [Percocet 325-5 MG] Med 03/20/20 18:47 Active 1 tab PO Q4H PRN Docusate Sodium [Colace] Med 03/20/20 21:00 Active 100 mg PO BID Enoxaparin [Lovenox] Med 03/21/20 09:00 Active 30 mg SUBCUT DAILY Ketorolac [Toradol] Med 03/20/20 16:00 Active 30 mg IVPUSH Q6H LORazepam [Ativan] Med 03/20/20 14:05 Active 0.5 mg PO Q8H PRN Magnesium Hydroxide [Milk of Magnesia] Med 03/20/20 13:41 Active 30 ml PO BID PRN Morphine Med 03/20/20 13:41 Active 1 mg IVPUSH Q1H PRN Ondansetron [Zofran] Med 03/20/20 13:41 Active 4 mg IVPUSH Q4H PRN Sodium Chloride 0.9% [Normal Saline] 1,000 ml Med 03/20/20 13:45 Active IV ASDIRECTED hydroCHLOROthiazide Med 03/21/20 09:00 Active 25 mg PO DAILY lisinopriL [Prinivil] Med 03/21/20 09:00 Active 40 mg PO DAILY lisinopriL [Prinivil] Med 03/21/20 09:00 Active 5 mg PO DAILY traZODone Med 03/20/20 14:05 Active 50 mg PO ONETIME PRN Antiembolic Hose [OM.PC] Routine Oth 03/20/20 13:41 Ordered Antiembolic Hose [OM.PC] Routine Oth 03/20/20 13:42 Ordered DVT/VTE Prophylaxis Reflex [OM.PC] Routine Oth 03/20/20 13:42 Ordered Ice Therapy [OM.PC] Per Unit Routine Oth 03/20/20 13:42 Ordered Medication Continuation Instructions [OM.PC] Per Unit Oth 03/20/20 13:42 Ordered Routine Oral Care [OM.PC] Routine Oth 03/20/20 13:42 Ordered Sequential Compression Device [OM.PC] Routine Oth 03/20/20 13:41 Ordered Sequential Compression Device [OM.PC] Routine Oth 03/20/20 13:42 Ordered Resuscitation Status Routine Resus Stat 03/20/20 13:41 Ordered Medication Orders Acetaminophen (Tylenol) 650 mg PO Q4H PRN PRN Reason: Pain/Fever Hydrocodone Bitart/Acetaminophen ([place] 325-5 Mg) 1 tab PO Q4H PRN PRN Reason: Pain Bandage/Support Products ( Nasal Friend Of [address] Court) 1 applic NASBOTH BID [facility] Stop: 03/26/20 21:01 Last Admin: 03/21/20 08:56 Dose: 1 applic Documented by: Admin: 03/20/20 20:15 Dose: 1 applic Documented by: Admin: 03/20/20 08:42 Dose: 1 applic Documented by: TOM Docusate Sodium (Colace) 100 mg PO BID [facility] Last Admin: 03/21/20 08:54 Dose: 100 mg Documented by: Admin: 03/20/20 20:15 Dose: 100 mg Documented by: YOLANDA Enoxaparin Sodium (Lovenox) 30 mg SUBCUT DAILY [facility] Last Admin: 03/21/20 08:54 Dose: 30 mg Documented by: CRISTIN Hydrochlorothiazide (Hydrochlorothiazide) 25 mg PO DAILY [facility] Last Admin: 03/21/20 08:54 Dose: 25 mg Documented by: CRISTIN Sodium Chloride (Normal Saline) 1,000 mls @ 125 mls/hr IV ASDIRECTED [facility] Last Admin: 03/21/20 00:23 Dose: 125 mls/hr Documented by: Infusion: 03/21/20 00:23 Dose: 125 mls/hr Documented by: Admin: 03/20/20 17:32 Dose: 125 mls/hr Documented by: RONNI Ketorolac Tromethamine (Toradol) 30 mg IVPUSH Q6H [facility] Stop: 03/21/20 22:01 Last Admin: 03/21/20 10:16 Dose: 30 mg Documented by: Admin: 03/21/20 03:07 Dose: 30 mg Documented by: Admin: 03/20/20 21:04 Dose: 30 mg Documented by: Admin: 03/20/20 15:51 Dose: 30 mg Documented by: RONNI Lisinopril (Prinivil) 40 mg PO DAILY [facility] Last Admin: 03/21/20 08:56 Dose: 40 mg Documented by: CRISTIN Lisinopril (Prinivil) 5 mg PO DAILY [facility] Last Admin: 03/21/20 08:56 Dose: 5 mg Documented by: CRISTIN Lorazepam (Ativan) 0.5 mg PO Q8H PRN PRN Reason: Anxiety Magnesium Hydroxide (Milk Of Magnesia) 30 ml PO BID PRN PRN Reason: Constipation Morphine Sulfate (Morphine) 1 mg IVPUSH Q1H PRN PRN Reason: Breakthrough Pain Ondansetron HCl (Zofran) 4 mg IVPUSH Q4H PRN PRN Reason: Nausea/Vomiting Last Admin: 03/21/20 08:34 Dose: 4 mg Documented by: CRISTIN Oxycodone/Acetaminophen (Percocet 325-5 Mg) 1 tab PO Q4H PRN PRN Reason: Pain Last Admin: 03/21/20 07:09 Dose: 1 tab Documented by: Admin: 03/20/20 22:38 Dose: 1 tab Documented by: YOLANDA Trazodone HCl (Trazodone) 50 mg PO ONETIME PRN PRN Reason: Sleep Last Admin: 03/20/20 21:04 Dose: 50 mg Documented by: YOLANDA - Assessment Assessment (Free Text/Narrative):: Assessment: Patient is a pleasant 69 y/o female, POD#1, s/p fixation of right greater trochanter. Patient tolerated surgery well with no complications. Patient had some concern after surgery with being able to sleep at night in the hospital; home-nighttime prns were utilized (1 tab PO 50 mg Trazodone). Patient reports feeling well rested on visit this morning and reports pain is very tolerable at this time. Patient had ambulated with FWW with physical therapy this morning and anticipates another session of physical therapy this afternoon. Some nausea reported with Percocet; advised to try Hydrocodone for pain management and see if this makes a positive difference. Patient status changed from same-day surgery to inpatient; additional physical therapy needed prior to discharge for patient to be safe at home. Plan: * Verbal approval given for nursing staff to remove [place] catheter this afternoon * Verbal approval given for nursing staff to saline lock patient * Dressing change will be performed by orthopedic provider tomorrow * Patient to complete another physical therapy session this afternoon; advised to work on stairs with physical therapy, as patient does have 7-8 stairs at home * Anticipate discharge to home Friday or , pending progress with physical therapy and pain management
[2020-03-21] MEDS: Acetaminophen 325 MG Tab PO PRN ×2 (17:06→21:44)
[2020-03-22] MEDS: Nozin Nasal Sanitizer NASBOTH SCH ×2 (09:22→20:14)
[2020-03-22] MEDS: Acetaminophen 325 MG Tab PO PRN ×2 (09:22→18:53)
[2020-03-22] MEDS: Docusate Sodium 100 MG Cap PO SCH ×2 (09:23→20:12)
[2020-03-22] MEDS: Hydrochlorothiazide 25 MG Tab PO SCH (09:23)
[2020-03-22] MEDS: Enoxaparin 30 MG/0.3 ML Syringe SUBCUT SCH (09:23)
[2020-03-22] MEDS: Lisinopril 5 MG Tab PO SCH (09:23)
[2020-03-22] MEDS: Lisinopril 20 MG Tab PO SCH (09:24)
[2020-03-22] MEDS: ceFAZolin 1 GM in Premix Bag 1 BAG IV SCH ×2 (12:32→19:21)
[2020-03-22] MEDS: Ondansetron 4 MG/2 ML SDV IVPUSH PRN (12:37)
--- NOTE | 2020-03-22 15:32 | PCM.SURGPN ---
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 Functional Status: Reports: Pain Controlled, Tolerating Diet, Ambulating, Urinating - Review of Systems General: Reports: Fever (100.4) HEENT: Reports: No Symptoms Pulmonary: Reports: No Symptoms Cardiovascular: Reports: No Symptoms Gastrointestinal: Reports: Nausea Genitourinary: Reports: No Symptoms Musculoskeletal: Reports: Leg Pain (right), Joint Pain (right hip) Neurological: Reports: No Symptoms Psychiatric: Reports: No Symptoms - Patient Data Vitals - Most Recent: Last Vital Signs Temp 99.6 F 03/22/20 14:33 Pulse 81 03/22/20 14:33 Resp 16 03/22/20 14:33 BP 144/116 H 03/22/20 14:33 Pulse Ox 96 03/22/20 14:33 Weight - Most Recent: 158 lb 14.406 oz I&O - Last 24 Hours: Intake & Output 03/22/20 03/22/20 03/22/20 06:59 14:59 22:59 Intake Total 50 Balance 50 Med Orders - Current: Current Medications Acetaminophen (Tylenol) 650 mg PO Q4H PRN PRN Reason: Pain/Fever Last Admin: 03/22/20 09:22 Dose: 650 mg Documented by: Hydrocodone Bitart/Acetaminophen (Cos Cob 325-5 Mg) 1 tab PO Q4H PRN PRN Reason: Pain Last Admin: 03/21/20 14:56 Dose: 1 tab Documented by: Bandage/Support Products ( Nasal Distance Learning Technician) 1 applic NASBOTH BID [facility] Stop: 03/26/20 21:01 Last Admin: 03/22/20 09:22 Dose: 1 applic Documented by: Docusate Sodium (Colace) 100 mg PO BID [facility] Last Admin: 03/22/20 09:23 Dose: Not Given Documented by: Enoxaparin Sodium (Lovenox) 30 mg SUBCUT DAILY [facility] Last Admin: 03/22/20 09:23 Dose: 30 mg Documented by: Hydrochlorothiazide (Hydrochlorothiazide) 25 mg PO DAILY [facility] Last Admin: 03/22/20 09:23 Dose: 25 mg Documented by: Cefazolin Sodium/Dextrose 1 gm (/ Premix) 50 mls @ 100 mls/hr IV Q8H [facility] Stop: 03/24/20 04:29 Last Admin: 03/22/20 12:32 Dose: 100 mls/hr Documented by: Lisinopril (Prinivil) 40 mg PO DAILY [facility] Last Admin: 03/22/20 09:24 Dose: 40 mg Documented by: Lisinopril (Prinivil) 5 mg PO DAILY [facility] Last Admin: 03/22/20 09:23 Dose: 5 mg Documented by: Lorazepam (Ativan) 0.5 mg PO Q8H PRN PRN Reason: Anxiety Magnesium Hydroxide (Milk Of Magnesia) 30 ml PO BID PRN PRN Reason: Constipation Morphine Sulfate (Morphine) 1 mg IVPUSH Q1H PRN PRN Reason: Breakthrough Pain Ondansetron HCl (Zofran) 4 mg IVPUSH Q4H PRN PRN Reason: Nausea/Vomiting Last Admin: 03/22/20 12:37 Dose: 4 mg Documented by: Oxycodone/Acetaminophen (Percocet 325-5 Mg) 1 tab PO Q4H PRN PRN Reason: Pain Last Admin: 03/21/20 07:09 Dose: 1 tab Documented by: Trazodone HCl (Trazodone) 50 mg PO ONETIME PRN PRN Reason: Sleep Last Admin: 03/20/20 21:04 Dose: 50 mg Documented by: Discontinued Medications Hydrocodone Bitart/Acetaminophen (Cos Cob 325-5 Mg) 1 tab PO Q6H PRN PRN Reason: Pain Docusate Sodium (Colace) 100 mg PO BID [facility] Enoxaparin Sodium (Lovenox) 30 mg SUBCUT DAILY [facility] Fentanyl (Sublimaze) Confirm Administered Dose 100 mcg .ROUTE .STK-MED ONE Stop: 03/20/20 08:56 Hydrochlorothiazide (Hydrochlorothiazide) 25 mg PO DAILY [facility] Lactated Ringer's (Ringers, Lactated) 1,000 mls @ 75 mls/hr IV ASDIRECTED [facility] Last Admin: 03/20/20 08:42 Dose: 75 mls/hr Documented by: Cefazolin Sodium 2 gm/ (Dextrose/Water) 100 mls @ 200 mls/hr IV ONETIME ONE Stop: 03/20/20 09:59 Last Admin: 03/20/20 10:57 Dose: 200 mls/hr Documented by: Lactated Ringer's (Ringers, Lactated) Confirm Administered Dose 1,000 mls @ as directed .ROUTE .STK-MED ONE Stop: 03/20/20 12:07 Cefazolin Sodium 1 gm/ Sodium (Chloride) 50 mls @ 200 mls/hr IV Q8H [facility] Stop: 03/21/20 05:59 Last Admin: 03/20/20 15:40 Dose: Not Given Documented by: Sodium Chloride (Normal Saline) 1,000 mls @ 125 mls/hr IV ASDIRECTED [facility] Last Admin: 03/21/20 00:23 Dose: 125 mls/hr Documented by: Cefazolin Sodium/Dextrose 1 gm (/ Premix) 50 mls @ 100 mls/hr IV Q8H [facility] Stop: 03/21/20 10:29 Last Admin: 03/21/20 10:16 Dose: 100 mls/hr Documented by: Ketorolac Tromethamine (Toradol) 30 mg IVPUSH Q6H [facility] Stop: 03/21/20 19:46 Last Admin: 03/20/20 15:40 Dose: Not Given Documented by: Ketorolac Tromethamine (Toradol) 30 mg IVPUSH Q6H [facility] Stop: 03/21/20 22:01 Last Admin: 03/21/20 21:40 Dose: 30 mg Documented by: Midazolam HCl (Versed 1 Mg/Ml) Confirm Administered Dose 2 mg .ROUTE .STK-MED ONE Stop: 03/20/20 08:56 Morphine Sulfate (Morphine) 2 mg IVPUSH ONETIME ONE Stop: 03/20/20 13:50 Last Admin: 03/20/20 13:54 Dose: 2 mg Documented by: Non-Formulary Medication (Lisinopril [Lisinopril]) 45 mg PO DAILY [facility] Oxycodone/Acetaminophen (Percocet 325-5 Mg) 1 tab PO Q6H PRN PRN Reason: Pain Last Admin: 03/20/20 16:50 Dose: 1 tab Documented by: Propofol (Diprivan 20 Ml) Confirm Administered Dose 200 mg .ROUTE .STK-MED ONE Stop: 03/20/20 08:56 Propofol (Diprivan 20 Ml) Confirm Administered Dose 200 mg .ROUTE .STK-MED ONE Stop: 03/20/20 11:59 - Exam Wound/Incisions: Dressing Dry and Intact, No Drainage General: Alert, Oriented, Cooperative, No Acute Distress Extremities: Leg Pain (right hip), Limited Range of Motion, Increased Warmth (mild warmth to touch around incision on right hip ) Skin: Warm, Intact Neurological: No New Focal Deficit Psy/Mental Status: Alert, Normal Affect, Normal Mood Sepsis Event Note - Evaluation Sepsis Screening Result: No Definite Risk - Focused Exam Vital Signs: Vital Signs Temp Temp Pulse Resp BP BP Pulse Ox 03/22/20 14:33 99.6 F 81 16 144/116 H 96 03/22/20 10:47 100.4 F 78 16 124/52 L 98 03/22/20 09:52 100.4 F 03/22/20 09:24 100/82 03/22/20 09:23 100/82 03/22/20 09:22 100.2 F 03/22/20 07:17 100.2 F 76 16 100/82 98 - Problem List & Annotations (1) S/P ORIF (open reduction internal fixation) fracture SNOMED Code(s): 073881891 Code(s): Z98.890 - OTHER SPECIFIED POSTPROCEDURAL STATES; Z87.81 - PERSONAL HISTORY OF (HEALED) TRAUMATIC FRACTURE Status: Acute Current Visit: Yes Annotation/Comment:: Right Greater Trochanter - Problem List Review Problem List Initiated/Reviewed/Updated: Yes - My Orders Last 24 Hours: Active Orders 24 hr Category Date Time Status ceFAZolin [Ancef] 1 gm Med 03/22/20 12:00 Active Premix Bag 1 bag IV Q8H Medication Orders Acetaminophen (Tylenol) 650 mg PO Q4H PRN PRN Reason: Pain/Fever Last Admin: 03/22/20 09:22 Dose: 650 mg Documented by: Admin: 03/21/20 21:44 Dose: 650 mg Documented by: Admin: 03/21/20 17:06 Dose: 650 mg Documented by: CRISTIN Hydrocodone Bitart/Acetaminophen (Cos Cob 325-5 Mg) 1 tab PO Q4H PRN PRN Reason: Pain Last Admin: 03/21/20 14:56 Dose: 1 tab Documented by: CRISTIN Bandage/Support Products ( Nasal Distance Learning Technician) 1 applic NASBOTH BID [facility] Stop: 03/26/20 21:01 Last Admin: 03/22/20 09:22 Dose: 1 applic Documented by: Admin: 03/21/20 20:03 Dose: 1 applic Documented by: Admin: 03/21/20 08:56 Dose: 1 applic Documented by: Admin: 03/20/20 20:15 Dose: 1 applic Documented by: Admin: 03/20/20 08:42 Dose: 1 applic Documented by: TOM Docusate Sodium (Colace) 100 mg PO BID [facility] Last Admin: 03/22/20 09:23 Dose: Not Given Documented by: Admin: 03/21/20 20:02 Dose: 100 mg Documented by: Admin: 03/21/20 08:54 Dose: 100 mg Documented by: Admin: 03/20/20 20:15 Dose: 100 mg Documented by: YOLANDA Enoxaparin Sodium (Lovenox) 30 mg SUBCUT DAILY [facility] Last Admin: 03/22/20 09:23 Dose: 30 mg Documented by: Admin: 03/21/20 08:54 Dose: 30 mg Documented by: CRISTIN Hydrochlorothiazide (Hydrochlorothiazide) 25 mg PO DAILY [facility] Last Admin: 03/22/20 09:23 Dose: 25 mg Documented by: Admin: 03/21/20 08:54 Dose: 25 mg Documented by: CRISTIN Cefazolin Sodium/Dextrose 1 gm (/ Premix) 50 mls @ 100 mls/hr IV Q8H [facility] Stop: 03/24/20 04:29 Last Admin: 03/22/20 12:32 Dose: 100 mls/hr Documented by: MISSY Lisinopril (Prinivil) 40 mg PO DAILY [facility] Last Admin: 03/22/20 09:24 Dose: 40 mg Documented by: Admin: 03/21/20 08:56 Dose: 40 mg Documented by: CRISTIN Lisinopril (Prinivil) 5 mg PO DAILY [facility] Last Admin: 03/22/20 09:23 Dose: 5 mg Documented by: Admin: 03/21/20 08:56 Dose: 5 mg Documented by: CRISTIN Lorazepam (Ativan) 0.5 mg PO Q8H PRN PRN Reason: Anxiety Magnesium Hydroxide (Milk Of Magnesia) 30 ml PO BID PRN PRN Reason: Constipation Morphine Sulfate (Morphine) 1 mg IVPUSH Q1H PRN PRN Reason: Breakthrough Pain Ondansetron HCl (Zofran) 4 mg IVPUSH Q4H PRN PRN Reason: Nausea/Vomiting Last Admin: 03/22/20 12:37 Dose: 4 mg Documented by: Admin: 03/21/20 08:34 Dose: 4 mg Documented by: CRISTIN Oxycodone/Acetaminophen (Percocet 325-5 Mg) 1 tab PO Q4H PRN PRN Reason: Pain Last Admin: 03/21/20 07:09 Dose: 1 tab Documented by: Admin: 03/20/20 22:38 Dose: 1 tab Documented by: YOLANDA Trazodone HCl (Trazodone) 50 mg PO ONETIME PRN PRN Reason: Sleep Last Admin: 03/20/20 21:04 Dose: 50 mg Documented by: YOLANDA - Assessment Assessment (Free Text/Narrative):: Assessment: Patient is a pleasant 69 y/o female, POD#2, s/p right greater trochanteric fixation. Patient tolerated surgery well with no complications. Patients pain is well controlled at this time on PO medications. Patient reports some mild nausea; utilized prn Zofran which seemed to help. Patient has been ambulating with FWW and completed stairs successfully with physical therapy today. Reports mild dizziness earlier in the day when working with physical therapist; resolved with sitting. Patient temperature at 100.4F late morning; nursing reported leg was warm, red, and firm. Dressing was removed by orthopedic team this afternoon; incision intact, mild warmth to touch, no surrounding erythema or drainage. Patient meets inpatient criteria at this time due to elevated temperature post- op, receiving additional antibiotic coverage. Plan: Dressing was removed and inspected by orthopedic provider; incision intact, mild warmth to touch, no surrounding erythema or drainage * Additional Cefazolin ordered while inpatient * Dressing left off, steri strips intact. Orthopedic team will re-assess incision tomorrow and apply new dressing at that time Continue with physical therapy sessions while in the hospital Anticipate discharge to home tomorrow. Anticipate outpatient physical therapy upon discharge
[2020-03-23] MEDS: ceFAZolin 1 GM in Premix Bag 1 BAG IV SCH ×2 (03:20→12:28)
[2020-03-23] MEDS: Acetaminophen 325 MG Tab PO PRN (04:12)
[2020-03-23] MEDS: Ondansetron 4 MG/2 ML SDV IVPUSH PRN (08:11)
[2020-03-23] MEDS: Nozin Nasal Sanitizer NASBOTH SCH (08:46)
[2020-03-23] MEDS: Hydrochlorothiazide 25 MG Tab PO SCH (08:46)
[2020-03-23] MEDS: Enoxaparin 30 MG/0.3 ML Syringe SUBCUT SCH (08:47)
[2020-03-23] MEDS: Docusate Sodium 100 MG Cap PO SCH (08:48)
[2020-03-23] MEDS: Lisinopril 20 MG Tab PO SCH (08:49)
[2020-03-23] MEDS: Lisinopril 5 MG Tab PO SCH (08:50)
--- NOTE | 2020-03-23 10:13 | PCM.DCSUM1 ---
Discharge Summary - Hospital Course HPI Initial Comments: Patient is a 69 y/o female, POD#3, s/p right greater trochanteric fixation. Tolerated surgery well with no major complications. Brief History: Nonunion of right greater trochanter - Discharge Data Discharge Date: 03/23/20 Discharge Disposition: Home, Self-Care 01 Condition: Good - Referral to Home Health Date of Face to Face Encounter: 03/23/20 Primary Care Physician: Ember Piedra, DO - Discharge Diagnosis/Problem(s) (1) S/P ORIF (open reduction internal fixation) fracture SNOMED Code(s): 301615857 ICD Code: Z98.890 - OTHER SPECIFIED POSTPROCEDURAL STATES; Z87.81 - PERSONAL HISTORY OF (HEALED) TRAUMATIC FRACTURE Status: Acute Current Visit: Yes Problem Details: Right Greater Trochanter - Patient Summary/Data Operative Procedure(s) Performed: Right Greater Trochanter Fixation Consults: Consultations 03/20/20 13:42 Consult to Case Management/Solar Sales Manager [CONS] Routine Comment: Physician Instructions: Service(s) to be Consulted: Case Management Reason for Consult: Plan for Discharge Special Instructions: status post right greater trochanteric fixation PT Evaluation and Treatment [CONS] Routine Please Evaluate and Treat. PT Reason for Consult: Post op Ortho Surgery Special Instructions: s/p right greater trochanteric fixation WBAT This query below is only for informational purposes and is not editable. PT Evaluation and Treatment [CONS] Routine Please Evaluate and Treat. PT Reason for Consult: Post op Ortho Surgery Knee Pending Discharge: Yes, 1- 2 days Special Instructions: Schedule first outpatient PT appointment in 3-5 day post discharge. This query below is only for informational purposes and is not editable. Recommended Follow-up Testing/Procedures: Follow up with orthopedic clinic in 2 weeks Hospital Course: Underwent fixation of right greater trochanter on 03/20/20 with no complications, tolerated surgery well. Was ambulating with FWW on POD#1 and able to complete stairs on POD#2. Able to perform ADLs independently. Pain was controlled with PO medications, Percocet caused some nausea and Zofran was utilized. Hilton administered and seemed to manage patients pain with less nausea than Percocet. Valderrama removed on POD#1. On POD#2, temperature at 100.4 in addition to nursing report of chills and skin surrounding dressing site warm, red, and firm. Additional Cefazolin was administered while in the hospital. Provider exam of incision on POD#2 revealed intact incision, mild warmth to touch, with no surrounding erythema or drainage. Provider exam of incision site on POD#3 revealed intact incision, no warmth, surrounding erythema, or drainage. Patient expressed readiness to go home today. - Patient Instructions Diet: Regular Diet as Tolerated Activity: Apply Ice, As Tolerated, Elevate Extremity, Full Weight Bearing Showering/Bathing: Shower in AM Wound/Incision Care: Keep Operative Site/Wound Site Clean and Dry Notify Provider of: Fever, Increased Pain, Swelling and Redness, Drainage - Discharge Plan *PRESCRIPTION DRUG MONITORING PROGRAM REVIEWED*: Not Applicable *COPY OF PRESCRIPTION DRUG MONITORING REPORT IN PATIENT APOLLO: Not Applicable Prescriptions/Med Rec: Aspirin 325 mg PO BID 14 Days #28 tablet Acetaminophen/HYDROcodone [Hilton 325-5 MG] 1 - 2 tab PO Q6H PRN 7 Days #40 tab PRN Reason: Pain Home Medications: Home Meds LORazepam [Ativan] 0.5 mg PO Q8H PRN 04/09/17 [History] hydroCHLOROthiazide [Hydrochlorothiazide] 25 mg PO DAILY 04/09/17 [History] traZODone 50 mg PO BEDTIME PRN 04/09/17 [History] lisinopriL [Lisinopril] 45 mg PO DAILY 03/20/20 [History] Acetaminophen/HYDROcodone [Hilton 325-5 MG] 1 - 2 tab PO Q6H PRN 7 Days #40 tab 03/23/20 [Rx] Aspirin 325 mg PO BID 14 Days #28 tablet 03/23/20 [Rx] Oxygen Therapy Mode: Room Air Patient Handouts: Total Hip Replacement, [id number], Aspirin, ASA oral tablets, Deep Vein Thrombosis, Preventing Constipation After Surgery Referrals: Andreas Delgado MD [Physician] - 04/04/20 10:30 am (Please arrive 15 minutes early to register for your appointment.) Kaitlin Mcdonough PT [Physical Therapist] - 03/27/20 1:00 pm (Please arrive 30 minutes early to register and complete paperwork prior to your physical therapy appointment.) - Discharge Summary/Plan Comment DC Time >30 min.: No Discharge Summary/Plan Comment: Anticipate discharge to home this afternoon with outpatient physical therapy orders. Incision inspection prior to discharge; intact, no drainage or erythema surrounding site. Patient instructed she may shower today and let steristrips fall off on their own. Script sent for 1 week supply of pain medication. Patient to follow up with orthopedic clinic in 2 weeks. Patient instructed to take 2 baby Aspirins per day until seen at 2-week follow up appointment. Advised to call the ortho clinic if concerns or questions arise prior to scheduled appointment. Patient agreeable and expressed understanding of this plan. - General Info Date of Service: 03/23/20 Functional Status: Reports: Pain Controlled, Tolerating Diet, Ambulating, Urinating - Review of Systems General: Reports: No Symptoms HEENT: Reports: No Symptoms Pulmonary: Reports: No Symptoms Cardiovascular: Reports: No Symptoms Gastrointestinal: Reports: Nausea Genitourinary: Reports: No Symptoms Musculoskeletal: Reports: Leg Pain (right) Skin: Reports: No Symptoms Neurological: Reports: No Symptoms Psychiatric: Reports: No Symptoms - Patient Data Vitals - Most Recent: Last Vital Signs Temp 98.8 F 03/23/20 08:17 Pulse 71 03/23/20 08:17 Resp 20 03/23/20 08:17 BP 115/53 L 03/23/20 08:50 Pulse Ox 100 03/23/20 08:17 Weight - Most Recent: 158 lb 14.406 oz I&O - Last 24 hours: Intake & Output 03/22/20 03/23/20 03/23/20 22:59 06:59 14:59 Intake Total 50 50 360 Balance 50 50 360 Med Orders - Current: Current Medications Acetaminophen (Tylenol) 650 mg PO Q4H PRN PRN Reason: Pain/Fever Last Admin: 03/23/20 04:12 Dose: 650 mg Documented by: Hydrocodone Bitart/Acetaminophen (Hilton 325-5 Mg) 1 tab PO Q4H PRN PRN Reason: Pain Last Admin: 03/21/20 14:56 Dose: 1 tab Documented by: Bandage/Support Products ( Nasal Experimental Aircraft Mechanic) 1 applic NASBOTH BID [facility] Stop: 03/26/20 21:01 Last Admin: 03/23/20 08:46 Dose: 1 applic Documented by: Docusate Sodium (Colace) 100 mg PO BID [facility] Last Admin: 03/23/20 08:48 Dose: 100 mg Documented by: Enoxaparin Sodium (Lovenox) 30 mg SUBCUT DAILY [facility] Last Admin: 03/23/20 08:47 Dose: 30 mg Documented by: Hydrochlorothiazide (Hydrochlorothiazide) 25 mg PO DAILY [facility] Last Admin: 03/23/20 08:46 Dose: 25 mg Documented by: Cefazolin Sodium/Dextrose 1 gm (/ Premix) 50 mls @ 100 mls/hr IV Q8H [facility] Stop: 03/24/20 04:29 Last Admin: 03/23/20 03:20 Dose: 100 mls/hr Documented by: Lisinopril (Prinivil) 40 mg PO DAILY [facility] Last Admin: 03/23/20 08:49 Dose: 40 mg Documented by: Lisinopril (Prinivil) 5 mg PO DAILY [facility] Last Admin: 03/23/20 08:50 Dose: 5 mg Documented by: Lorazepam (Ativan) 0.5 mg PO Q8H PRN PRN Reason: Anxiety Magnesium Hydroxide (Milk Of Magnesia) 30 ml PO BID PRN PRN Reason: Constipation Morphine Sulfate (Morphine) 1 mg IVPUSH Q1H PRN PRN Reason: Breakthrough Pain Ondansetron HCl (Zofran) 4 mg IVPUSH Q4H PRN PRN Reason: Nausea/Vomiting Last Admin: 03/23/20 08:11 Dose: 4 mg Documented by: Oxycodone/Acetaminophen (Percocet 325-5 Mg) 1 tab PO Q4H PRN PRN Reason: Pain Last Admin: 03/21/20 07:09 Dose: 1 tab Documented by: Trazodone HCl (Trazodone) 50 mg PO ONETIME PRN PRN Reason: Sleep Last Admin: 03/20/20 21:04 Dose: 50 mg Documented by: Discontinued Medications Hydrocodone Bitart/Acetaminophen (Hilton 325-5 Mg) 1 tab PO Q6H PRN PRN Reason: Pain Docusate Sodium (Colace) 100 mg PO BID [facility] Enoxaparin Sodium (Lovenox) 30 mg SUBCUT DAILY [facility] Fentanyl (Sublimaze) Confirm Administered Dose 100 mcg .ROUTE .STK-MED ONE Stop: 03/20/20 08:56 Hydrochlorothiazide (Hydrochlorothiazide) 25 mg PO DAILY [facility] Lactated Ringer's (Ringers, Lactated) 1,000 mls @ 75 mls/hr IV ASDIRECTED [facility] Last Admin: 03/20/20 08:42 Dose: 75 mls/hr Documented by: Cefazolin Sodium 2 gm/ (Dextrose/Water) 100 mls @ 200 mls/hr IV ONETIME [facility] Stop: 03/20/20 09:59 Last Admin: 03/20/20 10:57 Dose: 200 mls/hr Documented by: Lactated Ringer's (Ringers, Lactated) Confirm Administered Dose 1,000 mls @ as directed .ROUTE .STK-MED ONE Stop: 03/20/20 12:07 Cefazolin Sodium 1 gm/ Sodium (Chloride) 50 mls @ 200 mls/hr IV Q8H [facility] Stop: 03/21/20 05:59 Last Admin: 03/20/20 15:40 Dose: Not Given Documented by: Sodium Chloride (Normal Saline) 1,000 mls @ 125 mls/hr IV ASDIRECTED [facility] Last Admin: 03/21/20 00:23 Dose: 125 mls/hr Documented by: Cefazolin Sodium/Dextrose 1 gm (/ Premix) 50 mls @ 100 mls/hr IV Q8H [facility] Stop: 03/21/20 10:29 Last Admin: 03/21/20 10:16 Dose: 100 mls/hr Documented by: Ketorolac Tromethamine (Toradol) 30 mg IVPUSH Q6H [facility] Stop: 03/21/20 19:46 Last Admin: 03/20/20 15:40 Dose: Not Given Documented by: Ketorolac Tromethamine (Toradol) 30 mg IVPUSH Q6H [facility] Stop: 03/21/20 22:01 Last Admin: 03/21/20 21:40 Dose: 30 mg Documented by: Midazolam HCl (Versed 1 Mg/Ml) Confirm Administered Dose 2 mg .ROUTE .STK-MED ONE Stop: 03/20/20 08:56 Morphine Sulfate (Morphine) 2 mg IVPUSH ONETIME [facility] Stop: 03/20/20 13:50 Last Admin: 03/20/20 13:54 Dose: 2 mg Documented by: Non-Formulary Medication (Lisinopril [Lisinopril]) 45 mg PO DAILY [facility] Oxycodone/Acetaminophen (Percocet 325-5 Mg) 1 tab PO Q6H PRN PRN Reason: Pain Last Admin: 03/20/20 16:50 Dose: 1 tab Documented by: Propofol (Diprivan 20 Ml) Confirm Administered Dose 200 mg .ROUTE .STK-MED ONE Stop: 03/20/20 08:56 Propofol (Diprivan 20 Ml) Confirm Administered Dose 200 mg .ROUTE .STK-MED ONE Stop: 03/20/20 11:59 - Exam General: Reports: Alert, Oriented, Cooperative Extremities: Leg Pain (mild on right ), Limited Range of Motion Skin: Reports: Dry, Intact Wound/Incisions: Reports: Healing Well, Dressing Dry and Intact, No Drainage Neurological: Reports: No New Focal Deficit Psy/Mental Status: Reports: Alert, Normal Affect, Normal Mood
--- NOTE | 2020-03-28 19:45 | OR ---
DATE OF PROCEDURE: 03/20/2020 SURGEON: Andreas Delgado MD PREOPERATIVE DIAGNOSIS: Trochanteric nonunion, right hip. POSTOPERATIVE DIAGNOSIS: Trochanteric nonunion, right hip. PROCEDURE: Open reduction and internal fixation, right greater trochanter. HEATER PLANER OPERATOR: MINDA Serrano. ANESTHESIA: Spinal with sedation. INDICATIONS: Heather is a very pleasant 69-year-old female who underwent a revision of right total hip arthroplasty with a trochanteric osteotomy. The osteotomy went on to nonunion, and she has been having persistent difficulty with pain, weakness, and limp. She now presents for fixation of the greater trochanter. The risks, benefits, and potential complications of the procedure were discussed. registered medical assistant by a PA was needed for retraction and assistance in positioning the hardware. DESCRIPTION OF PROCEDURE: After adequate anesthesia was obtained, the patient was placed in the lateral decubitus position and secured with the beanbag positioner. The right hip and leg were then prepped and draped in a sterile fashion. Previous incision was utilized and carried down through the subcutaneous tissues to the tensor fascia. The repair of the tensor fascia was identified by the Ethibond sutures. This was divided in line with its fibers, and the sutures were removed. Some significant scar tissue was present between the tensor fascia and the underlying vastus lateralis and greater trochanter. This was freed up with Bovie electrocautery both anteriorly and posteriorly, and a Charnley retractor was placed. The level of the nonunion was identified, and using combination of a Atherton elevator, curette, osteotome, and Gleason the fibrous tissue was cleared from the nonunion site. Fracture was held reduced in position with a large towel clip, and a Slim greater trochanteric fixation plate was utilized. This was tapped into the tip of the greater trochanter and then secured initially down along the shaft with 2 cable supervisor nut processing. An additional basin operator was placed more proximally up around the neck of the prosthesis. The cables were then tensioned working from proximal to distal and secured with the set screw and cut. Prior to completely tensioning the cables, crushed cancellous bone graft was placed within the fracture site. Once the cables were tensioned and cut, some additional graft was packed in the more posterior aspect. Excellent fixation was obtained. The hip was irrigated and the tensor fascia was then closed in a running locking fashion with #2 Ethibond. Skin was closed with 2-0 Vicryl and a running 3-0 Monocryl. Steri-Strips were applied. Sterile dressing was then placed. The patient tolerated procedure well. There were no complications. She was taken from the operating room in stable condition. Andreas Delgado MD /[id number]
== END 2020-03-23 14:05 | disposition home or self-care (01) | DRG 482 ==
LOC: JP.SDS 07:56 → EDSTATUS 08:30 → JP.MS 15:20
PROVIDERS: ADMIT Specialist; ATTEND Specialist
PROC: 0QS604Z Reposition Right Upper Femur with Internal Fixation Device, Open Approach (ICD-10-PCS; principal; 2020-03-20)
DX: S72.111K Displaced fracture of greater trochanter of right femur, subsequent encounter for closed fracture with nonunion (principal); R50.9 Fever, unspecified; F41.9 Anxiety disorder, unspecified; E86.0 Dehydration; F32.9 Major depressive disorder, single episode, unspecified; I10 Essential (primary) hypertension; G47.00 Insomnia, unspecified; Z86.73 Personal history of transient ischemic attack (TIA), and cerebral infarction without residual deficits; Z88.2 Allergy status to sulfonamides; Z79.899 Other long term (current) drug therapy
CPT/HCPCS: 36415; 72170; 72170-26; 80048; 85027; 97110-GP; 97116-GP; 97161-GP; 97530-GP; A9270-GY; J0690; J1650; J1885; J2250; J2270; J2405; J2704; J3010; J7030; J7060; J7120

== ENCOUNTER 2020-10-29 03:06 | Emergency (ER) | payer MEDICARE ==
--- NOTE | 2020-10-29 03:13 | EDM.PDOC ---
ED HPI GENERAL MEDICAL PROBLEM - General Chief Complaint: Syncope Stated Complaint: MEDICAL [facility] [place] Time Seen by Provider: 10/29/20 03:09 Source of Information: Reports: Patient, EMS History Limitations: Reports: No Limitations - History of Present Illness INITIAL COMMENTS - FREE TEXT/NARRATIVE: Heather is a 70-year-old female brought in by [facility] for evaluation of syncopal episode. Patient was in her usual state of health until around 3 AM this morning when she got up to use the bathroom. Her was snoring loudly so she decided she was going to take one of her trazodone 50 mg tablets to help her with sleep. For some reason unbeknownst to any of us, she decided to minutes later that she needed to take her trazodone 50 mg and took a second dose causing her to feel nauseous, shaky, diaphoretic, and causing her to have a syncopal episode. EMS was called and upon their arrival she was pale, diaphoretic, and had a blood pressure of 90/52 mmHg. While they were assessing her they rechecked her blood sugar which was 169 and a recheck of her blood pressure was a 76/57. By the time EMS got her out to the ambulance her pressure had normalized and she was starting to feel better. In addition to the trazodone the patient is also on lisinopril, hydrochlorothiazide, meloxicam and lorazepam as needed. Patient recalls that she has 2 different bottles of trazodone, the first is 50 mg which was filled in 2017 and the second was just filled on 10/22/2020 for 100 mg. She recalls that she took a 50 mg tablet initially and then forgot that she had taken that in 2 minutes later took 100 mg tablet. When she realized what she had done it made her very anxious, she started develop some nausea and she started to panic which likely precipitated the onset of her symptoms of lightheadedness, diaphoresis, and then near syncope. - Related Data Allergies Allergy/AdvReac Type Severity Reaction Status Date / Time sulfamethoxazole Allergy Nausea Verified 07/12/20 11:38 trimethoprim Allergy Nausea Verified 07/12/20 11:38 [From Sulfamethoxazole-Trimethoprim] Home Meds: Home Meds LORazepam [Ativan] 0.5 mg PO Q8H PRN 04/09/17 [History] hydroCHLOROthiazide [Hydrochlorothiazide] 25 mg PO DAILY 04/09/17 [History] traZODone 1 tab PO BEDTIME PRN 04/09/17 [History] lisinopriL [Lisinopril] 45 mg PO DAILY 03/20/20 [History] Cetirizine [ZyrTEC] 10 mg PO DAILY 04/24/20 [History] Triamcinolone Acetonide [Triamcinolone Acetonide 0.1% Crm] 1 applic TOP BID 04/24/20 [History] Meloxicam 15 mg PO DAILY #30 tablet 08/10/20 [Rx] Past Medical History HEENT History: Reports: Impaired Vision Other HEENT History: wears glasses Cardiovascular History: Reports: Hypertension Respiratory History: Reports: None Gastrointestinal History: Reports: None Genitourinary History: Reports: None [employer] History: Reports: Musculoskeletal History: Reports: Arthritis, Other (See Below) Other Musculoskeletal History: 08/10/19 R hip pain/tingling/numbness. R knee pain. s/p right total hip Neurological History: Reports: TIA Psychiatric History: Reports: Anxiety Endocrine/Metabolic History: Reports: None Hematologic History: Reports: None Immunologic History: Reports: None Oncologic (Cancer) History: Reports: None Dermatologic History: Reports: None - Infectious Disease History Infectious Disease History: Reports: Chicken Pox, Novel Coronavirus - Past Surgical History HEENT Surgical History: Reports: None Cardiovascular Surgical History: Reports: None Female Surgical History: Reports: Tubal Ligation Musculoskeletal Surgical History: Reports: Hip Replacement, Shoulder Surgery Other Musculoskeletal Surgeries/Procedures:: s/p right total hip. s/p R hip revision 02/03/19. s/p R ORIF great trochanter 03/20/20 Social & Family History - Family History Respiratory: Reports: Other (See Below) Other Respiratory Family Hisory: asbestos Musculoskeletal: Reports: Arthritis - Caffeine Use Caffeine Use: Reports: Coffee ED ROS GENERAL - Review of Systems Review Of Systems: See Below Constitutional: Reports: No Symptoms HEENT: Reports: No Symptoms Respiratory: Reports: No Symptoms Cardiovascular: Reports: Syncope Endocrine: Reports: No Symptoms GI/Abdominal: Reports: Nausea : Reports: No Symptoms Musculoskeletal: Reports: No Symptoms Skin: Reports: Pallor, Diaphoresis Neurological: Reports: Dizziness (Lightheadedness), Syncope, Trouble Speaking (Word finding difficulty and slurring of words) Psychiatric: Reports: No Symptoms Hematologic/Lymphatic: Reports: No Symptoms Immunologic: Reports: No Symptoms - Physical Exam Exam: See Below Exam Limited By: No Limitations General Appearance: Alert, No Apparent Distress Eye Exam: Bilateral Eye: EOMI, PERRL Throat/Mouth: Normal Inspection, Normal Lips, Normal Oropharynx, Normal Voice, No Airway Compromise Head Exam: Atraumatic, Normocephalic Neck: Normal Inspection, Supple, Non-Tender, Full Range of Motion. No: Carotid Bruit Respiratory/Chest: No Respiratory Distress, Lungs Clear, Normal Breath Sounds Cardiovascular: Normal Peripheral Pulses, Regular Rate, Rhythm, No Murmur GI/Abdominal: Normal Bowel Sounds, Soft, Non-Tender Neuro Exam (Abbreviated): Alert, Oriented, CN II-XII Intact, Normal Cognition, No Motor/Sensory Deficits Back Exam: Normal Inspection, Full Range of Motion Extremities: Normal Inspection, Normal Range of Motion, No Pedal Edema, Normal Capillary Refill Psychiatric: Normal Affect, Normal Mood Skin Exam: Warm, Dry, Normal Color. No: Diaphoretic, Pallor Course - Vital Signs Last Recorded V/S: Last Vital Signs Temp 35.6 C L 10/29/20 03:28 Pulse 56 L 10/29/20 03:36 Resp 16 10/29/20 03:36 BP 160/55 H 10/29/20 03:36 Pulse Ox 98 10/29/20 03:36 - Orders/Labs/Meds Orders: Active Orders 24 hr Category Date Time Status EKG Documentation Completion [RC] ASDIRECTED Care 10/29/20 03:19 Active EKG 12 Lead [EK] Routine Ther 10/29/20 03:19 Ordered Labs: Laboratory Tests 10/29/20 10/29/20 Range/Units 03:31 03:31 WBC 11.0 (4.5-11.0) K/uL RBC 4.48 (3.30-5.50) M/uL Hgb 12.9 D (12.0-15.0) g/dL Hct 39.3 (36.0-48.0) % MCV 88 (80-98) fL MCH 29 (27-31) pg MCHC 33 (32-36) % Plt Count 256 (150-400) K/uL Neut % (Auto) 77.4 H (36-66) % Lymph % (Auto) 16.3 L (24-44) % [place] % (Auto) 4.4 (2-6) % Eos % (Auto) 1.5 L (2-4) % Baso % (Auto) 0.4 (0-1) % Sodium 142 (140-148) mmol/L Potassium 3.5 L (3.6-5.2) mmol/L Chloride 105 (100-108) mmol/L Carbon Dioxide 26 (21-32) mmol/L Anion Gap 14.5 H (5.0-14.0) mmol/L BUN 23 H (7-18) mg/dL Creatinine 1.0 (0.6-1.0) mg/dL Est Cr Clr Drug Dosing 42.06 mL/min Estimated GFR (MDRD) 55 L (>60) Glucose 162 H (74-106) mg/dL Calcium 9.2 (8.5-10.1) mg/dL Troponin I < 0.017 (0.000-0.056) ng/mL - Re-Assessments/Exams Free Text/Narrative Re-Assessment/Exam: 10/29/20 04:08 I reviewed the patient's labs showing a leukocyte count of 11.0 with a normal differential. Hemoglobin of 12.9, hematocrit of 39.3, and platelet count of 256,000. Basic metabolic panel is normal with the exception of a potassium of 3.5. The patient's glucose is 162 and the GFR is calculated at 55. Troponin is negative at less than 0.017. EKG shows normal sinus rhythm with a rate of 60 bpm. Normal NV interval. Normal QRS morphology. Normal axis. Overall normal EKG. In review, it sounds like the patient mistakenly took 150 mg of trazodone causing her to become nervous, anxious, once she realized that she had overdone her dosage. This in turn made her more nauseous and likely activated her vagus nervous system causing a vasovagal episode. This in turn caused hypoperfusion of the brain which caused her to "lorenzana out" and slumped to the ground. This was evidenced by her continued hypotension while EMS arrived. The sympathetic nervous system counteracted it and by the time she was brought out to the ambulance she had already started to recover. I think that the vasovagal episode is likely was responsible for her garbled speech and difficulty with being able to communicate. The patient's blood sugar was 162 so is unlikely that she was hypoglycemic. Her EKG is normal so there is no evidence for a block or tachyarrhythmia and her labs otherwise are unremarkable. In the future, she will do a better job of keeping an eye on what medication she is taking. At this time I think the patient has been stable and is suitable for discharge. Indications return to the ED were discussed. Departure - Departure Time of Disposition: 04:11 Disposition: Home, Self-Care 01 Clinical Impression: Vasovagal near syncope - Discharge Information Instructions: Near-Syncope Referrals: PCP,None [Primary Care Provider] - Forms: ED Department Discharge Care Plan Goals: In the future I would recommend not taking more than 100 mg of trazodone each night. Your symptoms today were likely due to a sudden drop in your blood pressure due to not only the administration of trazodone 150 mg by mouth but also by the realization that you had made an error and became increasingly anxious, nauseous, and this in turn precipitated activation of the vagus nerve causing a sudden drop in your blood pressure and causing you to nearly pass out. Your blood work today is remarkably good and her EKG is also normal at this time. I think that at this time you are suitable to go home and get some sleep. Sepsis Event Note (ED) - Focused Exam Vital Signs: Vital Signs Temp Pulse Resp BP Pulse Ox 10/29/20 03:36 56 L 16 160/55 H 98 10/29/20 03:28 35.6 C L 61 16 150/65 H 99 10/29/20 03:12 60 16 150/66 H 97 10/29/20 03:11 63 16 170/61 H 98 10/29/20 03:10 59 L 16 161/65 H 98 10/29/20 03:08 35.6 C L 61 16 150/65 H 99 - Problem List & Annotations (1) Vasovagal near syncope SNOMED Code(s): 667321103 Code(s): R55 - SYNCOPE AND COLLAPSE Status: Acute Priority: Medium Current Visit: Yes - Problem List Review Problem List Initiated/Reviewed/Updated: Yes - My Orders Last 24 Hours: My Active Orders 10/29/20 03:19 EKG Documentation Completion [RC] ASDIRECTED EKG 12 Lead [EK] Routine - Assessment/Plan Last 24 Hours: My Active Orders 10/29/20 03:19 EKG Documentation Completion [RC] ASDIRECTED EKG 12 Lead [EK] Routine
== END 2020-10-29 04:25 | disposition home or self-care (01) ==
LOC: JP.ED 03:06
DX: R55 Syncope and collapse (principal); I10 Essential (primary) hypertension; Z88.2 Allergy status to sulfonamides; Z79.899 Other long term (current) drug therapy; Z86.16 Personal history of COVID-19
CPT/HCPCS: 36415; 80048; 84484; 85025; 93005; 99284-25

== ENCOUNTER 2021-06-04 07:58 | Day surgery (SDC) | payer MEDICARE ==
[2021-06-04] MEDS ORDERED: fentaNYL 250 MCG/5 ML SDV ONE ×2 (08:17→10:56)
[2021-06-04] MEDS ORDERED: Neostigmine Methylsulfate 1 MG/ML 5 ML Syringe ONE (08:18)
[2021-06-04] MEDS ORDERED: Succinylcholine 200 MG/10 ML MDV ONE (08:18)
[2021-06-04] MEDS ORDERED: Dexamethasone 4 MG/ML SDV ONE (08:18)
[2021-06-04] MEDS ORDERED: Ondansetron 4 MG/2 ML SDV ONE (08:18)
[2021-06-04] MEDS ORDERED: Propofol 200 MG/20 ML SDV ONE (08:18)
[2021-06-04] MEDS ORDERED: Rocuronium 50 MG/5 ML Vial ONE (08:18)
[2021-06-04] MEDS ORDERED: Glycopyrrolate 0.2 MG/ML 5 ML MDV ONE (08:18)
[2021-06-04] MEDS ORDERED: Lactated Ringers 1,000 ML IV SCH (08:30)
[2021-06-04] MEDS ORDERED: ceFAZolin 2 GM in Premix Bag 1 BAG IV ONE (08:30)
[2021-06-04] MEDS: Nozin Nasal Sanitizer NASBOTH SCH ×2 (08:51→21:27)
[2021-06-04] MEDS ORDERED: Lactated Ringers 1,000 ML ONE (11:53)
[2021-06-04] MEDS ORDERED: Bupivacaine 0.5% 50 ML MDV ONE (12:04)
[2021-06-04] MEDS ORDERED: traMADol 50 MG Tab PO PRN (12:14)
[2021-06-04] MEDS ORDERED: Ondansetron 4 MG/2 ML SDV IVPUSH PRN (12:14)
[2021-06-04] MEDS ORDERED: Sodium Chloride 0.9% 1,000 ML IV SCH (12:15)
[2021-06-04] MEDS ORDERED: LORazepam 1 MG Tab PO PRN (12:19)
[2021-06-04] MEDS ORDERED: HYDROmorphone 0.5 MG/0.5 ML Syringe IVPUSH PRN (12:20)
[2021-06-04] MEDS ORDERED: Acetaminophen/oxyCODONE 325-5 MG Tab PO PRN (12:20)
[2021-06-04] MEDS ORDERED: Morphine 2 MG/ML SYRINGE IVPUSH ONE (12:21)
[2021-06-04] MEDS ORDERED: traZODone 50 MG Tab PO PRN (12:30)
[2021-06-04] MEDS: Ketorolac 30 MG/ML SDV IVPUSH SCH ×2 (13:35→21:30)
[2021-06-04] MEDS: Acetaminophen 325 MG Tab PO SCH ×2 (13:37→21:26)
[2021-06-04] MEDS: ceFAZolin 1 GM in Premix Bag 1 BAG IV SCH (17:34)
[2021-06-04] MEDS ORDERED: Nozin Nasal Sanitizer NASBOTH SCH (21:00)
[2021-06-04] MEDS: Docusate Sodium 100 MG Cap PO SCH (21:29)
[2021-06-04] MEDS: Aspirin 325 MG Tab.EC PO SCH (21:29)
[2021-06-05] MEDS: Acetaminophen 325 MG Tab PO SCH ×2 (01:25→07:08)
[2021-06-05] MEDS: ceFAZolin 1 GM in Premix Bag 1 BAG IV SCH (01:25)
[2021-06-05] MEDS: Aspirin 325 MG Tab.EC PO SCH (08:36)
[2021-06-05] MEDS: Nozin Nasal Sanitizer NASBOTH SCH (08:36)
[2021-06-05] MEDS: Docusate Sodium 100 MG Cap PO SCH (08:36)
[2021-06-05] MEDS ORDERED: Lisinopril 10 MG Tab PO SCH (09:00)
[2021-06-05] MEDS ORDERED: Hydrochlorothiazide 25 MG Tab PO SCH (09:00)
== END 2021-06-05 11:10 | disposition home or self-care (01) ==
LOC: JP.SDS 07:58 → JP.ICU 12:15 → JP.SDS 06-05 11:10
PROVIDERS: ATTEND Specialist
DX: T84.84XA Pain due to internal orthopedic prosthetic devices, implants and grafts, initial encounter (principal); I10 Essential (primary) hypertension; D64.9 Anemia, unspecified; Z88.2 Allergy status to sulfonamides; Z88.0 Allergy status to penicillin; Z96.641 Presence of right artificial hip joint; Z98.890 Other specified postprocedural states; Z79.899 Other long term (current) drug therapy; Z86.73 Personal history of transient ischemic attack (TIA), and cerebral infarction without residual deficits; Y83.1 Surgical operation with implant of artificial internal device as the cause of abnormal reaction of the patient, or of later complication, without mention of misadventure at the time of the procedure
CPT/HCPCS: 36415; 80053; 85027; 97110-GP; 97116-GP; 97161-GP; A9270-GY; C1713; J0330; J0690; J1100; J1885; J2270; J2405; J2704; J2710; J3010; J3490; J7120

== ENCOUNTER 2021-09-29 16:00 | Emergency (ER) | payer MEDICARE | END 2021-09-29 17:14 | disposition home or self-care (01) | LOC: JP.ED 16:00 | DX: T81.49XA Infection following a procedure, other surgical site, initial encounter (principal); L03.312 Cellulitis of back [any part except buttock and flank]; I10 Essential (primary) hypertension; Z86.16 Personal history of COVID-19; Z79.899 Other long term (current) drug therapy; Z88.2 Allergy status to sulfonamides | CPT/HCPCS: 99281; 99283 ==

== ENCOUNTER 2022-08-25 07:42 | Emergency (ER) | payer MEDICARE ==
[2022-08-25] MEDS ORDERED: HYDROmorphone 0.5 MG/0.5 ML Syringe IM ONE (08:16)
[2022-08-25] MEDS ORDERED: Ketorolac 15 MG/ML SDV IM ONE (09:36)
[2022-08-25] MEDS ORDERED: Methocarbamol 500 MG Tab PO ONE (09:51)
== END 2022-08-25 10:21 | disposition home or self-care (01) ==
LOC: JP.ED 07:42
DX: S39.012A Strain of muscle, fascia and tendon of lower back, initial encounter (principal); M51.16 Intervertebral disc disorders with radiculopathy, lumbar region; I10 Essential (primary) hypertension; Z86.16 Personal history of COVID-19; Z88.2 Allergy status to sulfonamides; Z91.048 Other nonmedicinal substance allergy status; Z79.899 Other long term (current) drug therapy; Z96.641 Presence of right artificial hip joint
CPT/HCPCS: 72131; 76377; 96372; 99284; A9270; J1170; J1885

== ENCOUNTER 2022-10-17 17:43 | Emergency (ER) | payer MEDICARE | END 2022-10-17 19:23 | disposition home or self-care (01) | LOC: JP.ED 17:43 | DX: S52.571A Other intraarticular fracture of lower end of right radius, initial encounter for closed fracture (principal); S52.611A Displaced fracture of right ulna styloid process, initial encounter for closed fracture; I10 Essential (primary) hypertension; Z88.1 Allergy status to other antibiotic agents; Z91.09 Other allergy status, other than to drugs and biological substances; Z88.8 Allergy status to other drugs, medicaments and biological substances; Z86.16 Personal history of COVID-19; W01.0XXA Fall on same level from slipping, tripping and stumbling without subsequent striking against object, initial encounter | CPT/HCPCS: 29125; 73110-26-RT; 73110-RT; 99282; 99283 ==

== ENCOUNTER 2023-01-22 07:12 | Day surgery (SDC) | payer MEDICARE ==
[2023-01-22 07:09] LABS: A/G RATIO 1.2 (1.2-2.2); ALANINE AMINOTRANSFERASE,ALT 14 U/L (12-78); ALBUMIN 3.6 g/dL (3.4-5.0); ALKALINE PHOSPHATASE 76 U/L (46-116); ANION GAP 10.1 mmol/L (5.0-14.0); ASPARTATE AMNIOTRANSFERASE,AST 15 U/L (15-37); BILIRUBIN TOTAL 0.3 mg/dL (0.2-1.0); BLOOD UREA NITROGEN,BUN 20 mg/dL (7-18); CALCIUM 9.3 mg/dL (8.5-10.1); CARBON DIOXIDE,CO2 27 mmol/L (21-32); CHLORIDE,CL 105 mmol/L (100-108); CREATININE 0.9 mg/dL (0.6-1.0); ESTIMATED GFR 67 mL/min (>60); GLUCOSE RANDOM 114 mg/dL (74-106); POTASSIUM,K 3.6 mmol/L (3.6-5.2); PROTEIN TOTAL,TP 6.5 g/dL (6.4-8.2); SODIUM,NA 142 mmol/L (140-148)
[~2023-01-22 07:12] MED LIST changes: +Bupivacaine 0.5% 30 ML SDV ONE; +Lactated Ringers 1,000 ML IV SCH; -Midazolam 1 MG/ML 2 ML SDV ONE; +Nozin Nasal Sanitizer NASBOTH ONE; -Propofol 200 MG/20 ML SDV ONE; -fentaNYL 100 MCG/2 ML SDV ONE
[2023-01-22] MEDS ORDERED: ceFAZolin 1 GM in Premix Bag 1 BAG IV ONE (07:30)
[2023-01-22] MEDS ORDERED: Propofol 200 MG/20 ML SDV ONE (07:43)
[2023-01-22] MEDS ORDERED: Midazolam 1 MG/ML 2 ML SDV ONE (07:43)
[2023-01-22] MEDS ORDERED: fentaNYL 100 MCG/2 ML SDV ONE (07:43)
[2023-01-22] MEDS ORDERED: Lidocaine 0.5% 50 ML SDV ONE (07:45)
[2023-01-22 07:47] LABS: HEMATOCRIT 40.3 % (34.3-46.0); HEMOGLOBIN 13.6 g/dL (11.2-15.5); MEAN CORPUSCULAR HEMOGLOBIN 30.2 pg (31.6-35.5); MEAN CORPUSCULAR HGB CONC 33.7 g/dL (31.6-35.5); MEAN CORPUSCULAR VOLUME 89.4 fL (81.4-99.0); RED BLOOD CELL COUNT 4.51 M/uL (3.77-5.24); WHITE BLOOD CELL COUNT,WBC 8.7 K/uL (3.2-11.0)
[2023-01-22] MEDS ORDERED: Acetaminophen/HYDROcodone 325-5 MG Tab PO ONE (09:39)
== END 2023-01-22 10:00 | disposition home or self-care (01) ==
LOC: JP.SDS 07:12
PROVIDERS: ATTEND Specialist
DX: G56.01 Carpal tunnel syndrome, right upper limb (principal); M65.831 Other synovitis and tenosynovitis, right forearm; I10 Essential (primary) hypertension; F41.9 Anxiety disorder, unspecified; M19.90 Unspecified osteoarthritis, unspecified site; Z88.8 Allergy status to other drugs, medicaments and biological substances; Z88.2 Allergy status to sulfonamides
CPT/HCPCS: 36415; 80053; 85027; A9270-GY; J0690; J2250; J2704; J3010; J3490; J7120

== ENCOUNTER 2023-03-27 14:35 | Emergency (ER) | payer MEDICARE | END 2023-03-27 15:53 | disposition home or self-care (01) | LOC: JP.ED 14:35 | DX: F41.9 Anxiety disorder, unspecified (principal); M79.2 Neuralgia and neuritis, unspecified | CPT/HCPCS: 99283 ==

== ENCOUNTER 2024-06-14 06:33 | Day surgery (SDC) | payer MEDICARE ==
[2024-06-14] MEDS ORDERED: Lidocaine 0.5% 50 ML SDV ONE (06:52)
[2024-06-14] MEDS ORDERED: Propofol 200 MG/20 ML SDV ONE (06:52)
[2024-06-14] MEDS ORDERED: Midazolam 1 MG/ML 2 ML SDV ONE (06:53)
[2024-06-14] MEDS ORDERED: fentaNYL 100 MCG/2 ML SDV ONE (06:53)
[2024-06-14 06:57] LABS: HEMOGLOBIN 14.3 g/dL (11.2-15.5); MEAN CORPUSCULAR HEMOGLOBIN 30.4 pg (31.6-35.5); MEAN CORPUSCULAR VOLUME 89.4 fL (81.4-99.0); RED BLOOD CELL COUNT 4.7 M/uL (3.77-5.24); WHITE BLOOD CELL COUNT,WBC 8.2 K/uL (3.2-11.0)
[2024-06-14] MEDS: Nozin Nasal Sanitizer NASBOTH ONE (07:19)
[2024-06-14] MEDS: Lactated Ringers 1,000 ML IV SCH (07:29)
[2024-06-14] MEDS ORDERED: ceFAZolin 1 GM in Sodium Chloride 0.9% 50 ML IV ONE (07:30)
[2024-06-14] MEDS: ceFAZolin 1 GM in Premix Bag 1 BAG IV ONE (07:45)
[2024-06-14 07:52] LABS: ANION GAP 11.9 mmol/L (5.0-14.0); CALCIUM 10.1 mg/dL (8.5-10.1); CREATININE 0.9 mg/dL (0.6-1.0); EST CRCL DRUG DOSING (CG) 44.68 mL/min; POTASSIUM,K 3.7 mmol/L (3.6-5.2)
[2024-06-14] MEDS ORDERED: Dexamethasone 4 MG/ML SDV ONE (08:06)
[2024-06-14] MEDS ORDERED: Ondansetron 4 MG/2 ML SDV ONE (08:06)
[2024-06-14] MEDS: Bupivacaine 0.5% 30 ML SDV ONE (08:24)
== END 2024-06-14 09:55 | disposition home or self-care (01) ==
LOC: JP.SDS 06:33
PROVIDERS: ATTEND Specialist
DX: M65.4 Radial styloid tenosynovitis [de Quervain] (principal); I10 Essential (primary) hypertension; F41.9 Anxiety disorder, unspecified
CPT/HCPCS: 25000; 36415; 80048; 85027; A9270; J0665; J0689; J1100; J2250; J2405; J2704; J3010; J7120